=== PATIENT | male | born 1950 | race Caucasian/White ===

== ENCOUNTER 2016-08-28 13:59 | Inpatient (IN) ==
[2016-08-28] MEDS ORDERED: CLINDAMYCIN INJ 900 MG in PREMIX 1 EACH IV STA (14:52)
[2016-08-28] MEDS ORDERED: methylPREDNISolone SOD SUC 125 MG/2 ML VIAL IV STA (14:52)
--- NOTE | 2016-08-28 15:00 | Emergency Department Note ---
Arrival - Arrival Chief Complaint: Extremity Problem Stated Complaint: C/O BLISTERS ON RIGHT LOWER EXTREMITY ED Nursing Triage Note: C/O BLISTERS ON RIGHT LOWER EXTREMITY. PT HAS SPLINT ON LEG DUE TO Mode of Arrival: Stretcher Limitations: No Limitations Source: Patient Time Seen by Provider: 08/28/16 14:49 - History of Present Illness HPI Narrative: This 65-year-old white male presents with complaints of large bullae of the right lower extremitywith pain following evaluation yesterday at [facility] after a fall. He was told at that time that he had a fracture of some sort which sounds like the tibial plateau although he was only given a brace at that time. Notable was upon taking off the brace this morning, he had multiple bullae along the anterior compartment of the leg with some associated mild erythema but diffuse tenderness of the leg. Complicating this is the fact the patient has severe peripheral vascular disease followed by Dr. Alvarez at our institution and has had long-term problems with claudication pain. Currently, he is awaiting Dr. العراقي to address right carotid artery obstruction as well as Dr. waggoner to perform a cardiac catheterization although the patient currently does not have any complaints of chest pain. He currently denies any chills or fever in association with this. Despite the appearance of the leg he appears in no acute medical distress. Onset (ago): hour(s) (Patient presents 24 hours post inciting incident.) Allergies/Adverse Reactions: Allergies Allergy/AdvReac Type Severity Reaction Status Date / Time Sulfa (Sulfonamide Allergy Severe RASH Verified 07/12/16 06:46 Antibiotics) Home Medications: Home Medications Medication Instructions Recorded Confirmed Type Baclofen Tab [Lioresal] 10 mg PO TID 07/06/16 08/28/16 History HYDROcodone/ACETAMIN 10-325 [[place] 1 tablet PO Q4H 07/06/16 08/28/16 History 10-325] Tamsulosin [Flomax] 0.4 mg PO QAM 07/06/16 08/28/16 History Gabapentin Cap/Tab [Neurontin 600 mg PO TID 07/12/16 08/28/16 History Cap/Tab] Diltiazem Cd Cap [Cardizem CD] 240 mg PO QAM 07/14/16 08/28/16 History Rosuvastatin Calcium [Rosuvastatin 20 mg PO BEDTIME 08/28/16 08/28/16 History Calcium] Review of System - Review of System 12 point system: reviewed and no additional remarkable complaints except as stated - Review of System Constitutional: Present: as per HPI Cardiovascular: Present: as per HPI Musculoskeletal: Present: as per HPI Skin: Present: as per HPI Medical,Surgical,& Family Hx - Medical History Cardio: History of: Cardiac Dysrhythmia (A FIB) Comment Only: Cardiovascular Problems (aneurysm) Neurology: No history of: Seizures HEENT: History of: Ear Problem (hearing low), Eye Problem Musculoskeletal: History of: Herniated Disk (3 was givern injections in [place] does not remember dr or clinic) Other: No history of: Anesthesia Reactions - Surgical History Abdominal Surgeries: Comment Only: Abdominal Surgery (aneurysm) Orthopedic Surgeries: Surgical HX of;: Orthopedic Surgery (injections) - Family History Family History: Reports;: Family Cancer (mom), Family Heart Disease (dad) - Social History Smoking Status: Current every day smoker Frequency of Alcohol Use: Rarely Type of Drug Use: None Exam Physical Examination: GENERAL: Well developed, well nourished disheveled white male in no acute distress. HEENT: Normocephalic. No trauma. Moist mucous membranes. EOMI. PERRLA. ENT NML poor dentition NECK: Supple. No adenopathy. CARDIAC: Regular. No murmurs. Heart rate 105 CHEST: Clear to auscultation. No respiratory distress. O2 sat 97% ABDOMEN: Soft. Nontender. Active bowel sounds. EXTREMITIES: No trauma. Normal ROM. No pedal edema. Bilateral cool feet with palpable pulse and fair capillary refill but the left foot much less so on the right with associated diffuse anterior compartment bullae of the right lower extremity. Also notable is an extremely swollen right knee with joint effusion and diffuse ecchymosis SKIN: No diaphoresis. No rash. Bullous changes of the anterior compartment as noted above NEURO: Alert. Oriented 3. Motor, sensory, vibratory intact. No focal deficits. Vital Signs: Vital Signs Temperature 98.1 F 08/28/16 14:02 Pulse Rate 104 H 08/28/16 14:02 Respiratory Rate 18 08/28/16 14:02 Blood Pressure 103/77 08/28/16 14:02 O2 Sat by Pulse Oximetry 97 08/28/16 14:02 Course - Reevaluation(s) Reevaluation #1: Discussed with patient the need for hospitalization given his diapers complex problems. - Consultations Consultation #1: Discussed with the hospitalist service who will admit for further evaluation treatment. Results - Labs CBC & BMP: 08/28/16 15:19 08/28/16 15:19 Labs: I have reviewed the lab and noted its gross normalcy - Diagnostic Findings Procedure: Chest x-ray: image reviewed by me, report reviewed by me (Evidence of COPD as well as multiple calcified pulmonary nodules), CT: image reviewed by me, report reviewed by me (CT Gillian of the lower extremities reveals scattered diffuse arterial occlusions which by Flor by chronic supply blood down to the feet bilaterally likewise noted is the previously described abdominal aneurysm) , Ultrasound: image reviewed by me, report reviewed by me (No evidence of right lower extremity DVT) Disposition Clinical Impression: Bullous cellulitis of the RLE, Complex right tibial plateau fracture, Left carotid artery occlusion, Diffuse arterial occlusive disease, Polysubstance use Case discussed with: patient, patient's family Disposition: Still a Patient Condition: Guarded Time of Disposition: 18:03
[2016-08-28] MEDS ORDERED: CLINDAMYCIN INJ 50 ML IV ONE (15:26)
[2016-08-28] MEDS ORDERED: methylPREDNISolone SOD SUC 125 MG/2 ML VIAL ONE (15:26)
[2016-08-28 15:28] LABS: Basophils # 0.1 10*3/uL (0.0-0.2); Basophils % 0.5 % (0.0-0.8); Eosinophils # 0.4 10*3/uL (0.0-0.87); Eosinophils % 3.9 % (0.00-10.9); Hematocrit 40.2 VOL% (42.0-52.0); Hemoglobin 12.7 GM/DL (14.0-18.0); Immature Granulocytes % 0.5 %; Immature Granulocytes Absolute 0.05 #; Lymphocytes # 2.2 10*3/uL (1.4-4.0); Lymphocytes % 21.3 % (21.2-54.2); Mean Corpuscular HGB Conc 31.6 GM/DL (32-36); Mean Corpuscular Hemoglobin 30 PG (27-34); Mean Platelet Volume 8.9 FL (9.6-12.0); Monocytes % 9.7 % (1.7-12.7); Neutrophils # 6.8 10*3/uL (1.4-7.4); Neutrophils % 64.1 % (38.7-73.9); Platelet Count 278 T/CUMM (130-400); Red Blood Count 4.23 MC/CUMM (3.8-5.5); Red Cell Distribution Width 15.4 % (9.3-17.3); White Blood Count 10.5 T/CUMM (4-12)
[2016-08-28 15:46] LABS: PT Patient Result 11.1 SECS
--- NOTE | 2016-08-28 15:52 | Ultrasound Report ---
History: Swelling of the right lower extremity Date: 08/28/2016 Study: Right lower extremity color flow venous Doppler study Comparison exam: No previous similar exam Color Doppler, wave form analysis, and compression analysis of the deep veins of the right lower extremity from the common femoral vein level through the popliteal vein level shows that the veins are readily compressible. There is no abnormal intraluminal material to suggest thrombus. Waveform analysis is unremarkable. Ultrasound images were captured and archived Impression: No evidence of acute DVT on the right PROCEDURE INTERPRETED AT [facility] DEPARTMENT OF RADIOLOGY Final Report Signed by: Dr. Melody Quinones
[2016-08-28 15:58] LABS: Alanine Aminotransferase 15 U/L (16-61); Albumin 3.3 G/DL (3.4-5.0); Alkaline Phosphatase 117 U/L (45-117); Aspartate Amino Transferase 22 U/L (0-37); Bilirubin,Total < 0.39 MG/DL (0.2-1.0); Blood Urea Nitrogen 13 MG/DL (7-18); Calcium 8.2 MG/DL (8.5-10.1); Glucose 92 MG/DL (74-106); Osmolality,Calculated 287.7 MOS/KG (273-304); Potassium 4.2 MMOL/L (3.5-5.1); Sodium 145 MMOL/L (136-145); Total Protein 5.9 G/DL (6.4-8.3); Troponin I Only 0.019 NG/ML (0.00-0.045)
--- NOTE | 2016-08-28 16:15 | CT Report ---
History: Tibial plateau fracture Date: 08/28/2016 Study: CT right knee without contrast Comparison exam: No previous knee imaging study Thin spiral CT sections were obtained through the right knee without IV contrast. Multiplanar reconstruction images are also evaluated. This CT exam was performed using one or more the following dose reduction techniques: Automated exposure control, adjustment of the MA and/or KV according to patient size, or use of iterative reconstruction technique. There is a mildly displaced comminuted fracture of the proximal metaphysis and epiphysis of the right tibia with mild displacement of fracture fragments and relatively good alignment. Fracture planes extend to the articular surface of the lateral tibial plateau. There is some sclerosis about some of the tibial fracture planes, suggesting that there could be subacute component of this injury. There is also ankylosis of the proximal tibia and the fibular head at the level of the syndesmosis. There is a nondisplaced oblique fracture through the proximal fibular epiphysis and metaphysis with near anatomic alignment. There is a moderate suprapatellar joint effusion. There is mild osteophyte formation in all 3 joint compartments. There is soft tissue edema about the right lower leg. Impression: Acute or subacute comminuted fracture of the proximal tibial epiphysis and metaphysis, with extension of the fracture planes to the articular surface of the lateral tibial plateau. There is also a nondisplaced oblique fracture through the proximal fibular metaphysis and epiphysis. Joint effusion. PROCEDURE INTERPRETED AT [facility] DEPARTMENT OF RADIOLOGY Final Report Signed by: Dr. Melody Quinones
[2016-08-28 16:45] LABS: Barbiturates Screen,Urine Negative (Negative); Benzodiazepines Screen,Urine Negative (Negative); Cannabinoid Screen,Urine Positive (Negative); Opiate Screen,Urine Positive (Negative); Phencyclidine Screen,Urine Negative (Negative)
--- NOTE | 2016-08-28 16:51 | CT Report ---
History: Peripheral vascular disease. Abdominal aortic aneurysm. "cold leg." Date: 08/28/2016 Study: CT angiogram abdominal aorta and bilateral lower extremity runoff Comparison exam: CT angiogram abdomen and pelvis performed 9 days prior to this study Spiral CT sections were obtained from the lung bases through the feet during IV administration of 125 mL Omnipaque 350. In addition to multiplanar reconstruction images, 3-D images were also generated, archived, and analyzed. The CT exam was performed using one or more of the following dose reduction techniques: Automated exposure control, adjustment of the mA and/or kV according to patient size, or use of iterative reconstruction technique. There is an infrarenal abdominal aortic aneurysm which has been treated with endovascular stent. This is unchanged from the study 9 days ago. The [place] aorta sac measures approximately 8.2 cm, unchanged. There is no retroperitoneal hemorrhage. The exam is otherwise unchanged to the level of the groin from the previous study. There is scattered moderate atherosclerotic irregularity and narrowing throughout the right SFA which is patent. Similarly, there is patency of the moderately diseased right popliteal artery. There is severe trifurcation disease. The peroneal artery is patent to the level of the ankle. The severely diseased posterior tibial artery is grossly patent to the foot. The right anterior tibial artery occludes proximally. The left SFA is patent and exhibits moderate diffuse atherosclerotic irregularity. There is evidence of moderate to high grade focal stenosis of the proximal left popliteal artery superior to the level of the knee joint. The severely diseased left peroneal and posterior tibial arteries are grossly patent. The left anterior tibial artery occludes at its proximal aspect. The upper abdominal organs are unchanged from the recent comparison study. There is no acute abnormality of the liver, spleen, pancreas, bile ducts, adrenal glands, or kidneys. There is no karen bowel obstruction or pneumoperitoneum. There is diverticulosis without karen diverticulitis. Impression: Large infrarenal abdominal aortic aneurysm treated with endovascular stent. The [place] aneurysm sac measures over 8 cm diameter as before. There is no retroperitoneal hemorrhage or obvious endovascular leak. Severe trifurcation disease of either lower extremity as detailed above PROCEDURE INTERPRETED AT [facility] DEPARTMENT OF RADIOLOGY Final Report Signed by: Dr. Melody Quinones
--- NOTE | 2016-08-28 18:34 | Hospitalist History & Physical ---
Assessment and Plan - Time spent with patient Time spent with patient: Greater than 30 minutes (1) Tibial plateau fracture, right Status: Acute Assessment and plan: Mr. Adam is a 65-year-old white male with PVD, history of AAA repair 2, hypertension, and A. fib on [facility] admitted by hospital medicine with a complex right tibial plateau fracture. Patient has fracture blisters and increased pain and his leg is deformed. Patient also is in need of heart cath that was already scheduled for Monday with Dr. carr. Patient will be given IV fluids, pain and nausea control. We will restart his home medicines. Spoke with Dr. Atkins on the phone and he recommended using knee immobilizer for now and painting the blisters with Betadine. Will consult wound care nurse for in the morning to aspirate blisters and recommend further wound care under knee immobilizer. Dr. Atkins says he will not operate with fracture blisters as it is. We will also consult Dr. العراقي and let him know the patient is here and Dr. Carr in cardiology since patient was already scheduled for heart cath on Monday. Patient's case has been discussed with Dr. Lopez the admitting hospitalist for Dr. Hsieh and further recommendations to follow. Current Visit: Yes (2) Peripheral vascular disease Status: Acute Current Visit: Yes (3) Left carotid bruit Status: Acute Current Visit: Yes (4) History of AAA (abdominal aortic aneurysm) repair Status: Acute Current Visit: No (5) Bilateral iliac artery stent placement Status: Acute Current Visit: No (6) Tobacco abuse Status: Acute Current Visit: No (7) Elevated blood pressure reading Status: Acute Current Visit: No History of Present Illness Chief complaint: Right leg pain History of present illness: Mr. Adam is a 65 year old male with history of PVD, hypertension, afib, AAA repair in July presenting to the ED with 1 day history of right tibial plateau fracture with bullous blisters. Patient states he fell off a porch yesterday and was taken to [facility] where Dr. Otto diagnosed him with a complex tibial plateau fracture. They put him in a cast and he was supposed to follow-up with an orthopedic surgeon there in [place] on Monday. Patient states the splint that they put on him started hurting so he removed it today and he found a bunch of blisters with increased swelling of the knee leg and ankle. Patient also states that he has a 90% blockage in his left carotid that Dr. العراقي has been following and he was scheduled for a heart cath with Dr. carr this Monday. He just had endovascular aneurysm repair with extension of the iliac limbs by Dr. العراقي in early July. Patient developed A. fib on the table and he was started on Cardizem following that. Patient is not on any blood thinner thinners or antiplatelet medications. Patient denies headache, shortness of breath, chest pain, abdominal pain, dysuria, constipation or diarrhea. He does have decreased sensation of the right foot and no pulses could be found by Doppler on either foot. After discussion with Dr. Hernandes the ED physician and Dr. Rainey the hospitalist it was decided patient will be admitted for further evaluation and treatment. Home Medications Medication Instructions Recorded Confirmed Type Baclofen Tab [Lioresal] 10 mg PO TID 07/06/16 08/28/16 History HYDROcodone/ACETAMIN 10-325 [[place] 1 tablet PO Q4H 07/06/16 08/28/16 History 10-325] Tamsulosin [Flomax] 0.4 mg PO QAM 07/06/16 08/28/16 History Gabapentin Cap/Tab [Neurontin 600 mg PO TID 07/12/16 08/28/16 History Cap/Tab] Diltiazem Cd Cap [Cardizem CD] 240 mg PO QAM 07/14/16 08/28/16 History Rosuvastatin Calcium [Rosuvastatin 20 mg PO BEDTIME 08/28/16 08/28/16 History Calcium] Allergies Allergy/AdvReac Type Severity Reaction Status Date / Time Sulfa (Sulfonamide Allergy Severe RASH Verified 07/12/16 06:46 Antibiotics) Medical,Surgical,& Family Hx - Medical History Cardio: History of: Cardiac Dysrhythmia (A FIB) Comment Only: Cardiovascular Problems (aneurysm) Neurology: No history of: Seizures HEENT: History of: Ear Problem (hearing low), Eye Problem Musculoskeletal: History of: Herniated Disk (3 was givern injections in [place] does not remember dr or clinic) Other: No history of: Anesthesia Reactions - Surgical History Abdominal Surgeries: Comment Only: Abdominal Surgery (aneurysm) Orthopedic Surgeries: Surgical HX of;: Orthopedic Surgery (injections) Additional Surgical History: AAA repair in 2010. AAA revision with iliac extension in 07/2016 - Family History Family History: Reports;: Family Cancer (mom), Family Heart Disease (dad) - Social History Smoking Status: Current every day smoker Frequency of Alcohol Use: Rarely Type of Drug Use: None Lives With:: Alone Functional capacity: independent ambulation Review of systems: 10 system review of systems was obtained and pertinent positives and negatives per HPI Exam - Constitutional Vitals: Period Temp Pulse Resp BP Sys/Go Pulse Ox Last 24 Hr 98.7 F 109 18 158/102 96 Exam: Constitutional System: No distress. No tremulousness. Head: Normocephalic, atraumatic. Ears, Nose and Throat System: No evidence of Otitis or Mastoiditis. No epistaxis or discharge, poor dentition Eyes System: Pupils equal, round, and reactive. Extraocular muscles intact. Neck: Supple, without adenopathy, No jugular venous distention. No thyromegaly, neck mass, or prior surgery apparent. Carotid bruit on the left Respiratory System: Chest clear to auscultation. Cardiovascular System: Heart with regular rate and rhythm. No murmur. GI System: Abdomen soft, nontender. Normo active bowel sounds present. Musculoskeletal System: Right leg with edema around the knee lower leg and ankle , positive popliteal pulses, negative DP pulses, positive PT pulses Neurological System: No discernable sensory deficit. No aphasia, decreased sensation on the right dorsum of the foot Psychiatric System: Conversation is rational Results - Labs CBC & BMP: 08/28/16 15:19 08/28/16 15:19 Lab Results: I have reviewed the past 24 hour labs - Diagnostic Findings Procedure: CT: report reviewed by me (Right knee shows acute or subacute comminuted fracture of the proximal tibial epiphysis and metaphysis, with extension of the fracture planes to the articular surface of the lateral tibial plateau. There is also nondisplaced oblique fracture through the proximal fibular metaphysis and epiphysis with joint effusion)
[2016-08-28] MEDS ORDERED: PROMETHAZINE 25 MG TABLET PO PRN (18:45)
[2016-08-28] MEDS ORDERED: ONDANSETRON 4 MG/2 ML VIAL IV PRN (18:45)
[2016-08-28] MEDS ORDERED: DOCUSATE SODIUM 100 MG CAPSULE PO PRN (18:45)
[2016-08-28] MEDS ORDERED: guaiFENesin/DM ER 600-30 MG TABLET PO PRN (18:45)
[2016-08-28] MEDS ORDERED: NICOTINE 21 MG/24 HR PATCH TRANSDERM PRN (18:45)
[2016-08-28] MEDS ORDERED: diphenhydrAMINE CAP 25 MG CAPSULE PO PRN (18:45)
[2016-08-28] MEDS ORDERED: ACETAMINOPHEN 325 MG TABLET PO PRN ×2 (18:45)
[2016-08-28] MEDS ORDERED: MORPHINE 2 MG/1 ML SYRINGE IV PRN (18:45)
--- NOTE | 2016-08-28 18:45 | XRay Report ---
History: Cough Date: 08/28/2016 Study: Chest x-ray AP portable Comparison exam: July 12, 2016 chest x-ray The cardiac silhouette is not enlarged. There is no mediastinal mass. The pulmonary vasculature is not engorged. There is a calcified granuloma in the right lower lung. There is mild platelike subsegmental atelectasis in the right lung base. There is no karen pneumonia. There are some probable scattered mild emphysematous changes. There is no gross pleural effusion. There is osteopenia and mild thoracic spondylosis. Impression: Mild platelike subsegmental atelectasis right lung base. Chronic lung changes. No definite acute process otherwise PROCEDURE INTERPRETED AT [facility] DEPARTMENT OF RADIOLOGY Final Report Signed by: Dr. Melody Quinones
[2016-08-28] MEDS: BACLOFEN 10 MG TABLET PO SCH (23:02)
[2016-08-28] MEDS: GABAPENTIN 600 MG TABLET PO SCH (23:02)
[2016-08-28] MEDS: ROSUVASTATIN 20 MG TABLET PO SCH (23:02)
[2016-08-28] MEDS: SODIUM CHLORIDE 0.9% 1,000 ML IV SCH (23:28)
[2016-08-28] MEDS: CLINDAMYCIN INJ 600 MG in PREMIX 1 EACH IV SCH (23:29)
[2016-08-29 02:06] LABS: Basophils % 0.1 % (0.0-0.8); Hematocrit 35.1 VOL% (42.0-52.0); Hemoglobin 11.6 GM/DL (14.0-18.0); Immature Granulocytes % 0.5 %; Immature Granulocytes Absolute 0.05 #; Lymphocytes # 0.6 10*3/uL (1.4-4.0); Lymphocytes % 5.5 % (21.2-54.2); Mean Corpuscular Hemoglobin 30 PG (27-34); Mean Corpuscular Volume 91.6 FL (87-102); Mean Platelet Volume 9.6 FL (9.6-12.0); Monocytes # 0.1 10*3/uL (0.11-0.8); Monocytes % 1.4 % (1.7-12.7); Neutrophils # 9.5 10*3/uL (1.4-7.4); Neutrophils % 92.5 % (38.7-73.9); Platelet Count 273 T/CUMM (130-400); Red Blood Count 3.83 MC/CUMM (3.8-5.5); Red Cell Distribution Width 15.3 % (9.3-17.3); White Blood Count 10.3 T/CUMM (4-12)
[2016-08-29 02:33] LABS: Calcium 7.9 MG/DL (8.5-10.1); Magnesium 2.1 MG/DL (1.8-2.4); Potassium 4.4 MMOL/L (3.5-5.1)
[2016-08-29] MEDS: SODIUM CHLORIDE 0.9% 1,000 ML IV SCH ×4 (04:30→23:44)
[2016-08-29] MEDS: CLINDAMYCIN INJ 600 MG in PREMIX 1 EACH IV SCH ×4 (04:37→23:36)
--- NOTE | 2016-08-29 07:19 | XRay Report ---
Referring Physician: Shefali Mejia Exam: XR tibia fibula RT 2 views, XR knee 2V RT Date: August 29, 2016 at 6:17 AM Reason: Tibial plateau fracture, right knee pain, initial encounter Comparison: CT right knee August 28, 2016 Findings: There is a displaced fracture of the proximal right tibia, centered at the metaphysis and extending to the articular surface of the lateral tibial plateau. There is also a nondisplaced oblique fracture of the proximal right fibula. Please see the recent CT for further details. There is mild tricompartmental degenerative change at the right knee and a right knee joint effusion. There is marginal spurring at the ankle mortise and distal tibiofibular articulation. Marginal spurring is also noted at the calcaneus and tarsal bones. Nonspecific rounded densities project at the right calf and may be artifactual. Impression: 1. Displaced fracture of the proximal right tibia as above. 2. Nondisplaced fracture of the proximal right fibula. PROCEDURE INTERPRETED AT [facility] DEPARTMENT OF RADIOLOGY Final Report Signed by: Dr. Musa Farmer
--- NOTE | 2016-08-29 07:43 | EKG Report ---
Stationary ECG Study [facility] Test Date: 08/29/2016 7:32:54 AM Pat Name: RONDA GREER Department: Room: 329 Gender: M Rn Picu: MARY : 1950 Requested by: Shefali Mejia Order Number: [id number] Reading MD: RED CARLISLE Intervals [place] Rate: 100 P: 79 OK: 147 QRS: 78 QRSD: 92 T: 55 QT: 325 QTc: 382 Interpretive Statements SINUS TACHYCARDIA Electronically Signed On 09-01-16 10:02:52 CDT by RED CARLISLE [email or web address]
--- NOTE | 2016-08-29 09:13 | Hospitalist Progress Note ---
Assessment and Plan (1) CAD (coronary artery disease) Status: Acute Assessment and plan: As noted by cardiology, the patient underwent a stress nuclear test on 08/09/16 demonstrating evidence of inferior ischemia. He had been scheduled to undergo cardiac catheterization on 08/31/16. He is presently stable with no chest pain or shortness of breath. Current Visit: Yes Qualifiers: Coronary Disease-Associated Artery/Lesion type: [place] artery [place] vs. transplanted heart: [place] heart Associated angina: without angina Qualified Code(s): I25.10 - Atherosclerotic heart disease of [place] coronary artery without angina pectoris (2) Carotid artery disease Status: Acute Assessment and plan: As also noted by cardiology, carotid ultrasound has demonstrated him to have an obstruction of 80-99% of the proximal left internal carotid artery. He is asymptomatic at this time with no neurologic complaints. Current Visit: Yes (3) Blisters of multiple sites Status: Acute Assessment and plan: He has multiple blisters of his right lower extremity, in the area covered by the previous cast, with no evidence of active infection. He will be seen in consultation by the wound care nurse for management. Current Visit: Yes (4) History of AAA (abdominal aortic aneurysm) repair Status: Chronic Assessment and plan: Stable. No intervention planned at this time. Current Visit: No (5) Tibial plateau fracture, right Status: Acute Assessment and plan: He has been seen in consultation by orthopedic surgery. They will defer surgery until resolution of the blisters of his right lower extremity. He will be treated with the requested dose of [place] for pain control. Current Visit: Yes (6) Hypertension Status: Chronic Assessment and plan: His blood pressure today is 147/89.He is being treated with diltiazem for his hypertension. Current Visit: Yes (7) History of atrial fibrillation Status: Chronic Assessment and plan: His heart rate has been between 93-108 /min since hospitalization. He will continue on diltiazem. Current Visit: Yes Hospitalist: Subjective Interval history: Mr. Spear is a 65-year-old white male with history of peripheral vascular disease, coronary artery disease, hypertension, atrial fibrillation, and aortic abdominal aneurysm status post endograft. He sustained a complex right tibial plateau fracture on 08/27/16 for which she was treated at [facility]. He had a cast placed at that time. He subsequently noticed severe swelling of his right foot for which reason he came to this hospital. The cast was removed here demonstrating multiple blisters of his right leg. There was no evidence of an active infection. He was seen in consultation by orthopedic surgery who elected to defer surgery at this time until resolution of the blisters of his right leg. He complains of pain of his right knee and leg and requests that his [place] be increased from 7.5-10 mg. Mr. Spear has a previous history of coronary and carotid artery disease. He was seen in consultation by cardiology. They had performed an outpatient stress nuclear test on him by Dr. Carr on 08/09/16 demonstrating evidence of inferior ischemia. Patient was scheduled to undergo a cardiac catheterization on 08/31/16. Patient is stable with no chest pain or shortness of breath. His atrial fibrillation has been well controlled with diltiazem. Exam - Constitutional Vitals: Period Temp Pulse Resp BP Sys/Go Pulse Ox Last 24 Hr 97.5 F-98.7 F 96-109 18-20 126-160/75-102 96-98 General appearance: normal weight, no acute distress - Head Head exam: Present: normal inspection, normocephalic - Eye Eye exam: Present: EOMI Pupils: Present: ROSENDO - Neck Neck exam: Present: normal inspection - Respiratory Respiratory exam: Present: clear to auscultation bilaterally - Cardiovascular Cardiovascular exam: Present: regular rate and rhythm, other (No murmur, rub, or gallop.) - GI/Abdominal GI/Abdominal exam: Present: normal bowel sounds, soft, other (Nontender with no palpable masses or hepatosplenomegaly.) - Extremities Exam Extremities exam: Present: other (There were multiple blisters of his right leg between the knee and ankle. There is no evidence of active infection.) - Back Exam Back exam: Present: normal inspection - Neurological Exam Neurological exam: Present: alert, oriented X3 - Psychiatric Psychiatric exam: Present: normal affect - Skin Skin exam: Present: normal color, warm, dry Results - Labs CBC & BMP: 08/29/16 01:33 08/29/16 01:33 Quality Measures - VTE Contraindication to Mechanical VTE Prophylaxis: Trauma to Legs
[2016-08-29] MEDS: DILTIAZEM CD 240 MG CAPSULE PO SCH (09:37)
[2016-08-29] MEDS: TAMSULOSIN 0.4 MG CAPSULE PO SCH ×2 (09:39→16:01)
[2016-08-29] MEDS: PANTOPRAZOLE 40 MG TABLET PO SCH (09:39)
[2016-08-29] MEDS: GABAPENTIN 600 MG TABLET PO SCH ×3 (09:39→21:06)
[2016-08-29] MEDS: BACLOFEN 10 MG TABLET PO SCH ×3 (09:39→21:06)
--- NOTE | 2016-08-29 11:22 | Orthopedic Consult Note ---
History of Present Illness Chief complaint: Right tibial plateau fracture, with fracture blisters History of present illness: Mr. Adam is a 65 year old male See dictated reports Plan for initial nonoperative treatment due to fracture blistering and the severity of his carotid artery disease as well as coronary artery disease. Consider what is the best option for him nonoperative versus operative once these other issues have been decided about it within the next day or 2 Home Medications Medication Instructions Recorded Confirmed Type Baclofen Tab [Lioresal] 10 mg PO TID 07/06/16 08/28/16 History HYDROcodone/ACETAMIN 10-325 [[place] 1 tablet PO Q4H 07/06/16 08/28/16 History 10-325] Tamsulosin [Flomax] 0.4 mg PO QAM 07/06/16 08/28/16 History Gabapentin Cap/Tab [Neurontin 600 mg PO TID 07/12/16 08/28/16 History Cap/Tab] Diltiazem Cd Cap [Cardizem CD] 240 mg PO QAM 07/14/16 08/28/16 History Rosuvastatin Calcium [Rosuvastatin 20 mg PO BEDTIME 08/28/16 08/28/16 History Calcium] Allergies Allergy/AdvReac Type Severity Reaction Status Date / Time Sulfa (Sulfonamide Allergy Severe RASH Verified 07/12/16 06:46 Antibiotics) Medical,Surgical,& Family Hx - Medical History Cardio: History of: Cardiac Dysrhythmia (A FIB) Comment Only: Cardiovascular Problems (aneurysm) Neurology: No history of: Seizures HEENT: History of: Ear Problem (hearing low), Eye Problem Respiratory: History of: COPD Renal: History of: Renal Problems (URINARY RETENTION) Musculoskeletal: History of: Herniated Disk (4 was givern injections in [place] does not remember dr or clinic) Other: No history of: Anesthesia Reactions - Surgical History Abdominal Surgeries: Comment Only: Abdominal Surgery (aneurysm) Orthopedic Surgeries: Surgical HX of;: Orthopedic Surgery (injections) - Family History Family History: Reports;: Family Cancer (mom), Family Heart Disease (dad) - Social History Smoking Status: Current every day smoker Frequency of Alcohol Use: Rarely Type of Drug Use: None Exam - Constitutional Vitals: Period Temp Pulse Resp BP Sys/Go Pulse Ox Last 24 Hr 97.5 F-98.7 F 96-109 18-20 126-160/75-102 96-98 Results - Labs CBC & BMP: 08/29/16 01:33 08/29/16 01:33
[2016-08-29] MEDS: ENOXAPARIN 40 MG/0.4 ML SYRINGE SUBCUT SCH ×2 (11:42→18:30)
--- NOTE | 2016-08-29 17:52 | Vascular Surgery Consult Note ---
History of Present Illness Chief complaint: left carotid stenosis,aaa repair History of present illness: Mr. Adam is a 65 year old male Aamir Spear is a 65-year-old man admitted with a right tibial plateau fracture with some significant interestingly he underwent the endovascular revision of a previous aortic stent graft that had developed and obliques of both common iliacs he had stent extension of both iliacs and has done well and a CT scan done on this admission shows no evidence of the Endo legs any longer. He has very large aortic aneurysm sac which I would not anticipate decreasing in diameter rapidly. Significantly he was evaluated by Dr. waggoner and underwent carotid ultrasound and subsequently CT angiography about a week ago and has been found to have a very high-grade stenosis of the left internal carotid artery. Old evidence indicates that this is asymptomatic and he has an open right carotid system. In discussing it with Dr. Atkins at this point in time I do not think it is critical that the carotid be repaired and that if the right leg needs to undergo repair I think that it can safely be done prior to a carotid endarterectomy. Also I would prefer not to operate on the carotid until we are certain no infection is present due to the blistering on the leg. I will follow with you while he is here. Home Medications Medication Instructions Recorded Confirmed Type Baclofen Tab [Lioresal] 10 mg PO TID 07/06/16 08/28/16 History HYDROcodone/ACETAMIN 10-325 [[place] 1 tablet PO Q4H 07/06/16 08/28/16 History 10-325] Tamsulosin [Flomax] 0.4 mg PO QAM 07/06/16 08/28/16 History Gabapentin Cap/Tab [Neurontin 600 mg PO TID 07/12/16 08/28/16 History Cap/Tab] Diltiazem Cd Cap [Cardizem CD] 240 mg PO QAM 07/14/16 08/28/16 History Rosuvastatin Calcium [Rosuvastatin 20 mg PO BEDTIME 08/28/16 08/28/16 History Calcium] Allergies Allergy/AdvReac Type Severity Reaction Status Date / Time Sulfa (Sulfonamide Allergy Severe RASH Verified 07/12/16 06:46 Antibiotics) Medical,Surgical,& Family Hx - Medical History Cardio: History of: Cardiac Dysrhythmia (A FIB) Comment Only: Cardiovascular Problems (aneurysm) Neurology: No history of: Seizures HEENT: History of: Ear Problem (hearing low), Eye Problem Respiratory: History of: COPD Renal: History of: Renal Problems (URINARY RETENTION) Musculoskeletal: History of: Herniated Disk (4 was givern injections in [place] does not remember dr or clinic) Other: No history of: Anesthesia Reactions - Surgical History Abdominal Surgeries: Comment Only: Abdominal Surgery (aneurysm) Orthopedic Surgeries: Surgical HX of;: Orthopedic Surgery (injections) - Family History Family History: Reports;: Family Cancer (mom), Family Heart Disease (dad) - Social History Smoking Status: Current every day smoker Frequency of Alcohol Use: Rarely Type of Drug Use: None Exam - Constitutional Vitals: Period Temp Pulse Resp BP Sys/Go Pulse Ox Last 24 Hr 97.5 F-99.0 F 82-109 18-20 126-160/75-102 95-98 Quality Measures - VTE Contraindication to Mechanical VTE Prophylaxis: Trauma to Legs Results - Labs CBC & BMP: 08/29/16 01:33 08/29/16 01:33
--- NOTE | 2016-08-29 18:07 | Cardiology Consult Note ---
I, Patricia Berry RN, am scribing for, and in the presence of, Juan Gordon MD 17:59. Assessment and Plan - Time spent with patient Time spent with patient: Greater than 30 minutes (Due to assessment, planning, documentation, medication review) (1) Tibial plateau fracture, right Status: Acute Assessment and plan: This is a complicated situation. He has a tibial plateau fracture, blisters on his right leg without obvious infection[? Due to the cast, allergic reaction to the glue,/cast, or possibly cast was on too tight-?], at least moderate left carotid disease and the suggestion of some coronary disease. plan/recommendation: Probably allow the blisters to resolve before doing any other intervention If Dr. Braeden Atkins says the plateau fracture has to be fixed soon or there will be major problems, then it would trump other options. Otherwise if it can wait, I would allow his blister to heal, then doing a heart cath, then do the plateau fracture surgery--in this order. The above was discussed with the patient. He agrees with the plan. I called Dr. Braeden Atkins to talk with him, But could not get him. I will try to talk with him tomorrow I discussed with the patient the benefits of stopping tobacco/nicotine, the problems with continuing to use it, and options of treatment. The patient is considering this option. We will be sure he is on a beta-yeimi, aspirin, etc. so we will be well treated medically for CAD. He wants to quit smoking but says he cannot. He craves cigarettes very much. He is requesting help with quitting smoking. He craves his cigarettes very much. Will give a trial of bupropion 75 mg p.o. twice daily. I discussed the situation with Dr. carr, his primary director of vocational guidance. He agrees with our thoughts and the plans. Thank you for allowing me to participate in this patient's care Current Visit: Yes (2) Hypertension Status: Chronic Current Visit: Yes (3) Carotid artery bruit Status: Chronic Current Visit: Yes (4) History of atrial fibrillation Status: Chronic Current Visit: Yes (5) History of AAA (abdominal aortic aneurysm) repair Status: Chronic Current Visit: No (6) Abnormal myocardial perfusion study Problem details: it suggest inferior ischemia Status: Acute Current Visit: Yes (7) Carotid artery disease Status: Acute Current Visit: Yes (8) Blister of leg without infection Status: Acute Current Visit: Yes History of Present Illness - Data of Consult Patient: known to practice within the last 3 years Consult date: 08/28/16 Requesting Physician: Shefali Mejia - Consult Narrative Reason for consult: Atrial fibrillation History of present illness: Vp Strategic Planning: Dr. Carr Mr. Adam is a 65 year old male who is routinely seen by Dr. Carr with a history of bilateral carotid bruits, hypertension, atrial fibrillation ( recently new onset), herniated disc, and COPD. He had carotid ultrasound done August 09 of this year that showed 1-39% stenosis in the proximal right internal carotid artery, 80-99% stenosis in the proximal left internal carotid artery, and greater than 50% stenosis in the left external carotid artery. He tells me he is seeing Dr. العراقي for this. Nuclear stress test done in Dr. Carr's office August 09 of this year was read as an abnormal perfusion study. It was suggestive of low to moderate risk for future cardiovascular events, suggestive of single-vessel disease. It showed the perfusion defect is being in the distribution of the right coronary artery. He has been scheduled for an outpatient heart catheterization with Dr. Carr this Monday. Echo done in July of this year with ejection fraction 50-55%. Surgical history includes AAA repair 2010. He developed endoleak and underwent bilateral iliac artery stent graft placement extending both iliac outflow limbs by Dr. العراقي on July. He developed postop atrial fibrillation and was cardioverted with IV Cardizem. Family history includes mother with aneurysm and cancer in father with heart disease. He reports that he currently smokes every day, but states he is quitting. He is currently chewing nicotine gum. He reports he fell from his porch Monday and went to the patient have a general ER for evaluation. He denies dizziness or loss of consciousness. He was told he had a tibial plateau fracture and was put in a "wraparound cast", and to follow up there this week. He states his legs started hurting with a cast onset he removed it and found blisters on his right lower extremity as well as increased swelling in the left leg and ankle. He presented to the emergency department [facility] for further evaluation. Orthopedics has been consulted to evaluate this. Currently he is resting in bed in no acute distress. He denies any chest pain, shortness of breath, palpitations, or dizziness. EKG done on admission showed sinus tachycardia with heart rate of 100. 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 His blood pressure has been elevated , the most recent blood pressure is 147/89. His home medications have been restarted. Edema noted to right lower extremity, from the knee down. Blisters noted to right lower extremity. He reports discomfort in his right lower extremity when he tries to move it. Venous Doppler of the right lower extremity done yesterday was negative for DVT. His cardiac biomarkers have been negative 1. CC: Marshall Hsieh - Home Medications and Allergies Home Medications: Home Medications Medication Instructions Recorded Confirmed Type Baclofen Tab [Lioresal] 10 mg PO TID 07/06/16 08/28/16 History HYDROcodone/ACETAMIN 10-325 [[place] 1 tablet PO Q4H 07/06/16 08/28/16 History 10-325] Tamsulosin [Flomax] 0.4 mg PO QAM 07/06/16 08/28/16 History Gabapentin Cap/Tab [Neurontin 600 mg PO TID 07/12/16 08/28/16 History Cap/Tab] Diltiazem Cd Cap [Cardizem CD] 240 mg PO QAM 07/14/16 08/28/16 History Rosuvastatin Calcium [Rosuvastatin 20 mg PO BEDTIME 08/28/16 08/28/16 History Calcium] Allergies/Adverse Reactions: Allergies Allergy/AdvReac Type Severity Reaction Status Date / Time Sulfa (Sulfonamide Allergy Severe RASH Verified 07/12/16 06:46 Antibiotics) - Constitutional Constitutional: Present: as per HPI - EENT Eyes: Present: loss of vision, requires corrective lense Ears: Present: decreased hearing. Absent: ear pain, tinnitus Nose, mouth and throat: Present: headache(s). Absent: epistaxis, sore throat - Cardiovascular Cardiovascular: Present: dyspnea on exertion, edema. Absent: chest pain at rest , chest pain with activity, diaphoresis, dyspnea, radiating jaw, neck or arm pain, lightheadedness, orthopnea, palpitations - Respiratory Respiratory: Present: dyspnea on exertion. Absent: cough, dyspnea, hemoptysis, wheezing - Gastrointestinal Gastrointestinal: Absent: abdominal pain, constipation, diarrhea, hematemesis, hematochezia, melena, nausea, vomiting - Genitourinary Genitourinary: Absent: dysuria, hematuria - Musculoskeletal Musculoskeletal: Present: back pain, joint swelling, limited range of motion, muscle weakness - Neurological Neurological: Present: abnormal gait, frequent falls. Absent: confusion, dizziness, focal weakness, syncope - Psychiatric Psychiatric: Absent: anxiety, confusion, depression - Endocrine Endocrine: Present: fatigue - Hematologic/Lymphatic Hematologic/Lymphatic: Present: easy bruising. Absent: easy bleeding Medical,Surgical,& Family Hx - Medical History Cardio: History of: Cardiac Dysrhythmia (A FIB), Cardiovascular Problems ( aneurysm) Neurology: No history of: Seizures HEENT: History of: Ear Problem (hearing loss), Eye Problem Respiratory: History of: COPD Renal: History of: Renal Problems (URINARY RETENTION) Musculoskeletal: History of: Herniated Disk (4 was givern injections in [place] does not remember dr or clinic) - Surgical History Abdominal Surgeries: Surgical HX of: Abdominal Surgery (aneurysm) Orthopedic Surgeries: Surgical HX of;: Orthopedic Surgery (injections) - Family History Family History: Reports;: Family Cancer (mom), Family Heart Disease (dad) - Social History Smoking Status: Current every day smoker Have you smoked in the last 12 months: Yes Time spent discussing smoking cessation with patient: 3 to 10 minutes (States he is planning to quit, currently chewing nicotine gum.) Frequency of Alcohol Use: None Type of Drug Use: None Marital Status: Lives With:: Spouse Functional capacity: uses cane/walker Physical Examination Vital Signs Temp Pulse Resp BP Pulse Ox 98.1 F 104 H 18 103/77 97 08/28/16 14:02 08/28/16 14:02 08/28/16 14:02 08/28/16 14:02 08/28/16 14:02 General: Present: Appears Well, No Apparent Distress HEENT: Present: PERRL, Mucus Membranes Moist Neck: Present: Supple Neck, Midline Trachea, Bruit Cardiac: Present: Regular Rhythm, No Murmur, Tachycardia Neuro: Absent: Resting Tremor, Essential Tremor Abdomen: Present: Soft, Active Bowel Sounds, Non-Tender. Absent: Distended Skin: Present: Other (Blisters to right lower extremity) Musculoskeletal: Present: Decreased Range of Motion, Pain in Joint Gait: Present: Poor Gait Extremities: Present: Normal Upper Extr. Pulses, +2 Edema (Right lower extremity ). Absent: Normal Gait, Normal Lower Extr. Pulses (Weak) Result/EKG - Labs CBC & BMP: 08/29/16 01:33 08/29/16 01:33 Lab Results: I have reviewed the past 24 hour labs Labs: Laboratory Results - last 24 hr 08/29/16 08/29/16 01:33 01:33 WBC 10.3 RBC 3.83 Hgb 11.6 L Hct 35.1 L MCV 91.6 MCH 30 MCHC 33.0 RDW 15.3 Plt Count 273 MPV 9.6 Neut % (Auto) 92.5 H Lymph % (Auto) 5.5 L [place] % (Auto) 1.4 L Eos % (Auto) 0.0 Baso % (Auto) 0.1 Neut # (Auto) 9.5 H Lymph # (Auto) 0.6 L [place] # (Auto) 0.1 L Eos # (Auto) 0.0 Baso # (Auto) 0.0 Immature Gran % 0.5 Nucleated RBC % 0.0 Immature Gran # 0.05 Nucleated RBCs # 0.00 Sodium 143 Potassium 4.4 Chloride 113 H Carbon Dioxide 23 Anion Gap 11.4 BUN 19 H Creatinine 1.00 GFR Calculation 99 BUN/Creatinine Ratio 19.00 Glucose 190 H Calculated Osmolality 291.0 Calcium 7.9 L Magnesium 2.1 - EKG EKG results: interpreted by me EKG shows: tachycardia, sinus rhythm Quality Measures - VTE Contraindication to Mechanical VTE Prophylaxis: Trauma to Legs IEvan Dale, MD, personally performed the services described in this documentation, ascribed by Patricia Berry RN in my presence, and it is both accurate and complete [id number] .
[2016-08-29] MEDS: buPROPion 75 MG TABLET PO SCH ×2 (18:30→21:06)
[2016-08-29] MEDS: METOPROLOL TARTRATE 25 MG TABLET PO SCH ×2 (18:30→21:06)
[2016-08-29] MEDS: ROSUVASTATIN 20 MG TABLET PO SCH (21:06)
[2016-08-30] MEDS: CLINDAMYCIN INJ 600 MG in PREMIX 1 EACH IV SCH ×3 (04:38→17:09)
--- NOTE | 2016-08-30 07:38 | Consultation ---
A 65-year-old white male admitted last night for evaluation of injury that he sustained on Monday, two days ago. He reportedly fell at home injuring his right knee. He is unable to bear weight. Ravin longo was seen in [facility] where he was diagnosed with a tibial plateau fracture and placed in some type of splint. He ultimately removed the splint stating that it was too tight. At that point, he noted multiple areas of ecchymotic blistering about the right lower leg, which prompted presentation in [facility]. He has a significant history of coronary artery disease as well as caroti d artery disease. Dr. العراقي had scheduled a carotid endarterectomy for the near future prior to his most recent fall. I was asked to evaluate regarding his right tibial plateau fracture, no other in juries reported. PHYSICAL EXAMINATION GENERAL: Confirms thin white male. EXTREMITIES: He has a moderate swelling about the right knee with significant amounts of fracture blistering extending from just below the knee about the anterior medial and lateral tibia. This ext ends to about the mid diaphyseal region. Distally, he has decreased motion and described sensibilit y intact and palpable dorsalis pedis. Decreased motion secondary to pain. Radiographs confirm a tibial plateau fracture. The lateral is fairly well aligned. On the AP view, he does have a split, lateral plateau without much depression areas in the medial extension of the component. IMPRESSION: TIBIAL PLATEAU FRACTURE, RIGHT. PLAN: I have discussed with him the diagnosis and treatment options including his multiple medical issues and how they would or would not affect the treatment decisions. Currently, with all of the f racture blistering, we are going to delay any type of intervention for the time being. All blisters will be cleaned up, prepped and then popped with a sterile needle and then a soft dressing so that they can dry up and heal. I will discuss the case with Dr. العراقي and his retail sales associate, for he repor ts to have been scheduled for some type of heart procedure as well. We can therefore make decision whether operative or nonoperative treatment is in his best interest or not. Thank you for the consultation.
--- NOTE | 2016-08-30 08:27 | Orthopedic Progress Note ---
Orthopedics - Subjective Interval history: No new changes comfortable with knee immobilizer okay for bed to chair mobility nonweightbearing on the right. Discussed with Dr. Alvarez has no plans for carotid intervention at this time per Dr. Gordon's note he does want to go ahead and cath him. I am no problem defer until that is completed we will consider ORIF which his blisters have healed and his cardiac status has been evaluated. Exam - Constitutional Vitals: Period Temp Pulse Resp BP Sys/Go Pulse Ox Last 24 Hr 97.3 F-99.0 F 69-102 15-20 131-151/70-88 95-98 Results - Labs CBC & BMP: 08/29/16 01:33 08/29/16 01:33 Quality Measures - VTE Contraindication to Mechanical VTE Prophylaxis: Trauma to Legs
[2016-08-30] MEDS: TAMSULOSIN 0.4 MG CAPSULE PO SCH (08:58)
[2016-08-30] MEDS: DILTIAZEM CD 240 MG CAPSULE PO SCH (08:58)
[2016-08-30] MEDS: PANTOPRAZOLE 40 MG TABLET PO SCH (08:58)
[2016-08-30] MEDS: GABAPENTIN 600 MG TABLET PO SCH ×3 (08:59→20:52)
[2016-08-30] MEDS: METOPROLOL TARTRATE 25 MG TABLET PO SCH ×2 (08:59→20:50)
[2016-08-30] MEDS: buPROPion 75 MG TABLET PO SCH ×2 (08:59→20:52)
[2016-08-30] MEDS: BACLOFEN 10 MG TABLET PO SCH ×3 (08:59→20:52)
--- NOTE | 2016-08-30 09:04 | Hospitalist Progress Note ---
Assessment and Plan (1) CAD (coronary artery disease) Status: Acute Assessment and plan: As noted by cardiology, the patient underwent a stress nuclear test on 08/09/16 demonstrating evidence of inferior ischemia. He had been scheduled to undergo cardiac catheterization on 08/31/16. He is presently stable with no chest pain or shortness of breath. Current Visit: Yes Qualifiers: Coronary Disease-Associated Artery/Lesion type: [place] artery [place] vs. transplanted heart: [place] heart Associated angina: without angina Qualified Code(s): I25.10 - Atherosclerotic heart disease of [place] coronary artery without angina pectoris (2) Carotid artery disease Status: Acute Assessment and plan: As also noted by cardiology, carotid ultrasound has demonstrated him to have an obstruction of 80-99% of the proximal left internal carotid artery. He is asymptomatic at this time with no neurologic complaints. Current Visit: Yes (3) Blisters of multiple sites Status: Acute Assessment and plan: He has multiple blisters of his right lower extremity, in the area covered by the previous cast, with no evidence of active infection. He has been seen in consultation by the wound care nurse for management. Current Visit: Yes (4) History of AAA (abdominal aortic aneurysm) repair Status: Chronic Assessment and plan: Stable. No intervention planned at this time. He has been seen in follow-up by vascular surgery. Current Visit: No (5) Tibial plateau fracture, right Status: Acute Assessment and plan: He has been seen in consultation by orthopedic surgery. They will defer surgery until resolution of the blisters of his right lower extremity. He will be treated with the requested dose of [place] for pain control. Current Visit: Yes (6) Hypertension Status: Chronic Assessment and plan: His blood pressure today is 131/70. He is being treated with diltiazem for his hypertension. Current Visit: Yes (7) History of atrial fibrillation Status: Chronic Assessment and plan: His heart rate is 69/min. He will continue on diltiazem. Current Visit: Yes Hospitalist: Subjective Interval history: Mr. Spear is a 65-year-old white male with history of peripheral vascular disease, coronary artery disease, essential hypertension, atrial fibrillation, carotid artery disease, and abdominal aortic aneurysm status post endograft. He sustained a complex right tibial fracture on 08/27/16 for which he was treated at [facility] with a cast. He subsequently developed severe severe swelling of his right foot for which reason he came to this hospital. The cast was removed demonstrating multiple blisters of his right leg. There was no evidence of an active infection and 2 sets of blood cultures have been negative. He was seen in consultation by orthopedic surgery who elected to defer surgery at the present time until resolution of the blisters of his right leg. Patient continues to complain of pain of his right knee and leg which is improved with [place]. Mr. Spear is a previous history of coronary and carotid artery disease. He underwent a stress nuclear test by Dr. Carr on 08/09/16 demonstrating evidence of inferior ischemia. A carotid duplex Doppler examination demonstrated him to have severe obstruction of 80-99% of the proximal left internal carotid artery which has been asymptomatic. He is not presently experiencing chest pain, shortness of breath, or any neurologic symptoms. His atrial fibrillation has been well controlled with diltiazem. After consultation yesterday with orthopedic surgery, vascular surgery, and cardiology, there has been agreement that the blisters of his right leg will need to resolve following which he will undergo cardiac catheterization, orthopedic surgery, and vascular surgery, in that order. The patient is in agreement with this plan. Exam - Constitutional Vitals: Period Temp Pulse Resp BP Sys/Go Pulse Ox Last 24 Hr 97.3 F-99.0 F 69-102 15-20 131-151/70-88 95-98 General appearance: no acute distress - Head Head exam: Present: normal inspection, normocephalic - Eye Eye exam: Present: EOMI Pupils: Present: ROSENDO - Neck Neck exam: Present: normal inspection - Respiratory Respiratory exam: Present: clear to auscultation bilaterally - Cardiovascular Cardiovascular exam: Present: regular rate and rhythm, other (No murmur, rub, or gallop.) - GI/Abdominal GI/Abdominal exam: Present: normal bowel sounds, soft, other (Nontender with no palpable masses or hepatosplenomegaly.) - Extremities Exam Extremities exam: Present: other (Blisters of right leg with no evidence of active infection.) - Back Exam Back exam: Present: normal inspection - Neurological Exam Neurological exam: Present: alert, oriented X3 - Psychiatric Psychiatric exam: Present: normal affect, normal mood - Skin Skin exam: Present: normal color, warm, dry Results - Labs CBC & BMP: 08/29/16 01:33 08/29/16 01:33 Quality Measures - VTE Contraindication to Mechanical VTE Prophylaxis: Trauma to Legs
[2016-08-30] MEDS: SODIUM CHLORIDE 0.9% 1,000 ML IV SCH ×3 (09:20→17:09)
--- NOTE | 2016-08-30 17:11 | Event Note ---
Mr. Spear is doing well certainly with no neurologic deficits that we can detect at this point we are doing wound care on his left lower right lower leg and once we see healing we can decide then whether we need to consider right carotid left carotid endarterectomy or tibial plateau repair
[2016-08-30] MEDS: ENOXAPARIN 40 MG/0.4 ML SYRINGE SUBCUT SCH (18:06)
[2016-08-30] MEDS: ROSUVASTATIN 20 MG TABLET PO SCH (20:52)
--- NOTE | 2016-08-30 22:01 | Cardiology Progress Note ---
I, Patricia Berry RN, am scribing for, and in the presence of, Juan Gordon MD 21:58. Assessment and Plan (1) Hypertension Status: Chronic Assessment and plan: Initial assessment and plan 08/29/2016: plan/recommendation: Probably allow the blisters to resolve before doing any other intervention If Dr. Braeden Atkins says the plateau fracture has to be fixed soon or there will be major problems, then it would trump other options. Otherwise if it can wait, I would allow his blister to heal, then doing a heart cath, then do the plateau fracture surgery--in this order. The above was discussed with the patient. He agrees with the plan. I called Dr. Braeden Atkins to talk with him, But could not get him. I will try to talk with him tomorrow I discussed with the patient the benefits of stopping tobacco/nicotine, the problems with continuing to use it, and options of treatment. The patient is considering this option. We will be sure he is on a beta-yeimi, aspirin, etc. so we will be well treated medically for CAD. He wants to quit smoking but says he cannot. He craves cigarettes very much. He is requesting help with quitting smoking. He craves his cigarettes very much. Will give a trial of bupropion 75 mg p.o. twice daily. I discussed the situation with Dr. carr, his primary development technologist. He agrees with our thoughts and the plans. Assessment and plan 08/30/2016: The tibial plateau ORIF is being deferred for now. Since he is not having active angina, I will also defer the cath until his blisters on his legs are healed without infection. To do a cath, place a stent artery bypass and then have an active infection in his leg would be a difficult situation, it might even seed the stents with infection which would be a serious problem.. Thus, he is not pushing us to do a cath with chest pain or angina, so we will delay. Thus, from my standpoint he may be discharged home when you say so. Dr. waggoner will see him back in 2-4 weeks and see how his blisters are doing. Once they were healed he will do his heart cath. After that time, he can undergo the ORIF of his right tibial plateau fracture. Current Visit: Yes (2) Carotid artery bruit Status: Chronic Current Visit: Yes (3) History of atrial fibrillation Status: Chronic Current Visit: Yes (4) Tibial plateau fracture, right Status: Acute Current Visit: Yes (5) History of AAA (abdominal aortic aneurysm) repair Status: Chronic Current Visit: No (6) Abnormal myocardial perfusion study Problem details: it suggest inferior ischemia Status: Acute Current Visit: Yes (7) Blister of leg without infection Status: Acute Current Visit: Yes (8) CAD (coronary artery disease) Status: Acute Current Visit: Yes Qualifiers: Coronary Disease-Associated Artery/Lesion type: [place] artery [place] vs. 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 Carr Mr. Spear is seen resting in bed in no acute distress. He denies chest pain, shortness of breath, palpitations, or dizziness. His right lower extremity is wrapped and is in an immobilizer. His vitals have been stable. Exam (Progress Note) - Constitutional Vitals: Period Temp Pulse Resp BP Sys/Go Pulse Ox Last 24 Hr 97.3 F-99.0 F 69-102 15-20 131-151/70-88 95-98 General appearance: normal weight, no acute distress - Head Head exam: Absent: abrasion, hematoma - Eye Eye exam: Absent: periorbital swelling, laceration to eyelids - Neck Neck exam: Absent: tenderness - Respiratory Respiratory exam: Present: clear to auscultation bilaterally. Absent: accessory muscle use, chest wall tenderness - Cardiovascular Cardiovascular exam: Present: regular rate and rhythm. Absent: rubs - GI/Abdominal GI/Abdominal exam: Present: normal bowel sounds, soft. Absent: distended, tenderness - Extremities Exam Extremities exam: Present: other (Unable to assess right lower extremity because it is wrapped). Absent: edema - Neurological Exam Neurological exam: Present: alert, oriented X3 - Psychiatric Psychiatric exam: Present: normal affect, normal mood - Skin Skin exam: Present: warm, dry Result/EKG - Labs CBC & BMP: 08/29/16 01:33 08/29/16 01:33 Lab Results: I have reviewed the past 24 hour labs - EKG EKG results: interpreted by me EKG shows: sinus rhythm Quality Measures - VTE Contraindication to Mechanical VTE Prophylaxis: Trauma to Legs I, Juan Gordon MD, personally performed the services described in this documentation, ascribed by Patricia Berry RN in my presence, and it is both accurate and complete .
[2016-08-31] MEDS: CLINDAMYCIN INJ 600 MG in PREMIX 1 EACH IV SCH ×4 (01:11→19:04)
[2016-08-31] MEDS: SODIUM CHLORIDE 0.9% 1,000 ML IV SCH ×5 (01:15→21:28)
[2016-08-31 04:16] LABS: Basophils % 0.3 % (0.0-0.8); Eosinophils # 0.2 10*3/uL (0.0-0.87); Eosinophils % 1.4 % (0.00-10.9); Hematocrit 33.1 VOL% (42.0-52.0); Hemoglobin 10.6 GM/DL (14.0-18.0); Immature Granulocytes % 0.6 %; Immature Granulocytes Absolute 0.08 #; Lymphocytes # 3.3 10*3/uL (1.4-4.0); Lymphocytes % 26.7 % (21.2-54.2); Mean Corpuscular Hemoglobin 30 PG (27-34); Mean Corpuscular Volume 93.8 FL (87-102); Monocytes # 1.2 10*3/uL (0.11-0.8); Monocytes % 9.4 % (1.7-12.7); Neutrophils # 7.6 10*3/uL (1.4-7.4); Neutrophils % 61.6 % (38.7-73.9); Platelet Count 296 T/CUMM (130-400); Red Blood Count 3.53 MC/CUMM (3.8-5.5); Red Cell Distribution Width 15.4 % (9.3-17.3); White Blood Count 12.4 T/CUMM (4-12)
[2016-08-31 04:46] LABS: Calcium 8.1 MG/DL (8.5-10.1); Osmolality,Calculated 280.4 MOS/KG (273-304); Potassium 4.4 MMOL/L (3.5-5.1)
--- NOTE | 2016-08-31 08:04 | Orthopedic Progress Note ---
Orthopedics - Subjective Interval history: Aamir Spear has a bicondylar tibial plateau fracture with a split depressed component of his lateral plateau. He is currently undergoing wound care for fracture blisters. He has been able to get around the room on a walker. The patient would like to be discharged home while waiting for his blisters to resolve. Exam shows his right lower extremity is dressed. He can flex and extend his toes without much pain. Impression: Right bicondylar tibial plateau fracture with fracture blisters Plan: Continue local wound care. The patient can be discharged home at any time from an orthopedic standpoint. He will require follow-up next week with Dr. Wilbert Chacon to reassess his soft tissue envelope prior to surgical fixation of his fracture. Exam - Constitutional Vitals: Period Temp Pulse Resp BP Sys/Go Pulse Ox Last 24 Hr 96.8 F-98.6 F 66-77 16-19 131-149/69-74 93-97 Results - Labs CBC & BMP: 08/31/16 04:05 08/31/16 04:05 Quality Measures - VTE Contraindication to Mechanical VTE Prophylaxis: Trauma to Legs
[2016-08-31] MEDS: BACLOFEN 10 MG TABLET PO SCH ×2 (08:33→15:29)
[2016-08-31] MEDS: PANTOPRAZOLE 40 MG TABLET PO SCH (08:33)
[2016-08-31] MEDS: GABAPENTIN 600 MG TABLET PO SCH ×2 (08:33→15:29)
[2016-08-31] MEDS: buPROPion 75 MG TABLET PO SCH (08:34)
[2016-08-31] MEDS: TAMSULOSIN 0.4 MG CAPSULE PO SCH (08:34)
[2016-08-31] MEDS: DILTIAZEM CD 240 MG CAPSULE PO SCH (08:35)
[2016-08-31] MEDS: METOPROLOL TARTRATE 25 MG TABLET PO SCH (09:14)
--- NOTE | 2016-08-31 09:14 | Hospitalist Progress Note ---
Assessment and Plan (1) CAD (coronary artery disease) Status: Acute Assessment and plan: As noted by cardiology, the patient underwent a stress nuclear test on 08/09/16 demonstrating evidence of inferior ischemia. He had been scheduled to undergo cardiac catheterization on 08/31/16. He is presently stable with no chest pain or shortness of breath. Current Visit: Yes Qualifiers: Coronary Disease-Associated Artery/Lesion type: [place] artery [place] vs. transplanted heart: [place] heart Associated angina: without angina Qualified Code(s): I25.10 - Atherosclerotic heart disease of [place] coronary artery without angina pectoris (2) Carotid artery disease Status: Acute Assessment and plan: As also noted by cardiology, carotid ultrasound has demonstrated him to have an obstruction of 80-99% of the proximal left internal carotid artery. He is asymptomatic at this time with no neurologic complaints. Current Visit: Yes (3) Blisters of multiple sites Status: Acute Assessment and plan: He has multiple blisters of his right lower extremity, in the area covered by the previous cast, with no evidence of active infection. He has been seen in consultation by the wound care nurse for management. Current Visit: Yes (4) History of AAA (abdominal aortic aneurysm) repair Status: Chronic Assessment and plan: Stable. No intervention planned at this time. He has been seen in follow-up by vascular surgery. Current Visit: No (5) Tibial plateau fracture, right Status: Acute Assessment and plan: He has been seen in consultation by orthopedic surgery. They will defer surgery until resolution of the blisters of his right lower extremity. He will be treated with the requested dose of [place] for pain control. Current Visit: Yes (6) Hypertension Status: Chronic Assessment and plan: His blood pressure today is 131/69. He is being treated with diltiazem for his hypertension. Current Visit: Yes (7) History of atrial fibrillation Status: Chronic Assessment and plan: His heart rate is 73/min. He will continue on diltiazem. Current Visit: Yes Hospitalist: Subjective Interval history: Mr. Spear states that he is doing well today. The blisters on his right leg are improving. He is not experiencing leg pain, chest pain, or shortness of breath. Orthopedic surgery has given their consent for discharge with further outpatient management. He is yet to be seen today by cardiology. I will defer to their recommendation about the timing of the planned cardiac catheterization. In the meantime, he continues on local therapy for the blisters of his right leg. Exam - Constitutional Vitals: Period Temp Pulse Resp BP Sys/Go Pulse Ox Last 24 Hr 96.8 F-98.6 F 66-77 16-19 131-149/69-74 93-97 General appearance: no acute distress - Head Head exam: Present: normal inspection, normocephalic - Eye Eye exam: Present: EOMI Pupils: Present: ROSENDO - Neck Neck exam: Present: normal inspection - Respiratory Respiratory exam: Present: clear to auscultation bilaterally - Cardiovascular Cardiovascular exam: Present: regular rate and rhythm - GI/Abdominal GI/Abdominal exam: Present: normal bowel sounds, soft, other (Nontender with no palpable masses or hepatosplenomegaly.) - Extremities Exam Extremities exam: Present: other (Improving blisters of right leg with no evidence of active infection.) - Back Exam Back exam: Present: normal inspection - Neurological Exam Neurological exam: Present: alert, oriented X3 - Psychiatric Psychiatric exam: Present: normal affect, normal mood - Skin Skin exam: Present: normal color, warm, dry Results - Labs CBC & BMP: 08/31/16 04:05 08/31/16 04:05 Quality Measures - VTE Contraindication to Mechanical VTE Prophylaxis: Trauma to Legs
--- NOTE | 2016-08-31 12:32 | Event Note ---
Mr. Spear is doing well but we have no immediate need for continued hospitalization. He will be discharged home and we are going to ask home health to help him with the care of the blisters on his right lower leg. He will see Dr. Wilbert Watkins next week and we will decide on whether or not internal fixation is needed and then if not when carotid endarterectomy can be performed. We are also waiting for him to be cleared from a cardiac standpoint with cardiac catheterization.
--- NOTE | 2016-08-31 15:25 | Discharge Summary ---
Hospital Course - Hospital Course Hospital Course: Mr. Spear is a 65-year-old white male with a history of peripheral vascular disease, coronary artery disease, carotid artery disease, essential hypertension , paroxysmal atrial fibrillation, and abdominal aortic aneurysm status post endograft. He sustained a complex right tibial plateau fracture on 08/27/16 for which he was treated at [facility]. He had a cast placed at that time he subsequently noticed severe swelling of his right foot for which reason he came to the hospital. The cast was removed here demonstrating multiple blisters of his right leg. There was no evidence of an active infection. He has a previous history of coronary artery disease. He most recently underwent an outpatient stress nuclear test on 08/09/16 demonstrating evidence of inferior ischemia. He underwent a carotid duplex Doppler exam demonstrating a severe obstruction of his left internal carotid artery. He has not been experiencing chest pain, shortness of breath, or any neurologic symptoms. He has been tentatively scheduled to undergo cardiac catheterization on 08/31/16. He was seen in the hospital in consultation by Dr. Carr of cardiology, Dr. Sagastume of orthopedic surgery, and Dr. العراقي of vascular surgery. He underwent wound care management of the blisters on his right lower extremity which appear to significantly improve during his hospitalization. After consultation with the 3 above consultants, the decision was made to discharge Mr. Spear with outpatient follow-up with cardiology, orthopedic surgery, and vascular surgery. At the time of his discharge Mr. Spear was stable with no complaints. Diagnosis - Discharge Diagnosis (1) CAD (coronary artery disease) Status: Chronic (2) Carotid artery disease Status: Chronic (3) Blisters of multiple sites Status: Acute (4) History of AAA (abdominal aortic aneurysm) repair Status: Chronic (5) Tibial plateau fracture, right Status: Acute (6) Hypertension Status: Chronic (7) History of atrial fibrillation Status: Chronic Specialty Discharge - Follow Up or Referrals Follow up with: Russell Atkins Jr., MD [Physician] - 09/08/16 1:20 pm Ramon العراقي MD [Physician] - 09/12/16 1:30 pm Aamir Carr MD [Physician] - 2 Weeks (With EKG) Discharge Plan - Discharge Data Condition at Discharge: Stable Discharge Diet: advance to your usual diet Activity: as per physical therapy - Discharge Medications Continue Baclofen Tab [Lioresal] 10 mg PO TID HYDROcodone/ACETAMIN 10-325 [[place] 10-325] 1 tablet PO Q4H Gabapentin Cap/Tab [Neurontin Cap/Tab] 600 mg PO TID Rosuvastatin Calcium 20 mg PO BEDTIME Tamsulosin [Flomax] 0.4 mg PO QAM Diltiazem Cd Cap [Cardizem CD] 240 mg PO QAM - Follow Up or Referral Follow Up: Russell Atkins Jr., MD [Physician] - 09/08/16 1:20 pm Ramon العراقي MD [Physician] - 09/12/16 1:30 pm Aamir Carr MD [Physician] - 2 Weeks (With EKG) - Forms/Instructions Exam - Constitutional Vitals: Period Temp Pulse Resp BP Sys/Go Pulse Ox Last 24 Hr 96.8 F-98.6 F 66-77 16-19 131-149/69-74 93-97 General appearance: no acute distress - Head Head exam: Present: normal inspection, normocephalic - Eye Eye exam: Present: EOMI Pupils: Present: ROSENDO - Neck Neck exam: Present: normal inspection - Respiratory Respiratory exam: Present: clear to auscultation bilaterally - Cardiovascular Cardiovascular exam: Present: regular rate and rhythm - GI/Abdominal GI/Abdominal exam: Present: normal bowel sounds, soft - Extremities Exam Extremities exam: Present: other (Blisters of right lower extremity with no evidence of active infection.) - Back Exam Back exam: Present: normal inspection - Neurological Exam Neurological exam: Present: alert, oriented X3 - Psychiatric Psychiatric exam: Present: normal affect, normal mood - Skin Skin exam: Present: normal color, warm, dry Discharge Results Labs on day of discharge: Labs from last 24 hours 08/31/16 08/31/16 04:05 04:05 WBC 12.4 H RBC 3.53 L Hgb 10.6 L Hct 33.1 L MCV 93.8 MCH 30 MCHC 32.0 RDW 15.4 Plt Count 296 MPV 9.0 L Neut % (Auto) 61.6 Lymph % (Auto) 26.7 [place] % (Auto) 9.4 Eos % (Auto) 1.4 Baso % (Auto) 0.3 Neut # (Auto) 7.6 H Lymph # (Auto) 3.3 [place] # (Auto) 1.2 H Eos # (Auto) 0.2 Baso # (Auto) 0.0 Immature Gran % 0.6 Nucleated RBC % 0.0 Immature Gran # 0.08 Nucleated RBCs # 0.00 Sodium 140 Potassium 4.4 Chloride 108 H Carbon Dioxide 23 Anion Gap 13.4 BUN 17 Creatinine 0.80 GFR Calculation 118 BUN/Creatinine Ratio 21.00 H Glucose 97 Calculated Osmolality 280.4 Calcium 8.1 L DS: Provider Date of admission: 08/28/16 17:30 Primary care physician: . No PCP Attending physician on admission: Marshall Hsieh Consults: 08/28/16 18:45 Consult to Physician [CONS] Routine Comment: pt of plavac. for PCI on mon Consulting Provider: Cardiology - [facility] Consulting Provider Notified: Yes When should Consulting Provider be notified: In am Person Notified: sammie called Date Notified: 08/29/16 Time Notified: 08:09 Consult to Physician [CONS] Routine Comment: pt of yours Consulting Provider: Ramon العراقي Consulting Provider Notified: Yes When should Consulting Provider be notified: In am Person Notified: esmer called Date Notified: 08/29/16 Time Notified: 08:42 Consult to Physician [CONS] Routine Comment: tibial plateau fx Consulting Provider: Russell Atkins Jr. Consulting Provider Notified: Yes When should Consulting Provider be notified: In am Person Notified: rhonda called Date Notified: 08/29/16 Time Notified: 08:04 08/28/16 18:49 Consult to Physical Therapy [CONS] Routine Reason for Physical Therapy: Evaluate and Treat 08/28/16 18:50 Consult to Wound Care - [place] [CONS] Routine Reason for Wound Care: Wound Care Management Consult Comment: aspirate blisters and paint w betadine and wrap 08/29/16 01:26 Consult to Pastoral Services [CONS] Routine Comment: Pastoral Screen: Request Belt Loop Cutter Visit Pastoral Screen Source of Request: Patient 08/31/16 10:49 Consult to Physical Therapy [CONS] Routine Reason for Physical Therapy: Other Consult Comment: Standard Walker was delivered to the patient's room today for D/C 08/31/16 10:50 Consult to Case Mgmt/Social Srvs [CONS] Routine Reason for Case Mgmt/Social Srvs: Equipment Consult Comment: Del Wheelchair w/Rt Leg Extention to room 329 today; Pt 6ft 7in 179lbs Discharging clinician: Marshall Hsieh Expected date of discharge: 08/31/16
--- NOTE | 2016-08-31 15:38 | Cardiology Progress Note ---
I, Patricia Berry RN, am scribing for, and in the presence of, Radha Dangelo NP 15:35. Assessment and Plan (1) Hypertension Status: Chronic Assessment and plan: Initial assessment and plan 08/29/2016: plan/recommendation: Probably allow the blisters to resolve before doing any other intervention If Dr. Braeden Atkins says the plateau fracture has to be fixed soon or there will be major problems, then it would trump other options. Otherwise if it can wait, I would allow his blister to heal, then doing a heart cath, then do the plateau fracture surgery--in this order. The above was discussed with the patient. He agrees with the plan. I called Dr. Braeden Atkins to talk with him, But could not get him. I will try to talk with him tomorrow I discussed with the patient the benefits of stopping tobacco/nicotine, the problems with continuing to use it, and options of treatment. The patient is considering this option. We will be sure he is on a beta-yeimi, aspirin, etc. so we will be well treated medically for CAD. He wants to quit smoking but says he cannot. He craves cigarettes very much. He is requesting help with quitting smoking. He craves his cigarettes very much. Will give a trial of bupropion 75 mg p.o. twice daily. I discussed the situation with Dr. carr, his primary test and balance engineer. He agrees with our thoughts and the plans. Assessment and plan 08/30/2016: The tibial plateau ORIF is being deferred for now. Since he is not having active angina, I will also defer the cath until his blisters on his legs are healed without infection. To do a cath, place a stent artery bypass and then have an active infection in his leg would be a difficult situation, it might even seed the stents with infection which would be a serious problem.. Thus, he is not pushing us to do a cath with chest pain or angina, so we will delay. Thus, from my standpoint he may be discharged home when you say so. Dr. waggoner will see him back in 2-4 weeks and see how his blisters are doing. Once they were healed he will do his heart cath. After that time, he can undergo the ORIF of his right tibial plateau fracture. Assessment and plan 08/31/2016: Current Visit: Yes (2) Carotid artery bruit Status: Chronic Current Visit: Yes (3) History of atrial fibrillation Status: Chronic Current Visit: Yes (4) Tibial plateau fracture, right Status: Acute Current Visit: Yes (5) History of AAA (abdominal aortic aneurysm) repair Status: Chronic Current Visit: No Cardiology - PN: Subj Interval history: Deputy Court Clerk: Dr. Carr Mr. Adam is seen resting in bed in no acute distress. He denies chest pain, shortness of breath, palpitations, or dizziness. His right lower extremity is wrapped and is in an immobilizer. He is hoping to go home today. We will schedule him an appointment as a Dr. Carr in 2 weeks to discuss when to pursue heart catheterization. Assessment and Plan (1) Hypertension Status: Chronic Assessment and plan: Initial assessment and plan 08/29/2016: plan/recommendation: Probably allow the blisters to resolve before doing any other intervention If Dr. Braeden Atkins says the plateau fracture has to be fixed soon or there will be major problems, then it would trump other options. Otherwise if it can wait, I would allow his blister to heal, then doing a heart cath, then do the plateau fracture surgery--in this order. The above was discussed with the patient. He agrees with the plan. I called Dr. Braeden Atkins to talk with him, But could not get him. I will try to talk with him tomorrow I discussed with the patient the benefits of stopping tobacco/nicotine, the problems with continuing to use it, and options of treatment. The patient is considering this option. We will be sure he is on a beta-yeimi, aspirin, etc. so we will be well treated medically for CAD. He wants to quit smoking but says he cannot. He craves cigarettes very much. He is requesting help with quitting smoking. He craves his cigarettes very much. Will give a trial of bupropion 75 mg p.o. twice daily. I discussed the situation with Dr. carr, his primary test and balance engineer. He agrees with our thoughts and the plans. Assessment and plan 08/30/2016: The tibial plateau ORIF is being deferred for now. Since he is not having active angina, I will also defer the cath until his blisters on his legs are healed without infection. To do a cath, place a stent artery bypass and then have an active infection in his leg would be a difficult situation, it might even seed the stents with infection which would be a serious problem.. Thus, he is not pushing us to do a cath with chest pain or angina, so we will delay. Thus, from my standpoint he may be discharged home when you say so. Dr. waggoner will see him back in 2-4 weeks and see how his blisters are doing. Once they were healed he will do his heart cath. After that time, he can undergo the ORIF of his right tibial plateau fracture. Assessment and plan 08/31/2016: Ready for discharge. Will be given appointment with Dr. Carr in two weeks to discuss when to pursue heart cath. Stable for discharge from cardiology standpoint. Current Visit: Yes (2) Carotid artery bruit Status: Chronic Current Visit: Yes (3) History of atrial fibrillation Status: Chronic Current Visit: Yes (4) Tibial plateau fracture, right Status: Acute Current Visit: Yes (5) History of AAA (abdominal aortic aneurysm) repair Status: Chronic Current Visit: No Cardiology - PN: Subj Interval history: Deputy Court Clerk: Dr. Carr Mr. Adam is seen resting in bed in no acute distress. He denies chest pain, shortness of breath, palpitations, or dizziness. His right lower extremity is wrapped and is in an immobilizer. He is hoping to go home today. We will schedule him an appointment as a Dr. Carr in 2 weeks to discuss when to pursue heart catheterization. Exam (Progress Note) - Constitutional Vitals: Period Temp Pulse Resp BP Sys/Go Pulse Ox Last 24 Hr 96.8 F-98.6 F 66-77 16-19 131-149/69-74 93-97 General appearance: normal weight, no acute distress - Head Head exam: Absent: abrasion, hematoma - Eye Eye exam: Absent: periorbital swelling, laceration to eyelids - Respiratory Respiratory exam: Present: clear to auscultation bilaterally. Absent: accessory muscle use, chest wall tenderness - Cardiovascular Cardiovascular exam: Present: regular rate and rhythm. Absent: rubs - GI/Abdominal GI/Abdominal exam: Present: normal bowel sounds, soft. Absent: distended, tenderness - Extremities Exam Extremities exam: Present: other (Right lower extremity is wrapped and is in an immobilizer). Absent: edema - Neurological Exam Neurological exam: Present: alert, oriented X3 - Psychiatric Psychiatric exam: Present: normal affect, normal mood - Skin Skin exam: Present: warm, dry Result/EKG - Labs CBC & BMP: 08/31/16 04:05 08/31/16 04:05 Lab Results: I have reviewed the past 24 hour labs Labs: Laboratory Results - last 24 hr 08/31/16 08/31/16 04:05 04:05 WBC 12.4 H RBC 3.53 L Hgb 10.6 L Hct 33.1 L MCV 93.8 MCH 30 MCHC 32.0 RDW 15.4 Plt Count 296 MPV 9.0 L Neut % (Auto) 61.6 Lymph % (Auto) 26.7 Crockett % (Auto) 9.4 Eos % (Auto) 1.4 Baso % (Auto) 0.3 Neut # (Auto) 7.6 H Lymph # (Auto) 3.3 [place] # (Auto) 1.2 H Eos # (Auto) 0.2 Baso # (Auto) 0.0 Immature Gran % 0.6 Nucleated RBC % 0.0 Immature Gran # 0.08 Nucleated RBCs # 0.00 Sodium 140 Potassium 4.4 Chloride 108 H Carbon Dioxide 23 Anion Gap 13.4 BUN 17 Creatinine 0.80 GFR Calculation 118 BUN/Creatinine Ratio 21.00 H Glucose 97 Calculated Osmolality 280.4 Calcium 8.1 L Quality Measures - VTE Contraindication to Mechanical VTE Prophylaxis: Trauma to Legs Specialty Discharge - Follow Up or Referrals Follow up with: Russell Atkins Jr., MD [Physician] - 09/08/16 1:20 pm Ramon العراقي MD [Physician] - 09/12/16 1:30 pm Aamir Carr MD [Physician] - 09/14/16 3:10 pm (With EKG) Exam (Progress Note) - Constitutional Vitals: Period Temp Pulse Resp BP Sys/Go Pulse Ox Last 24 Hr 96.8 F-98.6 F 66-77 16-19 131-149/69-74 93-97 General appearance: normal weight, no acute distress - Head Head exam: Absent: abrasion, hematoma - Eye Eye exam: Absent: periorbital swelling, laceration to eyelids - Respiratory Respiratory exam: Present: clear to auscultation bilaterally. Absent: accessory muscle use, chest wall tenderness - Cardiovascular Cardiovascular exam: Present: regular rate and rhythm. Absent: rubs - GI/Abdominal GI/Abdominal exam: Present: normal bowel sounds, soft. Absent: distended, tenderness - Extremities Exam Extremities exam: Present: other (Right lower extremity is wrapped and is in an immobilizer). Absent: edema - Neurological Exam Neurological exam: Present: alert, oriented X3 - Psychiatric Psychiatric exam: Present: normal affect, normal mood - Skin Skin exam: Present: warm, dry Result/EKG - Labs CBC & BMP: 08/31/16 04:05 08/31/16 04:05 Lab Results: I have reviewed the past 24 hour labs Labs: Laboratory Results - last 24 hr 08/31/16 08/31/16 04:05 04:05 WBC 12.4 H RBC 3.53 L Hgb 10.6 L Hct 33.1 L MCV 93.8 MCH 30 MCHC 32.0 RDW 15.4 Plt Count 296 MPV 9.0 L Neut % (Auto) 61.6 Lymph % (Auto) 26.7 [place]ckett % (Auto) 9.4 Eos % (Auto) 1.4 Baso % (Auto) 0.3 Neut # (Auto) 7.6 H Lymph # (Auto) 3.3 [place]ett # (Auto) 1.2 H Eos # (Auto) 0.2 Baso # (Auto) 0.0 Immature Gran % 0.6 Nucleated RBC % 0.0 Immature Gran # 0.08 Nucleated RBCs # 0.00 Sodium 140 Potassium 4.4 Chloride 108 H Carbon Dioxide 23 Anion Gap 13.4 BUN 17 Creatinine 0.80 GFR Calculation 118 BUN/Creatinine Ratio 21.00 H Glucose 97 Calculated Osmolality 280.4 Calcium 8.1 L Quality Measures - VTE Contraindication to Mechanical VTE Prophylaxis: Trauma to Legs Specialty Discharge - Follow Up or Referrals Follow up with: Russell Atkins Jr., MD [Physician] - 09/08/16 1:20 pm Ramon العراقي MD [Physician] - 09/12/16 1:30 pm Aamir Carr MD [Physician] - 09/14/16 3:10 pm (With EKG) Antolin Mclain Bonnie E, INTERNATIONAL CONTROLLER, personally performed the services described in this documentation, ascribed by Patricia Berry RN in my presence, and it is both accurate and complete [id number] .
[2016-08-31 20:03] VITALS: BP 157/80
[2016-08-31] MEDS: ENOXAPARIN 40 MG/0.4 ML SYRINGE SUBCUT SCH (21:27)
== END 2016-08-31 20:35 | disposition home health service (06) | DRG 607 ==
LOC: EDBD → EDUNIT# → N.ED 13:59 → N.EDINP 17:30 → N.3E 17:59

== ENCOUNTER 2016-09-20 04:54 | Inpatient (IN) ==
[2016-09-20] MEDS ORDERED: POTASSIUM CHLORIDE RIDER 10 MEQ in PREMIX 1 EACH IV PRN (06:00)
[2016-09-20] MEDS ORDERED: MAGNESIUM SULF RIDER 2 GM in PREMIX 1 EACH IV PRN (06:00)
[2016-09-20] MEDS ORDERED: ASPIRIN 325 MG TABLET PO ONE (06:00)
[2016-09-20] MEDS ORDERED: diphenhydrAMINE CAP 25 MG CAPSULE PO ONE (06:00)
[2016-09-20] MEDS ORDERED: DIAZEPAM 5 MG TABLET PO ONE (06:00)
[2016-09-20] MEDS ORDERED: HEPARIN/NACL 0.9% 2 UNITS/ML 1,000 ML IV ONE (07:02)
[2016-09-20] MEDS ORDERED: LIDOCAINE 1% 20 ML VIAL ONE (07:02)
[2016-09-20] MEDS ORDERED: diphenhydrAMINE CAP 25 MG CAPSULE ONE (07:13)
[2016-09-20] MEDS ORDERED: ASPIRIN 325 MG TABLET ONE (07:13)
[2016-09-20] MEDS ORDERED: DIAZEPAM 5 MG TABLET ONE (07:13)
[2016-09-20] MEDS: SODIUM CHLORIDE 0.9% 1,000 ML IV SCH ×7 (07:15→18:33)
--- NOTE | 2016-09-20 07:16 | History and Physical Update ---
Sedation H&P Update - History and Physical H&P was reviewed, the patient examined and there: are no changes in the patients condition since last H&P was completed. - Dictation Physical: refer to scanned H&P, refer to H&P completed by admitting physician - Physical Exam Mental Status: alert and oriented Heart: regular rate and rhythm Lung: clear to auscultation Abdomen: within normal limits Vitals: within normal limits - Sedation Plan for Sedation: moderate Patient Consent: Procedure disscussed with patient and patinet has consented., Risks and benefits were discussed with patient,including infection,, bleeding, injury to surrounding structures, seizure, temporary nerve, Patient understands and accepts potential risks/benefits and agrees to, proceed. ASA Class: II Airway Assessment: Class II: Soft palate, uvula, fauces visible
[2016-09-20] MEDS ORDERED: HYDROmorphone 2 MG/1 ML VIAL ONE (07:23)
[2016-09-20] MEDS ORDERED: MIDAZOLAM 2 MG/2 ML VIAL ONE ×2 (07:24→14:55)
[2016-09-20] MEDS ORDERED: BIVALIRUDIN 250 MG VIAL IV ONE (07:48)
[2016-09-20] MEDS ORDERED: BIVALIRUDIN 250 MG in SODIUM CHLORIDE 0.9% 50 ML IV SCH (08:00)
[2016-09-20] MEDS ORDERED: PRASUGREL 10 MG TABLET ONE (08:06)
--- NOTE | 2016-09-20 08:26 | Cardiology Operative Report ---
Date of Procedure:: 09/20/16 Pre-op diagnosis: CAD chest pain Post-op diagnosis: same Procedure: Cardiac catheterization procedure note #1 left heart catheterization #2 selective coronary angiography #3 left ventriculography #4 successful proximal circumflex stent Omnipaque was used for the procedure Description of procedure Following sterile preparation draping of the left groin, local anesthesia was achieved by infiltration with 1% Xylocaine. Using a Cook needle the left femoral artery was cannulated and a 6 Georgian sheath was inserted. A 6 Georgian pigtail catheter was induced and advanced retrograde across aortic valve into the left ventricle and the end-diastolic pressure was recorded. Left ventriculography was performed in the DAVID projection using 24 cc of contrast. A pullback recording made across aortic valve. The pigtail catheter change for a 6 Georgian left Adwoa catheter and left coronary angiography was performed in several DAVID and WOLOF projections. The catheter change for a 6 Georgian right Amplatz catheter and right coronary angiography was performed in the WOLOF projection only. Cath exchanged for a 6 Georgian JL 5 guiding catheter in the left main was recannulated. A production proofreader film was obtained. The patient was bolused with Angiomax and placed on infusion per protocol. A pro-water flex wire was used to cross the lesion and placed into the distal vessel. Direct stenting was performed using a 3.0 x 12 minute Alpine Zions drug eluting stent. Several flush injection confirmed good positioning of the stent. The maximum inflation pressure was 14 britney for 30 seconds, creating a 3.20 mm lumen. The balloon was brought back to the guiding catheter along the guidewire across the lesion. Repeat angiograms demonstrated a widely patent vessel with brisk runoff no dissection and mild residual narrowing. The guiding catheter and sheath were removed and the femoral arteriotomy site was sealed percutaneously minx closure device with prompt cessation of bleeding and prompt return of the femoral and foot pulses. No complications ensued. The patient was transported to telemetry in stable condition. Hemodynamic data Aortic pressure 171/83 mean 123 Left ventricle 171/8 Selective coronary angiography The left main trunk is patent and bifurcates. The LAD is a large vessel wraps around the apex. There is a 40% mid vessel stenosis. The diagonal branch has mild disease. There is an 80% stenosis of proximal circumflex. The dominant coronary artery is occluded in its mid segment. Left to right collaterals filling distal branches in a retrograde manner. Left ventriculography The basal mid segment inferior wall are akinetic. Ejection fraction 45%. No mitral regurgitation. Conclusions #1 LVEDP 8 #2 ejection fraction 45% with basal mid inferior akinesis #3 no mitral regurgitation #4 no aortic valve gradient #5 left main trunk-patent #6 LAD-40% mid vessel #7 diagonal branch-patent #8 proximal circumflex-80% stenosis #9 dominant right coronary-100% mid occlusion with [id number] collaterals filling the distal branches #10 successful proximal circumflex stent. An 80% stenosis was reduced to mild irregularities with a 3.0 x 15 mm Alpine Zions drug-coated stent. The maximum inflation pressure was 14 britney for 30 seconds, creating a 3.20 mm lumen. Good result obtained. Disposition The patient has severe bilateral carotid artery stenosis. Preop nuclear stress test demonstrated mixed inferolateral scar and ischemia. The right coronary is occluded in its mid segment and has left to right collaterals. The proximal circumflex underwent stenting with a 3.0 x 15 mm Alpine Zions drug-coated stent , postdilated 3.20 mm lumen. Good result obtained. Ejection fraction 45% with basal mid inferior akinesis. He remain on normal saline hydration continue aspirin Effient and statin therapy. A BMP and CPK troponin rechecked in the morning. Cine pictures were reviewed with his son-in-law Lane. Implants: Successful proximal circumflex stent 3.0 x 12 mm Alpine Zions drug-coated stent , postdilated 3.20 mm lumen. Good result obtained. Surgeon / Physician: Aamir Carr Estimated blood loss: minimal Specimens: none sent Condition: stable Disposition: floor
[2016-09-20] MEDS ORDERED: ACETAMINOPHEN 325 MG TABLET PO PRN (08:27)
[2016-09-20] MEDS ORDERED: ONDANSETRON 4 MG/2 ML VIAL IV PRN (08:27)
[2016-09-20] MEDS ORDERED: BACLOFEN 10 MG TABLET PO PRN (08:30)
[2016-09-20] MEDS: GABAPENTIN 600 MG TABLET PO SCH ×3 (09:23→20:47)
[2016-09-20] MEDS: TAMSULOSIN 0.4 MG CAPSULE PO SCH (09:24)
[2016-09-20] MEDS: ASPIRIN EC 81 MG TABLET PO SCH (09:24)
[2016-09-20] MEDS: DILTIAZEM CD 240 MG CAPSULE PO SCH (09:24)
--- NOTE | 2016-09-20 10:50 | EKG Report ---
Stationary ECG Study [facility] Test Date: 09/20/2016 6:54:04 AM Pat Name: AAMIR GREER Department: Room: 287 Gender: M Refractory Technician: : 1950 Requested by: Aamir Carr Order Number: [id number] Reading MD: AAMIR CARR Intervals [place] Rate: 78 P: 82 VA: 151 QRS: 74 QRSD: 91 T: 42 QT: 373 QTc: 406 Interpretive Statements SINUS RHYTHM Electronically Signed On 09-20-16 18:24:36 CDT by AAMIR CARR [email or web address]
[2016-09-20 11:22] LABS: Basophils # 0.1 10*3/uL (0.0-0.2); Basophils % 0.4 % (0.0-0.8); Eosinophils # 0.3 10*3/uL (0.0-0.87); Eosinophils % 1.7 % (0.00-10.9); Hematocrit 27.6 VOL% (42.0-52.0); Hemoglobin 8.9 GM/DL (14.0-18.0); Immature Granulocytes % 1.6 %; Immature Granulocytes Absolute 0.23 #; Lymphocytes # 2.6 10*3/uL (1.4-4.0); Lymphocytes % 17.6 % (21.2-54.2); Mean Corpuscular HGB Conc 32.2 GM/DL (32-36); Mean Corpuscular Hemoglobin 31 PG (27-34); Mean Corpuscular Volume 96.5 FL (87-102); Mean Platelet Volume 8.8 FL (9.6-12.0); Monocytes # 1.2 10*3/uL (0.11-0.8); Monocytes % 8.1 % (1.7-12.7); Neutrophils # 10.3 10*3/uL (1.4-7.4); Neutrophils % 70.6 % (38.7-73.9); Platelet Count 506 T/CUMM (130-400); Red Blood Count 2.86 MC/CUMM (3.8-5.5); Red Cell Distribution Width 16.3 % (9.3-17.3); White Blood Count 14.6 T/CUMM (4-12)
[2016-09-20] MEDS ORDERED: DOPamine 800 MG/250 ML PREMIX IV SCH (12:00)
[2016-09-20] MEDS ORDERED: DOPamine 800 MG/250 ML PREMIX IV ONE (12:02)
[2016-09-20] MEDS ORDERED: NOREPINEPHRINE 4 MG/4 ML VIAL IV ONE ×2 (12:04→18:38)
[2016-09-20] MEDS: NOREPINEPHRINE 8 MG in SODIUM CHLORIDE 0.9% 242 ML IV SCH ×2 (12:05→23:15)
[2016-09-20] MEDS ORDERED: NOREPINEPHRINE 16 MG in SODIUM CHLORIDE 0.9% 234 ML IV SCH (12:05)
[2016-09-20 12:15] LABS: Basophils # 0.1 10*3/uL (0.0-0.2); Basophils % 0.3 % (0.0-0.8); Eosinophils # 0.2 10*3/uL (0.0-0.87); Eosinophils % 1.1 % (0.00-10.9); Hematocrit 23.5 VOL% (42.0-52.0); Hemoglobin 7.3 GM/DL (14.0-18.0); Immature Granulocytes % 4.8 %; Immature Granulocytes Absolute 1.03 #; Lymphocytes # 4.1 10*3/uL (1.4-4.0); Lymphocytes % 19.2 % (21.2-54.2); Mean Corpuscular HGB Conc 31.1 GM/DL (32-36); Mean Corpuscular Hemoglobin 31 PG (27-34); Mean Platelet Volume 8.8 FL (9.6-12.0); Monocytes # 1.5 10*3/uL (0.11-0.8); Neutrophils # 14.4 10*3/uL (1.4-7.4); Neutrophils % 67.6 % (38.7-73.9); Platelet Count 529 T/CUMM (130-400); Red Blood Count 2.35 MC/CUMM (3.8-5.5); Red Cell Distribution Width 16.6 % (9.3-17.3); White Blood Count 21.3 T/CUMM (4-12)
--- NOTE | 2016-09-20 12:19 | EKG Report ---
Stationary ECG Study [facility] Test Date: 09/20/2016 12:18:37 PM Pat Name: AAMIR GREER Department: Room: 126 Gender: M Header Dock: HAROLDO : 1950 Requested by: Aamir Carr Order Number: [id number] Reading MD: AAMIR CARR Intervals [place] Rate: 105 P: 96 [place]: 139 QRS: 87 QRSD: 80 T: 95 QT: 329 QTc: 390 Interpretive Statements SINUS TACHYCARDIA Electronically Signed On 09-20-16 18:33:47 CDT by AAMIR CARR [email or web address]
--- NOTE | 2016-09-20 12:19 | CT Report ---
Referring physician: Aamir Carr EXAM: CT abdomen and pelvis without contrast DATE: 09/20/2016 COMPARISON: 08/28/2016 REASON: Status post heart catheterization with back pain TECHNIQUE: Axial images of the abdomen and pelvis were obtained without the use of contrast. Scans were obtained following heart catheterization. Coronal and sagittal reformatted images were also provided. Total DLP is 403.00 mGy*cm. FINDINGS: Evidence of bullous emphysema with chronic scarring/atelectasis at the visualized lung bases. Coronary artery calcifications. Calcified granulomata in the liver and nonenlarged spleen. Contrast in the gallbladder. The pancreas and adrenal glands are stable in appearance. Contrast in the urinary tract with anterior medial displacement of the left kidney. Marked displacement of the urinary bladder to the right anterior pelvis location. Recent heart catheterization with left femoral hematoma and extensive retroperitoneal hematoma with associated free fluid. The finding extends over 311 mm in length. Previously noted infrarenal abdominal aortic aneurysm treated with endovascular stent. Limited evaluation of this finding without contrast. The [place]kiak aortic sac measures 82 mm on both exams. No significant dilatation of the small bowel. Limited evaluation of bowel without oral contrast. There is displacement of the bowel by the large retroperitoneal hematoma. Calcifications are noted in the prostate. The tip of the Acosta catheter projects in the urethra. Degenerative changes are noted. IMPRESSION: Recent heart catheterization via left femoral route with hematoma in the left femoral location with extensive retroperitoneal hemorrhage. There is associated free fluid/blood in the abdomen and pelvis. There is displacement of the left kidney and urinary bladder with the Acosta catheter pulled back into the urethra. Stable large infrarenal abdominal aortic aneurysm treated with endovascular stent. The akiak aneurysm sac still measures 82 mm. These findings were discussed with at 11:55 AM on 09/20/2016. Critical test results The CT exam was performed using one or more of the following dose reduction techniques: Automated exposure control and adjustment of the mA and/or kV according to patient size. PROCEDURE INTERPRETED AT [facility] DEPARTMENT OF RADIOLOGY Final Report Signed by: Dr. Ela Gomez
[2016-09-20] MEDS ORDERED: VANCOMYCIN INJ 500 MG in SODIUM CHLORIDE 0.9% 100 ML IV STA (12:32)
[2016-09-20 12:45] LABS: Eosinophils 1 % (0-10); Lymphocytes 31 % (20-55); Ovalocytes 1+; Platelet Estimate Increased; Poikilocytosis 1+; Segmented Neutrophils 62 % (50-85); Target Cells Few; Total Cells Counted 100
[2016-09-20] MEDS ORDERED: HEPARIN 5,000 UNIT/1 ML VIAL ONE (12:49)
[2016-09-20] MEDS ORDERED: VANCOMYCIN 1,000 MG VIAL ONE (12:50)
[2016-09-20] MEDS ORDERED: ETOMIDATE 20 MG/10 ML VIAL IV ONE (13:00)
[2016-09-20] MEDS ORDERED: LIDOCAINE 2% TOP JELLY 5 ML TUBE TOP ONE (13:00)
[2016-09-20] MEDS ORDERED: ROCURONIUM 100 MG/10 ML VIAL IV ONE (13:00)
[2016-09-20 13:48] LABS: ABG Base Excess -16.1 MMOL/L (-2.5-2.5); ABG HCO3 12.3 MMOL/L (20-26); ABG Oxygen Saturation 99.6 % (95-100); ABG PCO2 41.5 MM HG (35-48); ABG TCO2 12.4 MMOL/L (23-27); Glucose Heart Surgery 257 MG/DL (74-106); Hematocrit Heart Surgery 32.7 PERCENT (42-52); Hemoglobin Heart Surgery 10.6 G/DL (14.0-18.0); Potassium Heart/CVR 3.7 MMOL/L (3.5-5.1)
[2016-09-20 13:52] LABS: ABG PH 7.107 (7.35-7.45)
[2016-09-20] MEDS ORDERED: ALBUTEROL 2.5 MG/3 ML NEB RESP TX PRN (13:54)
--- NOTE | 2016-09-20 14:02 | Operative Note ---
Date of procedure: 09/20/16 Procedure: Dr. العراقي operative report Aamir Spear. Surgeon: Dulce Maria Anesthesia: Iliev in general endotracheal Preoperative diagnosis: Large left retroperitoneal hematoma secondary to bleeding left external iliac artery. Postoperative diagnosis: Same Procedure: Exploration and repair of the left external iliac artery evacuation of retroperitoneal hematoma. Indications for the procedure: Mr. Spear is 66-year-old man underwent cardiac catheterization earlier today and has developed a large retroperitoneal hematoma with evidence of active bleeding. Patient is hypotensive tachycardic somewhat in shock I have recommended exploration immediately explained the procedure and indications to him he understands and accepts Description of the procedure: After the induction of general endotracheal anesthesia the patient's abdomen and left groin and thigh are prepped with ChloraPrep and Ioban draped in usual fashion but somewhat horizontal incision just above the inguinal ligament based on the side of the catheterization site this was carried into the subcutaneous tissues and into the femoral canal continuing to follow the hematoma and active arterial bleeding was able to work away under the inguinal ligament and controlled external iliac artery with a maxi vessel loop noted active bleeding was just under the inguinal ligament I was able to control the common femoral to distal noted that there was what appeared to be a minx type device in place but there was an active tear of bleeding just medial and inferior. Controlled bleeding with 502 5-0 Prolene sutures giving good repair and active pulse in the distal common femoral artery I did note plaquing in the posterior aspect of the external iliac and common femoral I do not believe there was however a intimal flap. I was able to use a Doppler and get good flows down into the common femoral artery. Hemostasis was reasonable as I attempted to evacuate hematoma got a modest amount out but this is diffuse retroperitoneal hematoma and not a localized segment that could be lack eat adequately evacuated I irrigated with sterile water and then placed a 10 OZ drain this was brought out inferior to the incision lines placed Surgicel over the artery I closed the incision with 2-0 Monocryl and 4-0 Monocryl glue blood loss active blood losses of 100 cc sponge needle and his counts are correct the patient taken to recovery in stable condition Surgeon / Physician: Ramon العراقي Results - Labs CBC & BMP: 09/20/16 12:06 Discharge Plan - Discharge Medications No Action Baclofen Tab [Lioresal] 10 mg PO TID PRN PRN Reason: muscle relaxant HYDROcodone/ACETAMIN 10-325 [[place] 10-325] 1 tablet PO Q4H Gabapentin Cap/Tab [Neurontin Cap/Tab] 600 mg PO TID Rosuvastatin Calcium 20 mg PO BEDTIME Tamsulosin [Flomax] 0.4 mg PO QAM Diltiazem Cd Cap [Cardizem CD] 240 mg PO QAM Aspirin EC Tab 81 mg PO DAILY - Follow Up or Referral - Forms/Instructions Instructions: Left Heart Catheterization (DC), How to Stop Smoking (GEN), Heart Healthy Diet (GEN), Cigarette Smoking and Your Health (GEN), Coronary Intravascular Stent Placement, Stoneworker (GEN)
[2016-09-20 14:13] LABS: Apearance,Urine CLEAR (Clear); Bilirubin,Urine Negative (Negative); Blood, Urine Small mg/dL (Negative); Glucose,Urine (UA) Negative (Negative); Ketones,Urine Negative (Negative); Mucus,Urine Occasional /LPF (Occasional); Nitrite,Urine Negative (Negative); Protein,Urine 30 MG/DL; RBC,Urine 11 /HPF (0-4); Urine Color Yellow (Yellow); Urine Specific Gravity 1.029 (1.001-1.035); Urine Urobilinogen < 2.0 EU/DL (0.2-1.0); WBC,Urine 2 /HPF (0-6)
[2016-09-20] MEDS: PROPOFOL 1,000 MG/100 ML BOTTLE IV SCH (14:20)
[2016-09-20] MEDS ORDERED: fentaNYL 100 MCG/2 ML VIAL ONE (14:56)
[2016-09-20] MEDS ORDERED: KETAMINE 500 MG/10 ML VIAL ONE (14:56)
[2016-09-20 15:22] LABS: Basophils # 0.1 10*3/uL (0.0-0.2); Basophils % 0.4 % (0.0-0.8); Eosinophils # 0.1 10*3/uL (0.0-0.87); Eosinophils % 0.3 % (0.00-10.9); Hematocrit 36.1 VOL% (42.0-52.0); Hemoglobin 11.9 GM/DL (14.0-18.0); Immature Granulocytes % 7.3 %; Lymphocytes # 2.4 10*3/uL (1.4-4.0); Lymphocytes % 6.4 % (21.2-54.2); Mean Corpuscular Hemoglobin 31 PG (27-34); Mean Corpuscular Volume 94.3 FL (87-102); Mean Platelet Volume 8.6 FL (9.6-12.0); Monocytes # 2.9 10*3/uL (0.11-0.8); Monocytes % 7.7 % (1.7-12.7); Neutrophils # 28.7 10*3/uL (1.4-7.4); Neutrophils % 77.9 % (38.7-73.9); Platelet Count 400 T/CUMM (130-400); Red Blood Count 3.83 MC/CUMM (3.8-5.5); Red Cell Distribution Width 15.8 % (9.3-17.3); White Blood Count 36.9 T/CUMM (4-12)
[2016-09-20 15:26] LABS: ABG Base Excess -14.2 MMOL/L (-2.5-2.5); ABG HCO3 14.3 MMOL/L (20-26); ABG Oxygen Saturation 97.9 % (95-100); ABG PO2 141.2 MM HG (80-95); ABG TCO2 15.6 MMOL/L (23-27); Allen Test Positive; Pt O2 Delivery Device Ventilator
[2016-09-20 15:28] LABS: ABG PH 7.139 (7.35-7.45)
[2016-09-20] MEDS ORDERED: PROPOFOL 1,000 MG/100 ML BOTTLE IV ONE (15:35)
[2016-09-20 15:46] LABS: Band Neutrophils 2 % (0-10); Burr Cells 1+; Lymphocytes 5 % (20-55); Ovalocytes Few; Platelet Estimate Adequate; Poikilocytosis 1+; Segmented Neutrophils 87 % (50-85); Total Cells Counted 100
--- NOTE | 2016-09-20 16:42 | Pulmonology Consult Note ---
Assessment and Plan (1) Left femoral artery bleed Status: Acute Assessment and plan: Patient had bleeding from the arterial puncture site in his left femoral region. Dr. Alvarez has repaired this. He had significant blood loss and transfusions. Presently sedated and on the ventilator and somewhat hypotensive. Current Visit: Yes (2) Metabolic acidosis Status: Acute Assessment and plan: We will give him some bicarbonate infusion to try to get his pH up to about 7.25. Current Visit: Yes (3) COPD (chronic obstructive pulmonary disease) Status: Acute Assessment and plan: He is not actively wheezing. We will not add bronchodilators as yet. May need to do this as time goes on. He has been given a good bit of fluid with this hypotension associated with the bleed. Current Visit: Yes (4) Acute respiratory failure Status: Acute Assessment and plan: ABGs acceptable except for metabolic acidosis. Adjusting vent settings. Will ventilate until stable enough to get off. Current Visit: Yes (5) Tobacco abuse Status: Acute Assessment and plan: This will course lead to increased risk atelectasis or pneumonia Current Visit: No (6) CAD (coronary artery disease) Status: Chronic Assessment and plan: Status post coronary stenting. Current Visit: No Qualifiers: Coronary Disease-Associated Artery/Lesion type: [place] artery [place] vs. transplanted heart: [place] heart Associated angina: without angina Qualified Code(s): I25.10 - Atherosclerotic heart disease of [place] coronary artery without angina pectoris History of Present Illness Chief complaint: Post cardiac catheterization with left femoral bleed History of present illness: Mr. Adam is a 66 year old male who came in for catheterization because of inferior ischemia on cardiac Lexiscan. He was being evaluated for carotid surgery. He came in this morning and had a catheterization with a stent placed. Postoperatively he developed a hematoma in the left inguinal area. This required going to surgery with Dr. العراقي repairing it. He had a good bit of blood losses and multiple units of blood and his hematocrit is up into the 30s now. He is on the ventilator and has some metabolic acidosis. He has a history of persistent tobacco abuse atherosclerotic cardiovascular disease and carotid disease. He had previous abdominal aortic aneurysm repair with endovascular repair. Has a history of atrial fibrillation but apparently is now in sinus rhythm. He also has a history of COPD benign prostatic hypertrophy. He smokes 1-2 packs of cigarettes a day. Home Medications Medication Instructions Recorded Confirmed Type Baclofen Tab [[facility]] 10 mg PO TID PRN 07/06/16 09/20/16 History HYDROcodone/ACETAMIN 10-325 [[place] 1 tablet PO Q4H 07/06/16 09/20/16 History 10-325] Tamsulosin [Flomax] 0.4 mg PO QAM 07/06/16 09/20/16 History Gabapentin Cap/Tab [Neurontin 600 mg PO TID 07/12/16 09/20/16 History Cap/Tab] Diltiazem Cd Cap [Cardizem CD] 240 mg PO QAM 07/14/16 09/20/16 History Rosuvastatin Calcium 20 mg PO BEDTIME 08/28/16 09/20/16 History Aspirin EC Tab 81 mg PO DAILY 09/20/16 09/20/16 History Allergies Allergy/AdvReac Type Severity Reaction Status Date / Time Sulfa (Sulfonamide Allergy Severe RASH Verified 07/12/16 06:46 Antibiotics) ROS unobtainable: due to endotracheal tube Exam (Pulmonay) H&P - Constitutional Vitals: Period Temp Pulse Resp BP Sys/Go Pulse Ox Last 24 Hr 98 F-98.2 F 78-107 10-20 62-185/33-93 92-97 Exam: Blood pressure is 120/71. Pulse is 100. Respirations 10. He is afebrile. Pupils react to light. Orotracheal tube in place. Neck is supple, has bilateral carotid bruits. Chest reveals a few rhonchi equal breath sounds. Heart rhythm is about 110 and he had occasional premature beat. Abdomen soft no masses. Bowel sounds decreased but present. Extremities no clubbing cyanosis or edema. Left foot is warm. Medical,Surgical,& Family Hx - Medical History Cardio: History of: CAD, Hypertension, Cardiovascular Problems (aneurysm) Neurology: No history of: Seizures HEENT: History of: Ear Problem (hearing loss), Eye Problem Respiratory: History of: COPD Renal: History of: Renal Problems (URINARY RETENTION) Musculoskeletal: History of: Herniated Disk (4 was givern injections in [place] does not remember dr or clinic) Other: No history of: Anesthesia Reactions - Surgical History Cardiac Surgeries: Sugical HX of: Cardiac Catheterization Abdominal Surgeries: Surgical HX of: Abdominal Surgery (aneurysm) Orthopedic Surgeries: Surgical HX of;: Orthopedic Surgery (injections) - Family History Family History: Reports;: Family Cancer (mom), Family Heart Disease (dad) - Social History Smoking Status: Current every day smoker Frequency of Alcohol Use: Unknown Type of Drug Use: None Results - Labs CBC & BMP: 09/20/16 15:16 Lab Results: I have reviewed the past 24 hour labs Quality Measures - VTE Contraindication to Pharmacological VTE Prophylaxis: Active Bleeding Specialty Discharge - Follow Up or Referrals
--- NOTE | 2016-09-20 16:56 | Event Note ---
Mr. Spear is more stable with no evidence of ongoing bleeding we take a little time to get his vascular system back to full while his H&H not particularly low now would not anticipate I would anticipate it will drop over the next 24 hours and may require transfusion a week and follow-up based on his vital signs
--- NOTE | 2016-09-20 17:23 | ECHO Report ---
Kia Aamir Exam Date: 09/20/2016 11:47 Referring Physician: Technologist: Ramona Bliss Age: 66 Ht (in): 72 Wt (lb): 180 Gender: M Exam Location: [facility] Echo Indications: S/P heart cath, Limited stude R/O PE BP: 121 / 46 HR: 101 Rhythm: Limited study Technical Quality: Technically difficult study IMPRESSIONS Technically difficult study The right atrium is mildly enlarged. The left atrium is mildly enlarged. Morphologically normal mitral valve. Aortic valve sclerosis. Morphologically normal tricuspid valve. Pulmonic valve not well visualized. No pericardial effusion. Aorta not well visualized. .EF 50 %. Inferior hypokinesis. MEASUREMENTS (Male / Female) Normal Values FINDINGS Left Ventricle EF 50 %.Inferior hypokinesis. Right Ventricle Normal right ventricular systolic function. Right Atrium The right atrium is mildly enlarged. Left Atrium The left atrium is mildly enlarged. Mitral Valve Morphologically normal mitral valve. Aortic Valve Aortic valve sclerosis. Tricuspid Valve Morphologically normal tricuspid valve. Pulmonic Valve Pulmonic valve not well visualized. Pericardium No pericardial effusion. Aorta Aorta not well visualized. Edgar Carr (Electronically Signed) Final Date: 20 Sep 2016 17:22
--- NOTE | 2016-09-20 17:37 | XRay Report ---
XR chest 1V portable Indication: Intubation Comparison: 28 August 2016 Findings: The heart and mediastinum are normal in size and configuration. Endotracheal tube is present with tip at the clavicle level. The pulmonary vascularity is normal in caliber. No lung infiltrates, effusions, pneumothorax or other abnormality is demonstrated. Impression: Endotracheal tube appears in good position. No other acute findings. PROCEDURE INTERPRETED AT [facility] DEPARTMENT OF RADIOLOGY Final Report Signed by: Dr. Manfred Scott
[2016-09-20 17:47] LABS: Calcium 7.1 MG/DL (8.5-10.1); Magnesium 1.8 MG/DL (1.8-2.4); Osmolality,Calculated 293.7 MOS/KG (273-304); Potassium 4.8 MMOL/L (3.5-5.1)
[2016-09-20 18:12] LABS: ABG Base Excess -12.2 MMOL/L (-2.5-2.5); ABG HCO3 14.8 MMOL/L (20-26); ABG PCO2 37.8 MM HG (35-48); ABG PH 7.212 (7.35-7.45); ABG PO2 240.8 MM HG (80-95)
[2016-09-20] MEDS ORDERED: PHENYLEPHRINE DRIP 40 MG/250 ML PREMIX IV ONE (18:49)
[2016-09-20] MEDS: PHENYLEPHRINE DRIP 40 MG/250 ML PREMIX IV SCH (18:58)
[2016-09-20] MEDS: SODIUM ACETATE 50 MEQ in DEXTROSE 5% NACL 0.45% 1,000 ML IV SCH (18:58)
[2016-09-20] MEDS: LORazepam 2 MG/1 ML VIAL IV PRN (19:55)
[2016-09-20 20:12] LABS: Basophils # 0.1 10*3/uL (0.0-0.2); Basophils % 0.3 % (0.0-0.8); Hematocrit 34.8 VOL% (42.0-52.0); Hemoglobin 11.7 GM/DL (14.0-18.0); Immature Granulocytes % 4.4 %; Lymphocytes # 2.5 10*3/uL (1.4-4.0); Lymphocytes % 5.8 % (21.2-54.2); Mean Corpuscular HGB Conc 33.6 GM/DL (32-36); Mean Corpuscular Hemoglobin 32 PG (27-34); Mean Corpuscular Volume 94.1 FL (87-102); Mean Platelet Volume 9.2 FL (9.6-12.0); Monocytes # 4.5 10*3/uL (0.11-0.8); Monocytes % 10.4 % (1.7-12.7); Neutrophils # 34.2 10*3/uL (1.4-7.4); Neutrophils % 79.1 % (38.7-73.9); Platelet Count 408 T/CUMM (130-400); Red Cell Distribution Width 16.4 % (9.3-17.3)
[2016-09-20 20:16] LABS: White Blood Count 43.3 T/CUMM (4-12)
[2016-09-20 20:31] LABS: Burr Cells Few; Lymphocytes 7 % (20-55); Ovalocytes Few; Poikilocytosis 1+; Segmented Neutrophils 88 % (50-85); Total Cells Counted 100
[2016-09-20 20:32] LABS: Platelet Estimate Adequate
[2016-09-20] MEDS: ROSUVASTATIN 20 MG TABLET PO SCH (20:47)
[2016-09-21] MEDS: LORazepam 2 MG/1 ML VIAL IV PRN (00:28)
[2016-09-21] MEDS: PROPOFOL 1,000 MG/100 ML BOTTLE IV SCH ×2 (02:43→15:28)
[2016-09-21] MEDS: PHENYLEPHRINE DRIP 40 MG/250 ML PREMIX IV SCH ×2 (02:44→08:46)
--- NOTE | 2016-09-21 06:37 | XRay Report ---
Exam: XR chest 1V portable Date: 09/21/2016 4:00 AM Indication: Shortness of breath follow-up ventilator Comparison: 09/20/2016 Technical: AP portable Findings: Endotracheal tube at the level aortic knob. Nasogastric tube is in the stomach. Cardiac pad superimposed exam. External cardiac leads are present. A few granuloma changes and calcified nodes in the right infrahilar region. Minimal left basilar atelectatic change. Gastric distention is present. Impression: 1. Stable position of life-support tubing 2. Minimal left basilar atelectasis and calcified nodes in the perihilar regions right greater than left PROCEDURE INTERPRETED AT [facility] DEPARTMENT OF RADIOLOGY Final Report Signed by: Dr. Edilberto Phillip
[2016-09-21 06:38] LABS: Basophils # 0.1 10*3/uL (0.0-0.2); Basophils % 0.2 % (0.0-0.8); Hematocrit 31.8 VOL% (42.0-52.0); Hemoglobin 10.7 GM/DL (14.0-18.0); Immature Granulocytes % 2.6 %; Immature Granulocytes Absolute 1.07 #; Lymphocytes # 2.3 10*3/uL (1.4-4.0); Lymphocytes % 5.5 % (21.2-54.2); Mean Corpuscular HGB Conc 33.6 GM/DL (32-36); Mean Corpuscular Hemoglobin 31 PG (27-34); Mean Platelet Volume 9.8 FL (9.6-12.0); Monocytes # 3.6 10*3/uL (0.11-0.8); Monocytes % 8.7 % (1.7-12.7); NRBC # 0.02 10*3/uL; Platelet Count 331 T/CUMM (130-400); Red Blood Count 3.42 MC/CUMM (3.8-5.5); Red Cell Distribution Width 16.4 % (9.3-17.3)
[2016-09-21 06:49] LABS: ABG Base Excess -11.1 MMOL/L (-2.5-2.5); ABG HCO3 15.7 MMOL/L (20-26); ABG Oxygen Saturation 99.2 % (95-100); ABG PCO2 38.5 MM HG (35-48); ABG PH 7.226 (7.35-7.45); ABG TCO2 14.8 MMOL/L (23-27)
--- NOTE | 2016-09-21 06:49 | Cardiology Progress Note ---
Cardiology - PN: Subj Interval history: Cardiology note Day 1 status post cardiac cath with circumflex stent. Complicated by large retroperitoneal bleed with hypotension and shock. Status post repair of bleeding left external iliac artery and evacuation of hematoma by Dr. Alvarez. Sedated on Diprovan Telemetry shows sinus tach in the low 100s Blood pressure 102/65 on phenylephrine O2 sat 100 on 40% FiO2 About 100 cc OZ drainage to date Urine output is poor Last ABG pH 7.21 PCO2 37 PO2 240 bicarb 16 with a -12 base excess H&H 11.7 and 30 4. 4:08 units transfusion white count 43.3 platelets 408,000 Impression Status post circumflex stent yesterday with occluded RCA and EF 45% with inferobasal akinesis Day 1 status post large retroperitoneal bleed with emergent surgery and repair of bleeding left external iliac artery Status post endovascular AAA repair around [address] Norberto Black Status post repair type III endoleak with extension of bilateral iliac artery grafts by Dr. Alvarez 1 month ago Smoker Severe bilateral carotid artery stenosis by recent CTA and will need endarterectomy in the near future COPD Plan ABG and BMP pending Wean Levophed as tolerated Follow H&H closely Sodium acetate infusion Increase normal saline 125 mL's per hour Exam (Progress Note) - Constitutional Vitals: Period Temp Pulse Resp BP Sys/Go Pulse Ox Last 24 Hr 96.4 F-98.3 F 78-132 10-42 62-185/24-93 88-100 Result/EKG - Labs CBC & BMP: 09/20/16 19:59 09/20/16 17:03 Labs: Laboratory Results - last 24 hr 09/20/16 09/20/16 09/20/16 10:47 12:06 12:07 WBC 14.6 H 21.3 H D RBC 2.86 L 2.35 L Hgb 8.9 L 7.3 L Hct 27.6 L 23.5 L MCV 96.5 100.0 MCH 31 31 MCHC 32.2 31.1 L RDW 16.3 16.6 Plt Count 506 H 529 H MPV 8.8 L 8.8 L Neut % (Auto) 70.6 67.6 Lymph % (Auto) 17.6 L 19.2 L [place] % (Auto) 8.1 7.0 Eos % (Auto) 1.7 1.1 Baso % (Auto) 0.4 0.3 Neut # (Auto) 10.3 H 14.4 H Lymph # (Auto) 2.6 4.1 H [place] # (Auto) 1.2 H 1.5 H Eos # (Auto) 0.3 0.2 Baso # (Auto) 0.1 0.1 Total Counted 100 Immature Gran % 1.6 4.8 Nucleated RBC % 0.0 0.0 Immature Gran # 0.23 1.03 Segmented Neutrophils 62 Band Neutrophils Lymphocytes 31 Monocytes 6 Eosinophils 1 Nucleated RBCs # 0.00 0.00 Platelet Estimate Increased Poikilocytosis 1+ Target Cells Few Ovalocytes 1+ [place] Cells ABG pH ABG pCO2 ABG pO2 ABG HCO3 ABG Total CO2 ABG O2 Saturation ABG Base Excess Hemoglobin Hematocrit FiO2 Sodium Potassium Chloride Carbon Dioxide Anion Gap BUN Creatinine GFR Calculation BUN/Creatinine Ratio Glucose POC Glucose Calculated Osmolality Calcium Magnesium Urine Color Urine Appearance Urine pH Ur Specific [place] Urine Protein Urine Glucose (UA) Urine Ketones Urine Blood Urine Nitrate Urine Bilirubin Urine Urobilinogen Urine Leukocytes Urine RBC Urine WBC Urine Mucus Ur Culture Indicated? Blood Type A POSITIVE Antibody Screen Crossmatch 09/20/16 09/20/16 09/20/16 12:07 12:25 15:12 WBC RBC Hgb Hct MCV MCH MCHC RDW Plt Count MPV Neut % (Auto) Lymph % (Auto) [place] % (Auto) Eos % (Auto) Baso % (Auto) Neut # (Auto) Lymph # (Auto) [place] # (Auto) Eos # (Auto) Baso # (Auto) Total Counted Immature Gran % Nucleated RBC % Immature Gran # Segmented Neutrophils Band Neutrophils Lymphocytes Monocytes Eosinophils Nucleated RBCs # Platelet Estimate Poikilocytosis Target Cells Ovalocytes Kevin Cells ABG pH 7.139 L* ABG pCO2 43.0 ABG pO2 141.2 H ABG HCO3 14.3 L ABG Total CO2 15.6 L ABG O2 Saturation 97.9 ABG Base Excess -14.2 L Hemoglobin Hematocrit FiO2 50.00 Sodium Potassium Chloride Carbon Dioxide Anion Gap BUN Creatinine GFR Calculation BUN/Creatinine Ratio Glucose POC Glucose Calculated Osmolality Calcium Magnesium Urine Color Yellow Urine Appearance Clear Urine pH 5.0 Ur Specific [place] 1.029 Urine Protein 30 Urine Glucose (UA) Negative Urine Ketones Negative Urine Blood Small Urine Nitrate Negative Urine Bilirubin Negative Urine Urobilinogen < 2.0 H Urine Leukocytes Negative Urine RBC 11 Urine WBC 2 Urine Mucus Occasional Ur Culture Indicated? Not indicated Blood Type A POSITIVE Antibody Screen Negative Crossmatch See Detail 09/20/16 09/20/16 09/20/16 15:16 17:03 18:08 WBC 36.9 H D RBC 3.83 D Hgb 11.9 L D Hct 36.1 L MCV 94.3 MCH 31 MCHC 33.0 RDW 15.8 Plt Count 400 D MPV 8.6 L Neut % (Auto) 77.9 H Lymph % (Auto) 6.4 L [place] % (Auto) 7.7 Eos % (Auto) 0.3 Baso % (Auto) 0.4 Neut # (Auto) 28.7 H Lymph # (Auto) 2.4 [place] # (Auto) 2.9 H Eos # (Auto) 0.1 Baso # (Auto) 0.1 Total Counted 100 Immature Gran % 7.3 Nucleated RBC % 0.0 Immature Gran # 2.70 Segmented Neutrophils 87 H Band Neutrophils 2 Lymphocytes 5 L Monocytes 6 Eosinophils Nucleated RBCs # 0.00 Platelet Estimate Adequate Poikilocytosis 1+ Target Cells Ovalocytes Few [place] Cells 1+ ABG pH 7.212 L ABG pCO2 37.8 ABG pO2 240.8 H ABG HCO3 14.8 L ABG Total CO2 16.0 L ABG O2 Saturation 99.0 ABG Base Excess -12.2 L Hemoglobin Hematocrit FiO2 Sodium 145 Potassium 4.8 Chloride 118 H Carbon Dioxide 17 L Anion Gap 14.8 BUN 12 Creatinine 1.10 GFR Calculation 82 BUN/Creatinine Ratio 10.00 Glucose 203 H POC Glucose Calculated Osmolality 293.7 Calcium 7.1 L Magnesium 1.8 Urine Color Urine Appearance Urine pH Ur Specific [place] Urine Protein Urine Glucose (UA) Urine Ketones Urine Blood Urine Nitrate Urine Bilirubin Urine Urobilinogen Urine Leukocytes Urine RBC Urine WBC Urine Mucus Ur Culture Indicated? Blood Type Antibody Screen Crossmatch 09/20/16 09/20/16 09/21/16 19:59 Unknown 00:09 WBC 43.3 H* RBC 3.70 L Hgb 11.7 L Hct 34.8 L MCV 94.1 MCH 32 MCHC 33.6 RDW 16.4 Plt Count 408 H MPV 9.2 L Neut % (Auto) 79.1 H Lymph % (Auto) 5.8 L [place] % (Auto) 10.4 Eos % (Auto) 0.0 Baso % (Auto) 0.3 Neut # (Auto) 34.2 H Lymph # (Auto) 2.5 [place] # (Auto) 4.5 H Eos # (Auto) 0.0 Baso # (Auto) 0.1 Total Counted 100 Immature Gran % 4.4 Nucleated RBC % 0.0 Immature Gran # 1.90 Segmented Neutrophils 88 H Band Neutrophils Lymphocytes 7 L Monocytes 5 Eosinophils Nucleated RBCs # 0.00 Platelet Estimate Adequate Poikilocytosis 1+ Target Cells Ovalocytes Few Kevin Cells Few ABG pH 7.107 L* ABG pCO2 41.5 ABG pO2 454.0 H ABG HCO3 12.3 L ABG Total CO2 12.4 L ABG O2 Saturation 99.6 ABG Base Excess -16.1 L Hemoglobin 10.6 L Hematocrit 32.7 L FiO2 Sodium Potassium 3.7 Chloride Carbon Dioxide Anion Gap BUN Creatinine GFR Calculation BUN/Creatinine Ratio Glucose 257 H POC Glucose 165 H Calculated Osmolality Calcium Magnesium Urine Color Urine Appearance Urine pH Ur Specific [place] Urine Protein Urine Glucose (UA) Urine Ketones Urine Blood Urine Nitrate Urine Bilirubin Urine Urobilinogen Urine Leukocytes Urine RBC Urine WBC Urine Mucus Ur Culture Indicated? Blood Type Antibody Screen Crossmatch Quality Measures - VTE Contraindication to Pharmacological VTE Prophylaxis: Active Bleeding Specialty Discharge - Follow Up or Referrals
[2016-09-21] MEDS: SODIUM ACETATE 50 MEQ in DEXTROSE 5% NACL 0.45% 1,000 ML IV SCH ×3 (06:53→15:24)
[2016-09-21 07:11] LABS: Band Neutrophils 1 % (0-10); Burr Cells Slight; Hypochromasia Slight; Lymphocytes 4 % (20-55); Platelet Estimate Adequate; Segmented Neutrophils 88 % (50-85); Total Cells Counted 100
[2016-09-21 07:13] LABS: Blood Urea Nitrogen 19 MG/DL (7-18); Calcium 7.5 MG/DL (8.5-10.1); Glucose 128 MG/DL (74-106); Magnesium 1.7 MG/DL (1.8-2.4); Osmolality,Calculated 289.8 MOS/KG (273-304); Potassium 5.5 MMOL/L (3.5-5.1); Sodium 144 MMOL/L (136-145)
[2016-09-21 07:15] LABS: Troponin I Only 0.276 NG/ML (0.00-0.045)
[2016-09-21] MEDS ORDERED: SODIUM CHLORIDE 0.9% 200 ML IV ONE (07:15)
[2016-09-21] MEDS ORDERED: SODIUM CHLORIDE 0.9% 100 ML IV ONE (07:15)
[2016-09-21] MEDS ORDERED: SODIUM CHLORIDE 0.9% 500 ML IV ONE (07:15)
--- NOTE | 2016-09-21 07:40 | EKG Report ---
Stationary ECG Study [facility] Test Date: 09/21/2016 7:39:53 AM Pat Name: AAMIR GREER Department: Room: 126 Gender: M Phy Therapist: HAROLDO : 1950 Requested by: Aamir Carr Order Number: [id number] Reading MD: VITALY VANN Intervals [place] Rate: 104 P: 83 NM: 135 QRS: 82 QRSD: 81 T: 69 QT: 299 QTc: 360 Interpretive Statements SINUS TACHYCARDIA at 104 bpm Electronically Signed On 09-21-16 08:51:03 CDT by VITALY VANN [email or web address]
--- NOTE | 2016-09-21 07:41 | Pulmonology Progress Note ---
Pulmonary - PN: Subj Interval history: This 66-year-old white male had bleeding complications following her cardiac catheterization yesterday. He required surgery to control the bleeding. He is on the ventilator. He has a persistent metabolic acidosis although it is not quite as bad as last night. His creatinine has come up to 2.5. Chest x-ray looks good. His urine output is low. We need renal to see him. He is not ready for weaning until acidosis can be controlled. He is getting sodium acetate in IV fluids, the hospital does not have bicarb. Exam (Progress Note) - Constitutional Vitals: Period Temp Pulse Resp BP Sys/Go Pulse Ox Last 24 Hr 96.4 F-98.3 F 78-132 10-42 62-185/24-93 88-100 Exam: Patient sedated. Vital signs normal. Pupils react to light. Orotracheal tube in place. Neck is supple. Hear minimal bruits over both carotids. Chest sounds clear equal breath sounds. Heart normal rate and rhythm no murmurs. Abdomen soft no masses. Extremities no clubbing cyanosis edema. Left foot is warm. He has a brace on his right leg. Bandage over the left inguinal area Results - Labs CBC & BMP: 09/21/16 05:49 09/21/16 05:49 Lab Results: I have reviewed the past 24 hour labs - Diagnostic Findings Procedure: Chest x-ray: image reviewed by me (Lungs are clear. ET tube in good position.) Assessment and Plan (1) Left femoral artery bleed Status: Acute Assessment and plan: Patient had bleeding from the arterial puncture site in his left femoral region. Dr. Alvarez has repaired this. He had significant blood loss and transfusions. Presently sedated and on the ventilator and somewhat hypotensive. 09/21/2016 hematocrit is stable. Current Visit: Yes (2) Metabolic acidosis Status: Acute Assessment and plan: We will give him some bicarbonate infusion to try to get his pH up to about 7.25. 09/21/2016 his metabolic acidosis is partially corrected. However his creatinine is up to 2.5. Urine output is low. We need nephrology to assist. Current Visit: Yes (3) COPD (chronic obstructive pulmonary disease) Status: Acute Assessment and plan: He is not actively wheezing. We will not add bronchodilators as yet. May need to do this as time goes on. He has been given a good bit of fluid with this hypotension associated with the bleed. 09/21/2016 no active wheezing. Has slightly prolonged expiratory phase at most. Not able to wean until acidosis is improving. Current Visit: Yes (4) Acute respiratory failure Status: Acute Assessment and plan: ABGs acceptable except for metabolic acidosis. Adjusting vent settings. Will ventilate until stable enough to get off. 09/21/2016 continuing mechanical ventilation. Can start weaning until metabolic acidosis corrected. Current Visit: Yes (5) Tobacco abuse Status: Acute Assessment and plan: This will course lead to increased risk atelectasis or pneumonia Current Visit: No (6) CAD (coronary artery disease) Status: Chronic Assessment and plan: Status post coronary stenting. Current Visit: No Qualifiers: Coronary Disease-Associated Artery/Lesion type: [place] artery [place] vs. transplanted heart: [place] heart Associated angina: without angina Qualified Code(s): I25.10 - Atherosclerotic heart disease of [place] coronary artery without angina pectoris Specialty Discharge - Follow Up or Referrals
--- NOTE | 2016-09-21 07:53 | Event Note ---
Mr. Spear demonstrates no active bleeding there is just a little bloody fluid in the OZ drain which is to be expected his hemoglobin and hematocrit are stable white blood count I think is secondary to a leukemoid reaction tolerated certainly more IV fluids could be given. Feet are without palpable pulses but are adequately perfused with no sign of ongoing ischemia of there.
--- NOTE | 2016-09-21 08:41 | Anesthesia Post-Op ---
Anesthesia Post OP - Post Ansesthetic Evaluation Patient seen in post op: Yes Resp: within normal limits (remains on vent) CV: within normal limits (remains on vaso-pressors, but slowly weaning.) Mental: within normal limits (nurse states that Mr. Adam will follow commands if propofol sedation is turned off.) Temp: within normal limits [id number]: within normal limits Nausea and Vomiting: within normal limits Pain: within normal limits
[2016-09-21] MEDS: GABAPENTIN 600 MG TABLET PO SCH ×3 (08:45→20:59)
[2016-09-21] MEDS: TAMSULOSIN 0.4 MG CAPSULE PO SCH (08:45)
[2016-09-21] MEDS: ASPIRIN EC 81 MG TABLET PO SCH (08:45)
[2016-09-21] MEDS: DILTIAZEM CD 240 MG CAPSULE PO SCH (08:48)
[2016-09-21] MEDS: PRASUGREL 10 MG TABLET PO SCH (09:14)
[2016-09-21] MEDS: DILTIAZEM 60 MG TABLET PO SCH ×4 (09:14→20:58)
--- NOTE | 2016-09-21 09:48 | Physician Query Form ---
CLICK EDIT DOCUMENT TO SELECT QUERY ANSWER --> OK --> SIGN Yuko Chaney RN, CCDS Certified Clinical Binding [employer] W) [phone] (f) [phone] [email or web address]: Make your selection(s) from the choices in EACH section by typing an "x" and enter comments in the comment section. Please use your independent medical judgment in providing your response. This request does not imply that any particular answer is desired or expected. CLINICAL INDICATORS: (Providers should not edit this section) The medical record indicates that the patient was admitted for CAD, had a cath, later had a hematoma develop, tachycardia, HH has dropped to 7.3/ 23.5 and the patient was given four units of blood. Based on the above, could you clarify which of the following conditions you are evaluating, treating, and/or monitoring? ( ) Blood loss anemia ( ) acute ( ) chronic ( ) acute on chronic ( ) Acute blood loss anemia on baseline chronic anemia ( x) Acute blood loss anemia as a complication of a procedure ( ) Iron deficiency anemia not associated with blood loss ( ) Dilutional anemia due to IV fluids ( ) Anemia due to chemotherapy ( ) Anemia due to neoplastic disease ( ) Anemia due to chronic kidney disease ( ) Pernicious anemia ( ) Aplastic anemia ( ) Hemolytic anemia ( ) immune ( ) non-immune - please specify cause: ( ) Anemia due to other condition, please specify: ( ) Clinically unable to determine COMMENTS: PLEASE ALSO DOCUMENT RESPONSE IN PROGRESS NOTES AND/OR DISCHARGE SUMMARY Use of terms such as suspected, likely, or probable (associated with a specific diagnosis that is being evaluated, monitored, or treated as if it exists) are acceptable and can be restated in the discharge summary if not ruled out. MTDD
--- NOTE | 2016-09-21 09:50 | Physician Query Form ---
CLICK EDIT DOCUMENT TO SELECT QUERY ANSWER --> OK --> SIGN Yuko Chaney RN, CCDS Certified Clinical V[employer] Administrator W) [phone] (f) [phone] [email or web address]: Make your selection(s) from the choices in EACH section by typing an "x" and enter comments in the comment section. Please use your independent medical judgment in providing your response. This request does not imply that any particular answer is desired or expected. CLINICAL INDICATORS: (Providers should not edit this section) The medical record indicates that the patient was admitted for CAD, had a cath, later had a hematoma develop, BP dropped in the 80's 90's systolic, "shock" is mentioned, given 4 units of blood and was placed on Norepinephrine/ TRE. Please clarify which, if any, of the following is the etiology of the above symptoms and treatment rendered: ( ) Hypovolemic shock ( ) Cardiogenic shock ( x) Hemorrhagic shock ( ) Traumatic shock ( ) Shock due to, please specify etiology: ( ) Shock, unknown etiology ( ) Iatrogenic Hypotension ( ) Orthostatic Hypotension ( ) Hypotension, unknown etiology ( ) Other, please specify: ( ) Clinically unable to determine COMMENTS: PLEASE ALSO DOCUMENT RESPONSE IN PROGRESS NOTES AND/OR DISCHARGE SUMMARY Use of terms such as suspected, likely, or probable (associated with a specific diagnosis that is being evaluated, monitored, or treated as if it exists) are acceptable and can be restated in the discharge summary if not ruled out. MTDD
--- NOTE | 2016-09-21 11:40 | Nephrology Consult Note ---
History of Present Illness Chief complaint: ARF History of present illness: Mr. Adam is a 66 year old male who underwent cardiac cath yesterday. This was complicated by retroperitoneal bleed with hypotension. He underwent surgical repair of the external iliac artery. He has required pressors. Creatinine was 1.1 on admission. It has risen to 2.5. He has been oliguric. He remains on ventilator. Home Medications Medication Instructions Recorded Confirmed Type Baclofen Tab [Lioresal] 10 mg PO TID PRN 07/06/16 09/20/16 History HYDROcodone/ACETAMIN 10-325 [[place] 1 tablet PO Q4H 07/06/16 09/20/16 History 10-325] Tamsulosin [Flomax] 0.4 mg PO QAM 07/06/16 09/20/16 History Gabapentin Cap/Tab [Neurontin 600 mg PO TID 07/12/16 09/20/16 History Cap/Tab] Diltiazem Cd Cap [Cardizem CD] 240 mg PO QAM 07/14/16 09/20/16 History Rosuvastatin Calcium 20 mg PO BEDTIME 08/28/16 09/20/16 History Aspirin EC Tab 81 mg PO DAILY 09/20/16 09/20/16 History Allergies Allergy/AdvReac Type Severity Reaction Status Date / Time Sulfa (Sulfonamide Allergy Severe RASH Verified 07/12/16 06:46 Antibiotics) Medical,Surgical,& Family Hx - Medical History Cardio: History of: CAD, Hypertension, Cardiovascular Problems (aneurysm) Neurology: No history of: Seizures HEENT: History of: Ear Problem (hearing loss), Eye Problem Respiratory: History of: COPD Renal: History of: Renal Problems (URINARY RETENTION) Musculoskeletal: History of: Herniated Disk (4 was givern injections in wise does not remember dr or clinic) Other: No history of: Anesthesia Reactions - Surgical History Cardiac Surgeries: Sugical HX of: Cardiac Catheterization Abdominal Surgeries: Surgical HX of: Abdominal Surgery (aneurysm) Orthopedic Surgeries: Surgical HX of;: Orthopedic Surgery (injections) - Family History Family History: Reports;: Family Cancer (mom), Family Heart Disease (dad) - Social History Smoking Status: Current every day smoker Frequency of Alcohol Use: Unknown Type of Drug Use: None Review of Systems ROS unobtainable: due to endotracheal tube Exam - Vital Signs Vital signs: Period Temp Pulse Resp BP Sys/Go Pulse Ox Last 24 Hr 96.4 F-98.3 F 98-132 10-42 80-141/24-77 88-100 Exam: Gen.: Sedated on ventilator ENT: Pupils equal round reactive to light. Delete Neck: Supple. No JVD or bruit. Cardiovascular: Regular rate and rhythm. No murmur rub or gallop Lungs: Clear Abdomen: Soft. Nontender. Positive bowel sounds. No organomegaly Extremities: Trace edema right leg Results - Labs CBC & BMP: 09/21/16 05:49 09/21/16 05:49 Assessment and Plan (1) ARF (acute renal failure) Status: Acute Assessment and plan: 66-year-old man with: * CAD. Cardiac cath with stent placement yesterday * Retroperitoneal bleed. Status post surgical evacuation * ARF. This is due to hypotension. Continue supportive care * Abdominal aortic aneurysm. Prior endograft * Continue ventilatory support Current Visit: Yes (2) Retroperitoneal hemorrhage complicating cardiac catheterization Status: Acute Current Visit: Yes (3) Acute respiratory failure Status: Acute Current Visit: Yes (4) COPD (chronic obstructive pulmonary disease) Status: Acute Current Visit: Yes (5) Metabolic acidosis Status: Acute Current Visit: Yes (6) CAD (coronary artery disease) Status: Chronic Current Visit: No Qualifiers: Coronary Disease-Associated Artery/Lesion type: [place] artery [place] vs. transplanted heart: [place] heart Associated angina: without angina Qualified Code(s): I25.10 - Atherosclerotic heart disease of [place] coronary artery without angina pectoris (7) History of AAA (abdominal aortic aneurysm) repair Status: Chronic Current Visit: No Specialty Discharge - Follow Up or Referrals
[2016-09-21] MEDS: NOREPINEPHRINE 8 MG in SODIUM CHLORIDE 0.9% 242 ML IV SCH (12:45)
[2016-09-21] MEDS: ROSUVASTATIN 20 MG TABLET PO SCH (20:59)
[2016-09-22] MEDS: SODIUM ACETATE 50 MEQ in DEXTROSE 5% NACL 0.45% 1,000 ML IV SCH ×4 (01:10→21:45)
[2016-09-22] MEDS: PHENYLEPHRINE DRIP 40 MG/250 ML PREMIX IV SCH ×2 (01:20→20:27)
[2016-09-22] MEDS: PROPOFOL 1,000 MG/100 ML BOTTLE IV SCH ×2 (03:15→16:28)
[2016-09-22 04:31] LABS: ABG Base Excess -4.9 MMOL/L (-2.5-2.5); ABG HCO3 20.4 MMOL/L (20-26); ABG Oxygen Saturation 99.3 % (95-100); ABG PCO2 42.7 MM HG (35-48); ABG PH 7.303 (7.35-7.45); ABG TCO2 20.2 MMOL/L (23-27)
[2016-09-22 05:36] LABS: Basophils % 0.2 % (0.0-0.8); Eosinophils % 0.1 % (0.00-10.9); Hematocrit 21.9 VOL% (42.0-52.0); Hemoglobin 7.2 GM/DL (14.0-18.0); Immature Granulocytes % 0.7 %; Immature Granulocytes Absolute 0.19 #; Lymphocytes # 1.5 10*3/uL (1.4-4.0); Lymphocytes % 5.8 % (21.2-54.2); Mean Corpuscular HGB Conc 32.9 GM/DL (32-36); Mean Corpuscular Hemoglobin 31 PG (27-34); Mean Corpuscular Volume 93.6 FL (87-102); Mean Platelet Volume 9.8 FL (9.6-12.0); Monocytes # 2.3 10*3/uL (0.11-0.8); Monocytes % 8.9 % (1.7-12.7); Neutrophils # 21.4 10*3/uL (1.4-7.4); Neutrophils % 84.3 % (38.7-73.9); Platelet Count 183 T/CUMM (130-400); Red Blood Count 2.34 MC/CUMM (3.8-5.5); Red Cell Distribution Width 16.2 % (9.3-17.3); White Blood Count 25.3 T/CUMM (4-12)
[2016-09-22 05:58] LABS: Band Neutrophils 1 % (0-10); Lymphocytes 7 % (20-55); Microcytosis 1+; Segmented Neutrophils 87 % (50-85); Total Cells Counted 100
[2016-09-22 05:59] LABS: Ovalocytes Slight; Platelet Estimate Adequate
[2016-09-22 06:07] LABS: Albumin 1.9 G/DL (3.4-5.0); Bilirubin,Total 0.6 MG/DL (0.2-1.0); Calcium 7.1 MG/DL (8.5-10.1); Potassium 4.7 MMOL/L (3.5-5.1); Total Protein 3.8 G/DL (6.4-8.3)
--- NOTE | 2016-09-22 07:00 | Pulmonology Progress Note ---
Pulmonary - PN: Subj Interval history: This 66-year-old white male had bleeding complications following her cardiac catheterization yesterday. He required surgery to control the bleeding. He is on the ventilator. He has a persistent metabolic acidosis although it is not quite as bad as last night. His creatinine has come up to 2.5. Chest x-ray looks good. His urine output is low. We need renal to see him. He is not ready for weaning until acidosis can be controlled. He is getting sodium acetate in IV fluids, the hospital does not have bicarb. 09/22/2016 patient is responsive when propofol is held. ABGs are better. PH up to 7.30. Will start weaning trials. His hematocrit was reported as 21. That is being rechecked. He may require some old blood. Exam (Progress Note) - Constitutional Vitals: Period Temp Pulse Resp BP Sys/Go Pulse Ox Last 24 Hr 97 F-100.7 F 84-106 16-37 96-153/43-63 94-100 Exam: Patient sedated. Vital signs normal. Pupils react to light. Orotracheal tube in place. Neck is supple. Hear minimal bruits over both carotids. Chest sounds clear equal breath sounds. Heart normal rate and rhythm no murmurs. Abdomen soft no masses. Extremities no clubbing cyanosis edema. Left foot is warm. He has a brace on his right leg. Bandage over the left inguinal area Results - Labs CBC & BMP: 09/22/16 04:13 09/22/16 04:13 Lab Results: I have reviewed the past 24 hour labs Assessment and Plan (1) Left femoral artery bleed Status: Acute Assessment and plan: Patient had bleeding from the arterial puncture site in his left femoral region. Dr. Alvarez has repaired this. He had significant blood loss and transfusions. Presently sedated and on the ventilator and somewhat hypotensive. 09/21/2016 hematocrit is stable. 09/22/2016 hematocrit 21. Lab being rechecked to decide if he needs transfusion. Current Visit: Yes (2) Metabolic acidosis Status: Acute Assessment and plan: We will give him some bicarbonate infusion to try to get his pH up to about 7.25. 09/21/2016 his metabolic acidosis is partially corrected. However his creatinine is up to 2.5. Urine output is low. We need nephrology to assist. 09/22/2016 pH is up to 7.3. Creatinine slightly low. Hopefully we can start weaning. Current Visit: Yes (3) COPD (chronic obstructive pulmonary disease) Status: Acute Assessment and plan: He is not actively wheezing. We will not add bronchodilators as yet. May need to do this as time goes on. He has been given a good bit of fluid with this hypotension associated with the bleed. 09/21/2016 no active wheezing. Has slightly prolonged expiratory phase at most. Not able to wean until acidosis is improving. 09/22/2016 continuing bronchodilators. Current Visit: Yes (4) Acute respiratory failure Status: Acute Assessment and plan: ABGs acceptable except for metabolic acidosis. Adjusting vent settings. Will ventilate until stable enough to get off. 09/21/2016 continuing mechanical ventilation. Can start weaning until metabolic acidosis corrected. 09/22/2016 metabolic acidosis is at least partially corrected. Will start weaning trials. Current Visit: Yes (5) Tobacco abuse Status: Acute Assessment and plan: This will course lead to increased risk atelectasis or pneumonia Current Visit: No (6) CAD (coronary artery disease) Status: Chronic Assessment and plan: Status post coronary stenting. Current Visit: No Qualifiers: Coronary Disease-Associated Artery/Lesion type: [place] artery [place] vs. transplanted heart: [place] heart Associated angina: without angina Qualified Code(s): I25.10 - Atherosclerotic heart disease of [place] coronary artery without angina pectoris Specialty Discharge - Follow Up or Referrals
--- NOTE | 2016-09-22 07:11 | Cardiology Progress Note ---
Cardiology - PN: Subj Interval history: Cardiology note Day 2 status post cardiac cath with circumflex stent Complicated by large retroperitoneal bleed with hypotension and shock. Status post repair of bleeding left external iliac artery and evacuation hematoma Dr. Alvarez. Blood pressure better. 130/70 now off phenylephrine. Telemetry shows sinus rhythm in the 80s. O2 sat 99 on 40% FiO2 Decreased breath sounds but fairly clear Regular rhythm distant heart tones Abdomen soft Left groin looks good no hematoma or bruit Lab data today White count 25.3 Hemoglobin 7.2 hematocrit 21.9 ABG pH 7.303 PCO2 47 PO2 137 bicarb 20.4 Sodium 143 potassium 4.7 chloride 112 CO2 27 BUN 29 creatinine down to 2.10 Impression Status post circumflex stent with occluded RCA and EF 45% with inferobasal akinesis Status post large retroperitoneal bleed with emergent surgery and repair of bleeding left external iliac artery Status post endovascular AAA repair [address] Norberto Black Status post repair type III endoleak with extension of bilateral iliac artery grafts by Dr. Alvarez 1 month ago Active smoker COPD Severe bilateral carotid artery stenosis by recent CTA Plan Continue sodium acetate infusion Recheck H&H Wean vent as tolerated Exam (Progress Note) - Constitutional Vitals: Period Temp Pulse Resp BP Sys/Go Pulse Ox Last 24 Hr 97.5 F-100.7 F 84-106 16-37 96-153/43-63 94-100 Result/EKG - Labs CBC & BMP: 09/22/16 04:13 09/22/16 04:13 Labs: Laboratory Results - last 24 hr 09/21/16 09/21/16 09/22/16 05:49 05:49 04:13 WBC 41.0 H* 25.3 H D RBC 3.42 L 2.34 L D Hgb 10.7 L 7.2 L D Hct 31.8 L 21.9 L MCV 93.0 93.6 MCH 31 31 MCHC 33.6 32.9 RDW 16.4 16.2 Plt Count 331 183 D MPV 9.8 9.8 Neut % (Auto) 83.0 H 84.3 H Lymph % (Auto) 5.5 L 5.8 L [place] % (Auto) 8.7 8.9 Eos % (Auto) 0.0 0.1 Baso % (Auto) 0.2 0.2 Neut # (Auto) 34.0 H 21.4 H Lymph # (Auto) 2.3 1.5 [place] # (Auto) 3.6 H 2.3 H Eos # (Auto) 0.0 0.0 Baso # (Auto) 0.1 0.0 Total Counted 100 100 Immature Gran % 2.6 0.7 Nucleated RBC % 0.0 0.0 Immature Gran # 1.07 0.19 Segmented Neutrophils 88 H 87 H Band Neutrophils 1 1 Lymphocytes 4 L 7 L Monocytes 7 5 Nucleated RBCs # 0.02 0.00 Platelet Estimate Adequate Adequate Hypochromasia Slight Microcytosis 1+ Ovalocytes Slight Brusly Cells Slight ABG pH ABG pCO2 ABG pO2 ABG HCO3 ABG Total CO2 ABG O2 Saturation ABG Base Excess Sodium 144 Potassium 5.5 H Chloride 114 H Carbon Dioxide 17 L Anion Gap 18.5 H BUN 19 H Creatinine 2.50 H GFR Calculation 31 BUN/Creatinine Ratio 7.00 Glucose 128 H Calculated Osmolality 289.8 Calcium 7.5 L Magnesium 1.7 L Total Bilirubin AST ALT Alkaline Phosphatase Total Creatine Kinase 137 CK-MB (CK-2) 4.1 H Troponin I 0.276 H Total Protein Albumin Globulin Albumin/Globulin Ratio 09/22/16 09/22/16 04:13 04:20 WBC RBC Hgb Hct MCV MCH MCHC RDW Plt Count MPV Neut % (Auto) Lymph % (Auto) [place] % (Auto) Eos % (Auto) Baso % (Auto) Neut # (Auto) Lymph # (Auto) [place] # (Auto) Eos # (Auto) Baso # (Auto) Total Counted Immature Gran % Nucleated RBC % Immature Gran # Segmented Neutrophils Band Neutrophils Lymphocytes Monocytes Nucleated RBCs # Platelet Estimate Hypochromasia Microcytosis Ovalocytes Brusly Cells ABG pH 7.303 L ABG pCO2 42.7 ABG pO2 137.0 H ABG HCO3 20.4 ABG Total CO2 20.2 L ABG O2 Saturation 99.3 ABG Base Excess -4.9 L Sodium 143 Potassium 4.7 Chloride 112 H Carbon Dioxide 22 Anion Gap 13.7 BUN 29 H D Creatinine 2.10 H GFR Calculation 38 BUN/Creatinine Ratio 13.00 Glucose 116 H Calculated Osmolality 291.0 Calcium 7.1 L Magnesium Total Bilirubin 0.60 AST 101 H ALT 76 H Alkaline Phosphatase 104 Total Creatine Kinase CK-MB (CK-2) Troponin I Total Protein 3.8 L Albumin 1.9 L Globulin 1.9 L Albumin/Globulin Ratio 1.0 L Quality Measures - VTE Contraindication to Pharmacological VTE Prophylaxis: Active Bleeding Specialty Discharge - Follow Up or Referrals
--- NOTE | 2016-09-22 07:18 | XRay Report ---
Exam: XR chest 1V portable Date: 09/22/2016 7:00 AM Indication: Follow-up ventilator Comparison: 09/21/2016 Findings: Endotracheal tube is at the level aortic knob. Nasogastric tube is in place. Low volume effusion or infiltrate present in the left base with a granuloma calcifications in the right infrahilar region. No pneumothorax. The heart is normal in size. External cardiac leads are present. Impression: 1. Stable position of life-support tubing 2. Slight increasing effusions atelectatic change or infiltrate in the left base with the some granuloma changes in the right infrahilar regions and/or atelectasis. PROCEDURE INTERPRETED AT [facility] DEPARTMENT OF RADIOLOGY Final Report Signed by: Dr. Edilberto Phillip
[2016-09-22 07:34] LABS: Magnesium 1.9 MG/DL (1.8-2.4); Osmolality,Calculated 291.8 MOS/KG (273-304); Potassium 4.7 MMOL/L (3.5-5.1)
[2016-09-22 07:42] LABS: Hematocrit 21.4 VOL% (42.0-52.0); Hemoglobin 7.1 GM/DL (14.0-18.0)
[2016-09-22] MEDS ORDERED: SODIUM CHLORIDE 0.9% 250 ML IV PRN (08:02)
--- NOTE | 2016-09-22 08:34 | Event Note ---
Mr. Spear hemoglobin and hematocrit have dropped significantly vital signs have remained relatively stable he is mildly tachycardic when he wakes up. Urine output is improved. And the creatinine is down a bit. I think this basically is just better hydration and stabilization after his acute blood loss. I do think it appropriate to get at least 2 more units of packed red blood cells today. Staff reports that he is passing a pinkish mucousy bowel movements good bit as I certainly believe he would be at risk for mild ischemic colitis associated with this episode of shock and that this continues and becomes bright red blood we may have to hold his anticoagulation. His abdomen is soft and has bowel sounds that hematoma does not appear to be expanding is bloody fluid from the OZ which I will leave for the time being. His lower legs are cool without palpable pulses but certainly are adequately perfused.
[2016-09-22 08:54] LABS: ABG Base Excess -3.4 MMOL/L (-2.5-2.5); ABG HCO3 21.6 MMOL/L (20-26); ABG Oxygen Saturation 99.1 % (95-100); ABG PCO2 41.5 MM HG (35-48); ABG PH 7.336 (7.35-7.45)
[2016-09-22] MEDS: GABAPENTIN 600 MG TABLET PO SCH ×3 (10:01→20:30)
[2016-09-22] MEDS: DILTIAZEM 60 MG TABLET PO SCH ×4 (10:02→20:26)
[2016-09-22] MEDS: TAMSULOSIN 0.4 MG CAPSULE PO SCH (10:02)
[2016-09-22] MEDS: PRASUGREL 10 MG TABLET PO SCH (10:19)
--- NOTE | 2016-09-22 11:40 | Event Note ---
Patient has been having pink frothy stools overnight. Hematocrit has dropped. I have discussed with Dr. Carr. This morning, he will receive 2 units of packed red blood cells. Continue aspirin daily, stop Effient. May be related to hypoperfusion to the bowel and hopefully this will resolve. We will continue to monitor closely.
[2016-09-22] MEDS ORDERED: ASPIRIN CHEW 81 MG TABLET PO ONE ×2 (12:15→12:18)
--- NOTE | 2016-09-22 12:47 | XRay Report ---
Exam: XR knee 2V RT Date: 09/22/2016 11:03 AM Comparison: 08/29/2016 Indication: Tibial plateau fracture Technique:[AP and lateral right knee] Findings: Persistent evidence of displaced comminuted fractures of the proximal right tibia centered at the metaphysis and extending to the articular surface in the lateral tibial plateau location. The fracture lines are still identifiable with evidence of callus formation. Persistent nondisplaced fracture of the proximal right fibula. Only minimal callus formation noted. Smaller knee joint effusion with decreased soft tissue swelling. Vascular calcifications are noted. Impression: No significant change in the position and alignment of the displaced fracture of the proximal right tibia and nondisplaced fracture of the proximal right fibula. Callus formation noted but the fracture lines are still identifiable and follow-up x-rays recommended. Smaller knee joint effusion with persistent degenerative changes and vascular calcifications. PROCEDURE INTERPRETED AT [facility] DEPARTMENT OF RADIOLOGY Final Report Signed by: Dr. Ela Gomez
--- NOTE | 2016-09-22 15:31 | Nephrology Progress Note ---
Nephrology - PN: Subj Interval history: He remains on the ventilator. He is more alert. Blood pressure has stabilized. He is off pressors. Exam (PN)-Nephrology - Vital Signs Vital signs: Period Temp Pulse Resp BP Sys/Go Pulse Ox Last 24 Hr 98.1 F-100.7 F 80-123 11-37 114-201/43-87 94-100 Exam: Gen.: On ventilator ENT: Pupils equal round reactive to light. EOMs intact. Neck: Supple. No JVD or bruit. Cardiovascular: Regular rate and rhythm. No murmur rub or gallop Lungs: Clear Abdomen: Soft. Nontender. Positive bowel sounds. No organomegaly Extremities: No edema - Lab 09/22/16 07:30 09/22/16 04:13 Most recent lab results ABG pH 7.336 (7.35-7.45) L 09/22/16 08:45 ABG pCO2 41.5 MM HG (35-48) 09/22/16 08:45 ABG pO2 108.0 MM HG (80-95) H 09/22/16 08:45 ABG HCO3 21.6 MMOL/L (20-26) 09/22/16 08:45 ABG O2 Saturation 99.1 % (95-100) 09/22/16 08:45 Calcium 7.0 MG/DL (8.5-10.1) L 09/22/16 04:13 Magnesium 1.9 MG/DL (1.8-2.4) 09/22/16 04:13 Assessment and Plan (1) ARF (acute renal failure) Status: Acute Assessment and plan: 66-year-old man with: * CAD. Cardiac cath with stent placement yesterday * Retroperitoneal bleed. Status post surgical evacuation * ARF. Renal function improving as blood pressure improved. Urine output better * Abdominal aortic aneurysm. Prior endograft * Continue ventilatory support Current Visit: Yes (2) Retroperitoneal hemorrhage complicating cardiac catheterization Status: Acute Current Visit: Yes (3) Acute respiratory failure Status: Acute Current Visit: Yes (4) COPD (chronic obstructive pulmonary disease) Status: Acute Current Visit: Yes (5) Metabolic acidosis Status: Acute Current Visit: Yes (6) CAD (coronary artery disease) Status: Chronic Current Visit: No Qualifiers: Coronary Disease-Associated Artery/Lesion type: [place] artery [place] vs. transplanted heart: [place] heart Associated angina: without angina Qualified Code(s): I25.10 - Atherosclerotic heart disease of [place] coronary artery without angina pectoris (7) History of AAA (abdominal aortic aneurysm) repair Status: Chronic Current Visit: No Specialty Discharge - Follow Up or Referrals
[2016-09-22] MEDS ORDERED: AMIODARONE INJ 150 MG in DEXTROSE 5% 100 ML IV ONE (16:12)
--- NOTE | 2016-09-22 16:12 | Event Note ---
Having episodes of PAF. Upon review of prior clinic records, he does have a known history of PAF. I will initiate IV Amiodorone protocol at this time.
[2016-09-22] MEDS ORDERED: AMIODARONE INJ 450 MG in DEXTROSE 5% 241 ML IV SCH (16:40)
[2016-09-22 16:47] LABS: Calcium 7.2 MG/DL (8.5-10.1); Magnesium 1.8 MG/DL (1.8-2.4); Potassium 4.4 MMOL/L (3.5-5.1)
[2016-09-22] MEDS: DESITIN 4OZ/NYSTATIN 15 GRAM MIXTURE PASTE TOP SCH ×2 (17:03→20:27)
--- NOTE | 2016-09-22 18:05 | Orthopedic Progress Note ---
Orthopedics - Subjective Interval history: Intubated. Events noted. Hinged knee brace in place discussed with nursing it is okay to remove for bathing hygiene purposes. Will follow once extubated and can start mobilizing Exam - Constitutional Vitals: Period Temp Pulse Resp BP Sys/Go Pulse Ox Last 24 Hr 98.1 F-100.7 F 80-160 9-37 114-201/46-89 94-100 Results - Labs CBC & BMP: 09/22/16 07:30 09/22/16 16:20 Quality Measures - VTE Contraindication to Pharmacological VTE Prophylaxis: Active Bleeding Specialty Discharge - Follow Up or Referrals
[2016-09-22] MEDS: ROSUVASTATIN 20 MG TABLET PO SCH (20:27)
[2016-09-23] MEDS: AMIODARONE INJ 450 MG in DEXTROSE 5% 241 ML IV SCH ×2 (00:40→16:25)
[2016-09-23] MEDS: PROPOFOL 1,000 MG/100 ML BOTTLE IV SCH ×4 (01:45→20:50)
[2016-09-23 05:01] LABS: Basophils % 0.2 % (0.0-0.8); Eosinophils # 0.1 10*3/uL (0.0-0.87); Eosinophils % 0.6 % (0.00-10.9); Hematocrit 23.5 VOL% (42.0-52.0); Hemoglobin 7.9 GM/DL (14.0-18.0); Immature Granulocytes % 1.1 %; Lymphocytes # 1.1 10*3/uL (1.4-4.0); Lymphocytes % 6.1 % (21.2-54.2); Mean Corpuscular HGB Conc 33.6 GM/DL (32-36); Mean Corpuscular Hemoglobin 31 PG (27-34); Mean Corpuscular Volume 92.5 FL (87-102); Mean Platelet Volume 9.3 FL (9.6-12.0); Monocytes # 1.3 10*3/uL (0.11-0.8); Monocytes % 7.5 % (1.7-12.7); Neutrophils % 84.5 % (38.7-73.9); Platelet Count 157 T/CUMM (130-400); Red Blood Count 2.54 MC/CUMM (3.8-5.5); Red Cell Distribution Width 15.6 % (9.3-17.3); White Blood Count 17.8 T/CUMM (4-12)
[2016-09-23 05:25] LABS: Hypochromasia 1+; Microcytosis 1+; Ovalocytes Slight; Platelet Estimate Normal
[2016-09-23 05:34] LABS: Calcium 7.6 MG/DL (8.5-10.1); Magnesium 1.9 MG/DL (1.8-2.4); Osmolality,Calculated 288.8 MOS/KG (273-304); Potassium 4.2 MMOL/L (3.5-5.1)
[2016-09-23] MEDS: SODIUM ACETATE 50 MEQ in DEXTROSE 5% NACL 0.45% 1,000 ML IV SCH ×3 (06:15→21:03)
[2016-09-23] MEDS: LORazepam 2 MG/1 ML VIAL IV PRN ×3 (06:44→16:54)
--- NOTE | 2016-09-23 06:48 | XRay Report ---
Portable chest Date: 09/23/2016 Clinical history: Ventilator Comparison: 09/22/2016 Technique: Portable AP sitting chest Findings: The heart is minimally larger in size with stable support devices. Progressive diffuse parenchymal findings especially at the lung bases with small pleural effusions. Stable mediastinum with degenerative changes. Impression: Progressive bibasilar atelectasis/infiltration/edema with small pleural effusions. Stable supportive devices. PROCEDURE INTERPRETED AT [facility] DEPARTMENT OF RADIOLOGY Final Report Signed by: Dr. Ela Gomez
--- NOTE | 2016-09-23 07:05 | Cardiology Progress Note ---
Cardiology - PN: Subj Interval history: Cardiology note Day 3 status post circumflex stent complicated by retroperitoneal bleed Status post repair of bleeding left external iliac artery and evacuate hematoma by Dr. Alvarez He developed recurrent paroxysmal atrial fibrillation yesterday and has converted chemically with IV amiodarone. Telemetry shows sinus rhythm in the mid 80s O2 sat 98 on 40% FiO2 Blood pressure has been running a little high 160/74 at this time Good urine output H&H 7.9 and 23.5 respectively after 2 units yesterday Sodium 144 potassium 4.2 chloride 109 CO2 24 BUN 19 creatinine 0.90 museum 1.9 glucose 120 Regular rhythm distant heart tones Decreased breath sounds but fairly clear Abdomen is soft Left groin has small ecchymotic bruise no bruit or hematoma Impression Status post circumflex stent with occluded mid RCA and EF 45% with inferobasal akinesis Status post large retroperitoneal bleed with emergent surgery and repair of bleeding left external iliac artery Status post endovascular AAA repair [address] Norberto Black Status post repair type III endoleak with extension of bilateral iliac artery stents by Dr. Alvarez 1 month ago Active smoker COPD Severe bilateral carotid artery disease by recent CTA Recurrent atrial fibrillation Plan Transfuse 2 units Wean ventilator as tolerated Continue IV amiodarone Labs in a.m. Exam (Progress Note) - Constitutional Vitals: Period Temp Pulse Resp BP Sys/Go Pulse Ox Last 24 Hr 97.6 F-100.2 F 67-160 9-37 125-201/8-89 96-100 Result/EKG - Labs CBC & BMP: 09/23/16 04:45 09/23/16 04:45 Labs: Laboratory Results - last 24 hr 09/20/16 09/22/16 09/22/16 12:07 04:13 04:13 WBC RBC Hgb Hct MCV MCH MCHC RDW Plt Count MPV Neut % (Auto) Lymph % (Auto) [place] % (Auto) Eos % (Auto) Baso % (Auto) Neut # (Auto) Lymph # (Auto) [place] # (Auto) Eos # (Auto) Baso # (Auto) Immature Gran % Nucleated RBC % Immature Gran # Nucleated RBCs # Platelet Estimate Hypochromasia Microcytosis Ovalocytes Morphology Comment ABG pH ABG pCO2 ABG pO2 ABG HCO3 ABG Total CO2 ABG O2 Saturation ABG Base Excess Sodium 144 143 Potassium 4.7 4.7 Chloride 113 H 112 H Carbon Dioxide 20 L 22 Anion Gap 15.7 H 13.7 BUN 29 H D 29 H Creatinine 2.10 H 2.10 H GFR Calculation 38 38 BUN/Creatinine Ratio 13.00 13.00 Glucose 107 H 116 H Calculated Osmolality 291.8 291.0 Calcium 7.0 L 7.1 L Magnesium 1.9 Total Bilirubin 0.60 AST 101 H ALT 76 H Alkaline Phosphatase 104 Total Protein 3.8 L Albumin 1.9 L Globulin 1.9 L Albumin/Globulin Ratio 1.0 L Blood Type A POSITIVE Antibody Screen Negative Crossmatch See Detail 09/22/16 09/22/16 09/22/16 07:30 08:45 16:20 WBC RBC Hgb 7.1 L Hct 21.4 L MCV MCH MCHC RDW Plt Count MPV Neut % (Auto) Lymph % (Auto) [place] % (Auto) Eos % (Auto) Baso % (Auto) Neut # (Auto) Lymph # (Auto) [place] # (Auto) Eos # (Auto) Baso # (Auto) Immature Gran % Nucleated RBC % Immature Gran # Nucleated RBCs # Platelet Estimate Hypochromasia Microcytosis Ovalocytes Morphology Comment ABG pH 7.336 L ABG pCO2 41.5 ABG pO2 108.0 H ABG HCO3 21.6 ABG Total CO2 21.0 L ABG O2 Saturation 99.1 ABG Base Excess -3.4 L Sodium 143 Potassium 4.4 Chloride 112 H Carbon Dioxide 24 Anion Gap 11.4 BUN 26 H Creatinine 1.30 GFR Calculation 70 BUN/Creatinine Ratio 20.00 Glucose 103 Calculated Osmolality 289.0 Calcium 7.2 L Magnesium 1.8 Total Bilirubin AST ALT Alkaline Phosphatase Total Protein Albumin Globulin Albumin/Globulin Ratio Blood Type Antibody Screen Crossmatch 09/23/16 09/23/16 04:45 04:45 WBC 17.8 H RBC 2.54 L Hgb 7.9 L Hct 23.5 L MCV 92.5 MCH 31 MCHC 33.6 RDW 15.6 Plt Count 157 MPV 9.3 L Neut % (Auto) 84.5 H Lymph % (Auto) 6.1 L [place] % (Auto) 7.5 Eos % (Auto) 0.6 Baso % (Auto) 0.2 Neut # (Auto) 15.0 H Lymph # (Auto) 1.1 L [place] # (Auto) 1.3 H Eos # (Auto) 0.1 Baso # (Auto) 0.0 Immature Gran % 1.1 Nucleated RBC % 0.0 Immature Gran # 0.20 Nucleated RBCs # 0.00 Platelet Estimate Normal Hypochromasia 1+ Microcytosis 1+ Ovalocytes Slight Morphology Comment ABG pH ABG pCO2 ABG pO2 ABG HCO3 ABG Total CO2 ABG O2 Saturation ABG Base Excess Sodium 144 Potassium 4.2 Chloride 109 H Carbon Dioxide 24 Anion Gap 15.2 H BUN 19 H Creatinine 0.90 GFR Calculation 109 BUN/Creatinine Ratio 21.00 H Glucose 120 H Calculated Osmolality 288.8 Calcium 7.6 L Magnesium 1.9 Total Bilirubin AST ALT Alkaline Phosphatase Total Protein Albumin Globulin Albumin/Globulin Ratio Blood Type Antibody Screen Crossmatch Quality Measures - VTE Contraindication to Pharmacological VTE Prophylaxis: Active Bleeding Specialty Discharge - Follow Up or Referrals
--- NOTE | 2016-09-23 07:12 | Pulmonology Progress Note ---
Pulmonary - PN: Subj Interval history: This 66-year-old white male had bleeding complications following her cardiac catheterization yesterday. He required surgery to control the bleeding. He is on the ventilator. He has a persistent metabolic acidosis although it is not quite as bad as last night. His creatinine has come up to 2.5. Chest x-ray looks good. His urine output is low. We need renal to see him. He is not ready for weaning until acidosis can be controlled. He is getting sodium acetate in IV fluids, the hospital does not have bicarb. 09/22/2016 patient is responsive when propofol is held. ABGs are better. PH up to 7.30. Will start weaning trials. His hematocrit was reported as 21. That is being rechecked. He may require some old blood. 09/23/2016 patient did a CPAP yesterday but became tachycardic and they were stopped. Will resume weaning trials today. Exam (Progress Note) - Constitutional Vitals: Period Temp Pulse Resp BP Sys/Go Pulse Ox Last 24 Hr 97.6 F-100.2 F 67-160 9-37 125-201/8-89 96-100 Exam: Patient sedated. Vital signs normal. Pupils react to light. Orotracheal tube in place. Neck is supple. Hear minimal bruits over both carotids. Chest sounds clear equal breath sounds. Heart normal rate and rhythm no murmurs. Abdomen soft no masses. Extremities no clubbing cyanosis edema. Left foot is warm. He has a brace on his right leg. Bandage over the left inguinal area. little change from yesterday. Results - Labs CBC & BMP: 09/23/16 04:45 09/23/16 04:45 Lab Results: I have reviewed the past 24 hour labs - Diagnostic Findings Procedure: Chest x-ray: image reviewed by me (Bibasilar infiltrates with small left pleural effusion. ET tube is a little high.) Assessment and Plan (1) Left femoral artery bleed Status: Acute Assessment and plan: Patient had bleeding from the arterial puncture site in his left femoral region. Dr. Alvarez has repaired this. He had significant blood loss and transfusions. Presently sedated and on the ventilator and somewhat hypotensive. 09/21/2016 hematocrit is stable. 09/22/2016 hematocrit 21. Lab being rechecked to decide if he needs transfusion. 09/23/2016 hematocrit 23 after transfusion yesterday. Does not appear to be actively bleeding. Current Visit: Yes (2) Metabolic acidosis Status: Acute Assessment and plan: We will give him some bicarbonate infusion to try to get his pH up to about 7.25. 09/21/2016 his metabolic acidosis is partially corrected. However his creatinine is up to 2.5. Urine output is low. We need nephrology to assist. 09/22/2016 pH is up to 7.3. Creatinine slightly low. Hopefully we can start weaning. 09/23/2016 metabolic acidosis is improved with bicarb level of 24 on chemistries. Current Visit: Yes (3) COPD (chronic obstructive pulmonary disease) Status: Acute Assessment and plan: He is not actively wheezing. We will not add bronchodilators as yet. May need to do this as time goes on. He has been given a good bit of fluid with this hypotension associated with the bleed. 09/21/2016 no active wheezing. Has slightly prolonged expiratory phase at most. Not able to wean until acidosis is improving. 09/22/2016 continuing bronchodilators. 09/23/2016 minimal rhonchi. Continuing bronchodilators. Current Visit: Yes (4) Acute respiratory failure Status: Acute Assessment and plan: ABGs acceptable except for metabolic acidosis. Adjusting vent settings. Will ventilate until stable enough to get off. 09/21/2016 continuing mechanical ventilation. Can start weaning until metabolic acidosis corrected. 09/22/2016 metabolic acidosis is at least partially corrected. Will start weaning trials. 09/23/2016 ABGs improved. Resume CPAP today as tolerated. Had episode of tachycardia during CPAP yesterday. Current Visit: Yes (5) Tobacco abuse Status: Acute Assessment and plan: This will course lead to increased risk atelectasis or pneumonia Current Visit: No (6) CAD (coronary artery disease) Status: Chronic Assessment and plan: Status post coronary stenting. 09/23/2016 no signs of heart failure. No complaints of pain when awake. Current Visit: No Qualifiers: Coronary Disease-Associated Artery/Lesion type: [place] artery [place] vs. transplanted heart: [place] heart Associated angina: without angina Qualified Code(s): I25.10 - Atherosclerotic heart disease of [place] coronary artery without angina pectoris Specialty Discharge - Follow Up or Referrals
[2016-09-23] MEDS ORDERED: SODIUM CHLORIDE 0.9% 250 ML IV PRN (07:24)
--- NOTE | 2016-09-23 08:43 | Event Note ---
Mr. Spear is reasonably stable on the ventilator hopefully can progress and wane and get off blood count has drifted back down a bit but this is not unexpected again with a massive hematoma in the right retroperitoneum. OZ drain is showing 110 cc per day for the last 2 days of moderate sleep bloody fluid but there is not really any indication of active ongoing bleeding. This point I think he should continue as he is weaning as possible will continue to follow and leave the drain in for the time
[2016-09-23] MEDS: ASPIRIN CHEW 81 MG TABLET PO SCH (08:53)
[2016-09-23] MEDS: DILTIAZEM 60 MG TABLET PO SCH ×4 (08:53→21:02)
[2016-09-23] MEDS: GABAPENTIN 600 MG TABLET PO SCH ×3 (08:53→21:02)
[2016-09-23] MEDS ORDERED: DEXTROSE 50% 25 GM/50 ML VIAL IV PRN (09:10)
[2016-09-23] MEDS ORDERED: GLUCAGON 1 MG VIAL IM PRN (09:10)
[2016-09-23] MEDS: TAMSULOSIN 0.4 MG CAPSULE PO SCH (09:32)
[2016-09-23] MEDS: DESITIN 4OZ/NYSTATIN 15 GRAM MIXTURE PASTE TOP SCH ×2 (09:36→21:04)
[2016-09-23] MEDS: CARVEDILOL 6.25 MG TABLET PO SCH ×2 (11:59→21:01)
--- NOTE | 2016-09-23 13:18 | Nephrology Progress Note ---
Nephrology - PN: Subj Interval history: He remains on the ventilator. Weaning trials continue. Blood pressure stable Exam (PN)-Nephrology - Vital Signs Vital signs: Period Temp Pulse Resp BP Sys/Go Pulse Ox Last 24 Hr 97.2 F-99.6 F 67-160 9-36 125-201/8-89 97-100 Exam: Gen.: On ventilator. Follows commands ENT: Pupils equal round reactive to light. Neck: Supple. No JVD or bruit. Cardiovascular: Regular rate and rhythm. No murmur rub or gallop Lungs: Clear Abdomen: Soft. Nontender. Positive bowel sounds. No organomegaly Extremities: No edema - Lab 09/23/16 04:45 09/23/16 04:45 Most recent lab results ABG pH 7.336 (7.35-7.45) L 09/22/16 08:45 ABG pCO2 41.5 MM HG (35-48) 09/22/16 08:45 ABG pO2 108.0 MM HG (80-95) H 09/22/16 08:45 ABG HCO3 21.6 MMOL/L (20-26) 09/22/16 08:45 ABG O2 Saturation 99.1 % (95-100) 09/22/16 08:45 Calcium 7.6 MG/DL (8.5-10.1) L 09/23/16 04:45 Magnesium 1.9 MG/DL (1.8-2.4) 09/23/16 04:45 Assessment and Plan (1) ARF (acute renal failure) Status: Acute Assessment and plan: 66-year-old man with: * CAD. Cardiac cath with stent placement yesterday * Retroperitoneal bleed. Status post surgical evacuation * ARF. Resolved. Good urine output. Creatinine back to normal. I will sign off. Please recall as needed * Abdominal aortic aneurysm. Prior endograft * Continue ventilatory support Current Visit: Yes (2) Retroperitoneal hemorrhage complicating cardiac catheterization Status: Acute Current Visit: Yes (3) Acute respiratory failure Status: Acute Current Visit: Yes (4) COPD (chronic obstructive pulmonary disease) Status: Acute Current Visit: Yes (5) Metabolic acidosis Status: Acute Current Visit: Yes (6) CAD (coronary artery disease) Status: Chronic Current Visit: No Qualifiers: Coronary Disease-Associated Artery/Lesion type: [place] artery [place] vs. transplanted heart: [place] heart Associated angina: without angina Qualified Code(s): I25.10 - Atherosclerotic heart disease of [place] coronary artery without angina pectoris (7) History of AAA (abdominal aortic aneurysm) repair Status: Chronic Current Visit: No Specialty Discharge - Follow Up or Referrals
[2016-09-23] MEDS: INSULIN REGULAR 100 UNIT/ML SUBCUT SCH ×2 (16:38→20:37)
[2016-09-23 17:13] LABS: Basophils % 0.2 % (0.0-0.8); Eosinophils # 0.3 10*3/uL (0.0-0.87); Eosinophils % 1.5 % (0.00-10.9); Hematocrit 33.2 VOL% (42.0-52.0); Hemoglobin 11.2 GM/DL (14.0-18.0); Immature Granulocytes % 0.8 %; Immature Granulocytes Absolute 0.14 #; Lymphocytes # 1.1 10*3/uL (1.4-4.0); Lymphocytes % 6.6 % (21.2-54.2); Mean Corpuscular HGB Conc 33.7 GM/DL (32-36); Mean Corpuscular Hemoglobin 30 PG (27-34); Mean Corpuscular Volume 88.3 FL (87-102); Mean Platelet Volume 9.6 FL (9.6-12.0); Monocytes # 1.3 10*3/uL (0.11-0.8); Monocytes % 7.5 % (1.7-12.7); Neutrophils # 14.2 10*3/uL (1.4-7.4); Neutrophils % 83.4 % (38.7-73.9); Platelet Count 164 T/CUMM (130-400); Red Blood Count 3.76 MC/CUMM (3.8-5.5); Red Cell Distribution Width 16.4 % (9.3-17.3)
[2016-09-23] MEDS: PHENYLEPHRINE DRIP 40 MG/250 ML PREMIX IV SCH (20:37)
[2016-09-23] MEDS: ROSUVASTATIN 20 MG TABLET PO SCH (21:02)
[2016-09-24] MEDS: INSULIN REGULAR 100 UNIT/ML SUBCUT SCH ×4 (01:12→19:27)
[2016-09-24] MEDS: PROPOFOL 1,000 MG/100 ML BOTTLE IV SCH (02:35)
[2016-09-24 04:16] LABS: ABG Base Excess 2.9 MMOL/L (-2.5-2.5); ABG Oxygen Saturation 98.6 % (95-100); ABG PCO2 42.7 MM HG (35-48); ABG TCO2 25.4 MMOL/L (23-27)
[2016-09-24 04:26] LABS: Basophils % 0.3 % (0.0-0.8); Eosinophils # 0.4 10*3/uL (0.0-0.87); Eosinophils % 3.3 % (0.00-10.9); Hematocrit 27.6 VOL% (42.0-52.0); Hemoglobin 9.2 GM/DL (14.0-18.0); Immature Granulocytes % 0.5 %; Immature Granulocytes Absolute 0.06 #; Lymphocytes % 8.7 % (21.2-54.2); Mean Corpuscular HGB Conc 33.3 GM/DL (32-36); Mean Corpuscular Hemoglobin 30 PG (27-34); Mean Corpuscular Volume 88.5 FL (87-102); Monocytes # 0.9 10*3/uL (0.11-0.8); Neutrophils # 8.9 10*3/uL (1.4-7.4); Neutrophils % 79.2 % (38.7-73.9); Platelet Count 148 T/CUMM (130-400); Red Blood Count 3.12 MC/CUMM (3.8-5.5); Red Cell Distribution Width 16.4 % (9.3-17.3); White Blood Count 11.2 T/CUMM (4-12)
[2016-09-24 04:58] LABS: Total Cells Counted 100
[2016-09-24 04:59] LABS: Eosinophils 2 % (0-10); Hypochromasia 2+; Lymphocytes 9 % (20-55); Ovalocytes 1+; Platelet Estimate Adequate; Segmented Neutrophils 80 % (50-85)
[2016-09-24 05:16] LABS: Calcium 7.6 MG/DL (8.5-10.1); Magnesium 1.9 MG/DL (1.8-2.4); Phosphorous 2.9 MG/DL (2.5-4.9); Potassium 3.8 MMOL/L (3.5-5.1)
[2016-09-24] MEDS: SODIUM ACETATE 50 MEQ in DEXTROSE 5% NACL 0.45% 1,000 ML IV SCH ×3 (05:28→12:01)
[2016-09-24] MEDS: cloNIDine 0.1 MG TABLET PO PRN (06:19)
[2016-09-24] MEDS: AMIODARONE INJ 450 MG in DEXTROSE 5% 241 ML IV SCH (07:34)
--- NOTE | 2016-09-24 07:36 | Cardiology Progress Note ---
Cardiology - PN: Subj Interval history: Cardiology note Day 4 status post circumflex stent applicator by retroperitoneal bleed. Status post repair of bleeding left external iliac artery and evacuation hematoma by Dr. Alvarez Status post recurrent paroxysmal atrial fibrillation converted with IV amiodarone Telemetry shows sinus rhythm in the 70s and 80s O2 sat 100 on 40% FiO2 Blood pressure running a little high 190/70 About 90 cc OZ drainage yesterday Excellent urine output Regular rhythm no murmur Bilateral carotid bruits as before Decreased breath sounds but fairly clear Abdomen soft No leg edema Lab data today White count down to 11.2 hemoglobin 9.2 hematocrit 27.6 after 2 more units yesterday PH 7.42 PCO2 42.7 PO2 110 bicarb 25 Sodium 143 potassium 3.8 chloride 108 CO2 27 BUN 13 creatinine 0.70 Glucose 129 Impression Status post circumflex stent with occluded mid right coronary and EF 45% with inferobasal akinesis Status post retroperitoneal bleed with emergent surgery and repair of bleeding left external iliac artery Status post endovascular AAA repair [address] Norberto Black Status post repair type III [place]ak with extension of bilateral iliac artery stents with Dr. Alvarez 1 month ago active smoker Recurrent paroxysmal atrial fibrillation COPD Severe bilateral carotid artery stenosis by recent CTA Plan DC IV amiodarone, switch to p.o. 200 mg twice daily Increase Coreg 25 mg twice daily continue Cardizem 60 mg 4 times daily Clonidine 0.1 mg as needed Labs in a.m. Exam (Progress Note) - Constitutional Vitals: Period Temp Pulse Resp BP Sys/Go Pulse Ox Last 24 Hr 97.2 F-98.4 F 60-93 15-26 127-206/56-77 96-100 Result/EKG - Labs CBC & BMP: 09/24/16 03:50 09/24/16 03:50 Labs: Laboratory Results - last 24 hr 09/23/16 09/23/16 09/23/16 12:13 17:00 17:47 WBC 17.0 H RBC 3.76 L D Hgb 11.2 L D Hct 33.2 L MCV 88.3 MCH 30 MCHC 33.7 RDW 16.4 Plt Count 164 MPV 9.6 Neut % (Auto) 83.4 H Lymph % (Auto) 6.6 L [place] % (Auto) 7.5 Eos % (Auto) 1.5 Baso % (Auto) 0.2 Neut # (Auto) 14.2 H Lymph # (Auto) 1.1 L [place] # (Auto) 1.3 H Eos # (Auto) 0.3 Baso # (Auto) 0.0 Total Counted Immature Gran % 0.8 Nucleated RBC % 0.0 Immature Gran # 0.14 Segmented Neutrophils Lymphocytes Monocytes Eosinophils Nucleated RBCs # 0.00 Platelet Estimate Hypochromasia Ovalocytes ABG pH ABG pCO2 ABG pO2 ABG HCO3 ABG Total CO2 ABG O2 Saturation ABG Base Excess Sodium Potassium Chloride Carbon Dioxide Anion Gap BUN Creatinine GFR Calculation BUN/Creatinine Ratio Glucose POC Glucose 97 113 H Calculated Osmolality Calcium Phosphorus Magnesium Blood Type Antibody Screen Crossmatch 09/23/16 09/24/16 09/24/16 Unknown 00:53 03:50 WBC RBC Hgb Hct MCV MCH MCHC RDW Plt Count MPV Neut % (Auto) Lymph % (Auto) [place] % (Auto) Eos % (Auto) Baso % (Auto) Neut # (Auto) Lymph # (Auto) [place] # (Auto) Eos # (Auto) Baso # (Auto) Total Counted Immature Gran % Nucleated RBC % Immature Gran # Segmented Neutrophils Lymphocytes Monocytes Eosinophils Nucleated RBCs # Platelet Estimate Hypochromasia Ovalocytes ABG pH 7.420 ABG pCO2 42.7 ABG pO2 111.0 H ABG HCO3 27.0 H ABG Total CO2 25.4 ABG O2 Saturation 98.6 ABG Base Excess 2.9 H Sodium Potassium Chloride Carbon Dioxide Anion Gap BUN Creatinine GFR Calculation BUN/Creatinine Ratio Glucose POC Glucose 119 H Calculated Osmolality Calcium Phosphorus Magnesium Blood Type A POSITIVE Antibody Screen Negative Crossmatch See Detail 09/24/16 09/24/16 03:50 03:50 WBC 11.2 D RBC 3.12 L Hgb 9.2 L D Hct 27.6 L MCV 88.5 MCH 30 MCHC 33.3 RDW 16.4 Plt Count 148 MPV 10.0 Neut % (Auto) 79.2 H Lymph % (Auto) 8.7 L [place] % (Auto) 8.0 Eos % (Auto) 3.3 Baso % (Auto) 0.3 Neut # (Auto) 8.9 H Lymph # (Auto) 1.0 L [place] # (Auto) 0.9 H Eos # (Auto) 0.4 Baso # (Auto) 0.0 Total Counted 100 Immature Gran % 0.5 Nucleated RBC % 0.0 Immature Gran # 0.06 Segmented Neutrophils 80 Lymphocytes 9 L Monocytes 9 Eosinophils 2 Nucleated RBCs # 0.00 Platelet Estimate Adequate Hypochromasia 2+ Ovalocytes 1+ ABG pH ABG pCO2 ABG pO2 ABG HCO3 ABG Total CO2 ABG O2 Saturation ABG Base Excess Sodium 143 Potassium 3.8 Chloride 108 H Carbon Dioxide 27 Anion Gap 11.8 BUN 13 Creatinine 0.70 GFR Calculation 121 BUN/Creatinine Ratio 18.00 Glucose 129 H POC Glucose Calculated Osmolality 286.0 Calcium 7.6 L Phosphorus 2.9 Magnesium 1.9 Blood Type Antibody Screen Crossmatch Quality Measures - VTE Contraindication to Pharmacological VTE Prophylaxis: Active Bleeding Specialty Discharge - Follow Up or Referrals
--- NOTE | 2016-09-24 07:39 | Pulmonology Progress Note ---
Pulmonary - PN: Subj Interval history: This 66-year-old white male had bleeding complications following her cardiac catheterization yesterday. He required surgery to control the bleeding. He is on the ventilator. He has a persistent metabolic acidosis although it is not quite as bad as last night. His creatinine has come up to 2.5. Chest x-ray looks good. His urine output is low. We need renal to see him. He is not ready for weaning until acidosis can be controlled. He is getting sodium acetate in IV fluids, the hospital does not have bicarb. 09/22/2016 patient is responsive when propofol is held. ABGs are better. PH up to 7.30. Will start weaning trials. His hematocrit was reported as 21. That is being rechecked. He may require some old blood. 09/23/2016 patient did a CPAP yesterday but became tachycardic and they were stopped. Will resume weaning trials today. 09/24/2016 patient's ABGs look better with acidosis corrected. Will reduce IV acetate. Will try again on CPAP today. Patient does get anxious. I will try changing him to Precedex instead of propofol so that we can continue that while he is completing his trials. Has been slight interstitial infiltrate on x-ray. Afebrile no other new problems. Hematocrit is 27 Exam (Progress Note) - Constitutional Vitals: Period Temp Pulse Resp BP Sys/Go Pulse Ox Last 24 Hr 97.2 F-98.4 F 60-93 15-26 127-206/56-77 96-100 Exam: Patient sedated. Vital signs normal. Pupils react to light. Orotracheal tube in place. Neck is supple. Hear minimal bruits over both carotids. Chest sounds clear equal breath sounds. Heart normal rate and rhythm no murmurs. Abdomen soft no masses. Extremities no clubbing cyanosis edema. Left foot is warm. He has a brace on his right leg. Bandage over the left inguinal area. Results - Labs CBC & BMP: 09/24/16 03:50 09/24/16 03:50 Lab Results: I have reviewed the past 24 hour labs - Diagnostic Findings Procedure: Chest x-ray: image reviewed by me (Bibasilar infiltrates, ET tube in good position. Little change from yesterday.) Assessment and Plan (1) Left femoral artery bleed Status: Acute Assessment and plan: Patient had bleeding from the arterial puncture site in his left femoral region. Dr. Alvarez has repaired this. He had significant blood loss and transfusions. Presently sedated and on the ventilator and somewhat hypotensive. 09/21/2016 hematocrit is stable. 09/22/2016 hematocrit 21. Lab being rechecked to decide if he needs transfusion. 09/23/2016 hematocrit 23 after transfusion yesterday. Does not appear to be actively bleeding. 09/24/2016 no further bleeding. Hematocrit is 27. Current Visit: Yes (2) Metabolic acidosis Status: Acute Assessment and plan: We will give him some bicarbonate infusion to try to get his pH up to about 7.25. 09/21/2016 his metabolic acidosis is partially corrected. However his creatinine is up to 2.5. Urine output is low. We need nephrology to assist. 09/22/2016 pH is up to 7.3. Creatinine slightly low. Hopefully we can start weaning. 09/23/2016 metabolic acidosis is improved with bicarb level of 24 on chemistries. 09/24/2016 metabolic acidosis has been corrected. Hopefully can tolerate weaning trials. Current Visit: Yes (3) COPD (chronic obstructive pulmonary disease) Status: Acute Assessment and plan: He is not actively wheezing. We will not add bronchodilators as yet. May need to do this as time goes on. He has been given a good bit of fluid with this hypotension associated with the bleed. 09/21/2016 no active wheezing. Has slightly prolonged expiratory phase at most. Not able to wean until acidosis is improving. 09/22/2016 continuing bronchodilators. 09/23/2016 minimal rhonchi. Continuing bronchodilators. 09/24/2016 continuing bronchodilators. Will give short course of steroids. Current Visit: Yes (4) Acute respiratory failure Status: Acute Assessment and plan: ABGs acceptable except for metabolic acidosis. Adjusting vent settings. Will ventilate until stable enough to get off. 09/21/2016 continuing mechanical ventilation. Can start weaning until metabolic acidosis corrected. 09/22/2016 metabolic acidosis is at least partially corrected. Will start weaning trials. 09/23/2016 ABGs improved. Resume CPAP today as tolerated. Had episode of tachycardia during CPAP yesterday. 09/24/2016 this appears improved. Hopefully we can get him weaned over the next day or 2. Current Visit: Yes (5) Tobacco abuse Status: Acute Assessment and plan: This will course lead to increased risk atelectasis or pneumonia Current Visit: No (6) CAD (coronary artery disease) Status: Chronic Assessment and plan: Status post coronary stenting. 09/23/2016 no signs of heart failure. No complaints of pain when awake. Current Visit: No Qualifiers: Coronary Disease-Associated Artery/Lesion type: [place] artery [place] vs. transplanted heart: [place] heart Associated angina: without angina Qualified Code(s): I25.10 - Atherosclerotic heart disease of [place] coronary artery without angina pectoris Specialty Discharge - Follow Up or Referrals
[2016-09-24] MEDS: GABAPENTIN 600 MG TABLET PO SCH ×3 (08:17→20:05)
[2016-09-24] MEDS: DILTIAZEM 60 MG TABLET PO SCH ×4 (08:17→20:06)
[2016-09-24] MEDS: ASPIRIN CHEW 81 MG TABLET PO SCH (08:17)
--- NOTE | 2016-09-24 08:17 | XRay Report ---
XR chest 1V portable Indication: Ventilator Comparison: Chest x-ray 09/23/2016 Technique: Portable AP chest was performed. Findings: Multiple tubes and medical support devices appear stable. Improved visualization of the left hemidiaphragm is noted. Stranding opacities in each cardiophrenic angle remain present. Chest is otherwise unchanged. Impression: 1. Some improvement in aeration of the left lung base is suggested. Stranding present bilaterally within the cardiophrenic angles is favored to reflect atelectasis. 09/24/2016 8:13 AM PROCEDURE INTERPRETED AT [facility] DEPARTMENT OF RADIOLOGY Final Report Signed by: Dr. Braeden Chaney
[2016-09-24] MEDS: CARVEDILOL 25 MG TABLET PO SCH ×2 (08:21→20:06)
[2016-09-24] MEDS: DESITIN 4OZ/NYSTATIN 15 GRAM MIXTURE PASTE TOP SCH ×2 (08:25→20:06)
[2016-09-24] MEDS: TAMSULOSIN 0.4 MG CAPSULE PO SCH (08:25)
[2016-09-24] MEDS: methylPREDNISolone SOD SUC 40 MG/1 ML VIAL IV SCH ×2 (08:34→20:05)
[2016-09-24] MEDS: AMIODARONE 200 MG TABLET PO SCH ×2 (08:34→20:06)
[2016-09-24] MEDS: PIPERACILLIN/TAZOBACTAM 3,375 MG in SODIUM CHLORIDE 0.9% 100 ML IV SCH ×2 (08:34→16:05)
[2016-09-24 09:54] LABS: ABG Base Excess 4.3 MMOL/L (-2.5-2.5); ABG HCO3 28.3 MMOL/L (20-26); ABG Oxygen Saturation 98.1 % (95-100); ABG PH 7.452 (7.35-7.45); ABG PO2 93.3 MM HG (80-95); ABG TCO2 26.2 MMOL/L (23-27)
--- NOTE | 2016-09-24 11:02 | Event Note ---
General Surgery Progress Note Chief complaint This patient is a 66-year-old man who developed a tear in his external iliac artery after cardiac catheterization that was treated with exploration of his retroperitoneum through groin incision by Dr. العراقي with repair of arterial tear on 09/20/2016 Interval history The patient is waking up and he is weaning off the ventilator. He is tolerating tube feeds. His OZ drain has minimal output around 60 cc and it is serosanguineous. His hemoglobin did drop from 11.2-9.2 today. Physical exam The patient is afebrile with normal vital signs The left groin incision is clean with no infection. The OZ drain has serosanguineous output Chest is clear Heart is regular Labs Reviewed, as above Imaging Reviewed Assessment and plan Continue OZ drainage. Follow hemoglobin. No indications for transfusion today. Repeat labs tomorrow I will continue to follow the patient
[2016-09-24] MEDS: DEXMEDETOMIDINE 200 MCG in SODIUM CHLORIDE 0.9% 48 ML IV SCH (12:00)
[2016-09-24 13:22] LABS: ABG Base Excess 3.6 MMOL/L (-2.5-2.5); ABG HCO3 27.6 MMOL/L (20-26); ABG Oxygen Saturation 99.3 % (95-100); ABG PCO2 41.4 MM HG (35-48); ABG PH 7.439 (7.35-7.45); ABG TCO2 25.1 MMOL/L (23-27)
[2016-09-24] MEDS: PHENYLEPHRINE DRIP 40 MG/250 ML PREMIX IV SCH (19:09)
[2016-09-24] MEDS: LORazepam 2 MG/1 ML VIAL IV PRN ×2 (19:15→21:54)
[2016-09-24] MEDS: ZALEPLON 5 MG CAPSULE PO PRN (20:06)
[2016-09-24] MEDS: ROSUVASTATIN 20 MG TABLET PO SCH (20:06)
[2016-09-25] MEDS: SODIUM ACETATE 50 MEQ in DEXTROSE 5% NACL 0.45% 1,000 ML IV SCH ×2 (00:41→05:14)
[2016-09-25] MEDS: INSULIN REGULAR 100 UNIT/ML SUBCUT SCH ×4 (00:41→18:17)
[2016-09-25] MEDS: PIPERACILLIN/TAZOBACTAM 3,375 MG in SODIUM CHLORIDE 0.9% 100 ML IV SCH ×3 (00:41→15:14)
[2016-09-25] MEDS: LORazepam 2 MG/1 ML VIAL IV PRN ×3 (05:14→19:38)
[2016-09-25 06:50] LABS: Basophils % 0.1 % (0.0-0.8); Hematocrit 29.3 VOL% (42.0-52.0); Hemoglobin 9.9 GM/DL (14.0-18.0); Immature Granulocytes % 0.8 %; Lymphocytes # 0.5 10*3/uL (1.4-4.0); Lymphocytes % 3.6 % (21.2-54.2); Mean Corpuscular HGB Conc 33.8 GM/DL (32-36); Mean Corpuscular Hemoglobin 30 PG (27-34); Mean Corpuscular Volume 87.2 FL (87-102); Mean Platelet Volume 9.6 FL (9.6-12.0); Monocytes # 0.7 10*3/uL (0.11-0.8); Monocytes % 5.6 % (1.7-12.7); Neutrophils # 11.6 10*3/uL (1.4-7.4); Neutrophils % 89.9 % (38.7-73.9); Platelet Count 200 T/CUMM (130-400); Red Blood Count 3.36 MC/CUMM (3.8-5.5); Red Cell Distribution Width 15.4 % (9.3-17.3); White Blood Count 12.9 T/CUMM (4-12)
[2016-09-25 07:17] LABS: Band Neutrophils 3 % (0-10); Hypochromasia 1+; Lymphocytes 2 % (20-55); Microcytosis 1+; Segmented Neutrophils 91 % (50-85); Total Cells Counted 100
[2016-09-25 07:27] LABS: Calcium 7.9 MG/DL (8.5-10.1); Magnesium 2.1 MG/DL (1.8-2.4); Potassium 3.6 MMOL/L (3.5-5.1)
--- NOTE | 2016-09-25 08:04 | Pulmonology Progress Note ---
Pulmonary - PN: Subj Interval history: This 66-year-old white male had bleeding complications following her cardiac catheterization yesterday. He required surgery to control the bleeding. He is on the ventilator. He has a persistent metabolic acidosis although it is not quite as bad as last night. His creatinine has come up to 2.5. Chest x-ray looks good. His urine output is low. We need renal to see him. He is not ready for weaning until acidosis can be controlled. He is getting sodium acetate in IV fluids, the hospital does not have bicarb. 09/22/2016 patient is responsive when propofol is held. ABGs are better. PH up to 7.30. Will start weaning trials. His hematocrit was reported as 21. That is being rechecked. He may require some old blood. 09/23/2016 patient did a CPAP yesterday but became tachycardic and they were stopped. Will resume weaning trials today. 09/24/2016 patient's ABGs look better with acidosis corrected. Will reduce IV acetate. Will try again on CPAP today. Patient does get anxious. I will try changing him to Precedex instead of propofol so that we can continue that while he is completing his trials. Has been slight interstitial infiltrate on x-ray. Afebrile no other new problems. Hematocrit is 27 09/25/2016 we were able to get him extubated yesterday. His speech is a little slow today. We are reviewing his medications and he is getting a good bit of [place]. We will reduce that dose. Apparently he was on that 3 times a day prior to admission. His ABGs have looked good post extubation. Exam (Progress Note) - Constitutional Vitals: Period Temp Pulse Resp BP Sys/Go Pulse Ox Last 24 Hr 97.8 F-98.3 F 69-92 15-21 161-201/60-76 94-100 Exam: Patient responsive but his speech is slow. Vital signs normal. Pupils react to light. Now on nasal oxygen. Neck is supple. Hear minimal bruits over both carotids. Chest sounds clear equal breath sounds. Heart normal rate and rhythm no murmurs. Abdomen soft no masses. Extremities no clubbing cyanosis edema. Left foot is warm. He has a brace on his right leg. Bandage over the left inguinal area. Results - Labs CBC & BMP: 09/25/16 06:32 09/25/16 06:32 Lab Results: I have reviewed the past 24 hour labs Assessment and Plan (1) Left femoral artery bleed Status: Acute Assessment and plan: Patient had bleeding from the arterial puncture site in his left femoral region. Dr. Alvarez has repaired this. He had significant blood loss and transfusions. Presently sedated and on the ventilator and somewhat hypotensive. 09/21/2016 hematocrit is stable. 09/22/2016 hematocrit 21. Lab being rechecked to decide if he needs transfusion. 09/23/2016 hematocrit 23 after transfusion yesterday. Does not appear to be actively bleeding. 09/24/2016 no further bleeding. Hematocrit is 27. 09/25/2016 hematocrit 29 and stable. Current Visit: Yes (2) Metabolic acidosis Status: Acute Assessment and plan: We will give him some bicarbonate infusion to try to get his pH up to about 7.25. 09/21/2016 his metabolic acidosis is partially corrected. However his creatinine is up to 2.5. Urine output is low. We need nephrology to assist. 09/22/2016 pH is up to 7.3. Creatinine slightly low. Hopefully we can start weaning. 09/23/2016 metabolic acidosis is improved with bicarb level of 24 on chemistries. 09/24/2016 metabolic acidosis has been corrected. Hopefully can tolerate weaning trials. 09/25/2016 acidosis has been corrected. Current Visit: Yes (3) COPD (chronic obstructive pulmonary disease) Status: Acute Assessment and plan: He is not actively wheezing. We will not add bronchodilators as yet. May need to do this as time goes on. He has been given a good bit of fluid with this hypotension associated with the bleed. 09/21/2016 no active wheezing. Has slightly prolonged expiratory phase at most. Not able to wean until acidosis is improving. 09/22/2016 continuing bronchodilators. 09/23/2016 minimal rhonchi. Continuing bronchodilators. 09/24/2016 continuing bronchodilators. Will give short course of steroids. 09/25/2016 continuing bronchodilators. Brief dose of steroids. Current Visit: Yes (4) Acute respiratory failure Status: Acute Assessment and plan: ABGs acceptable except for metabolic acidosis. Adjusting vent settings. Will ventilate until stable enough to get off. 09/21/2016 continuing mechanical ventilation. Can start weaning until metabolic acidosis corrected. 09/22/2016 metabolic acidosis is at least partially corrected. Will start weaning trials. 09/23/2016 ABGs improved. Resume CPAP today as tolerated. Had episode of tachycardia during CPAP yesterday. 09/24/2016 this appears improved. Hopefully we can get him weaned over the next day or 2. 09/25/2016 patient was able to be extubated yesterday. Doing well off the ventilator. I am concerned a bit that his speech is a little slow. It may be due to his [place] dosing. We will reduce that to every 8 hours now Current Visit: Yes (5) Tobacco abuse Status: Acute Assessment and plan: This will course lead to increased risk atelectasis or pneumonia Current Visit: No (6) CAD (coronary artery disease) Status: Chronic Assessment and plan: Status post coronary stenting. 09/23/2016 no signs of heart failure. No complaints of pain when awake. 09/25/2016 does not appear to be in heart failure. Current Visit: No Qualifiers: Coronary Disease-Associated Artery/Lesion type: jamul artery [place] vs. transplanted heart: jamul heart Associated angina: without angina Qualified Code(s): I25.10 - Atherosclerotic heart disease of jamul coronary artery without angina pectoris Specialty Discharge - Follow Up or Referrals
--- NOTE | 2016-09-25 08:52 | Event Note ---
General Surgery Progress Note Chief complaint This patient is a 66-year-old man who developed a tear in his external iliac artery after cardiac catheterization that was treated with exploration of his retroperitoneum through groin incision by Dr. العراقي with repair of arterial tear on 09/20/2016 Interval history The patient has been extubated. His hemoglobin went up to 9.9 from 9.2 yesterday. White blood cell count is up a little bit as well. No complaints this morning but fairly sleepy. Physical exam The patient is afebrile with normal vital signs The left groin incision is clean with no infection. The OZ drain has serosanguineous output. There is no left flank hematoma or bruising Chest is clear Heart is regular Labs Reviewed, as above Imaging Reviewed Assessment and plan Continue OZ drainage.
[2016-09-25] MEDS: methylPREDNISolone SOD SUC 40 MG/1 ML VIAL IV SCH ×2 (08:56→19:52)
[2016-09-25] MEDS: ASPIRIN CHEW 81 MG TABLET PO SCH (08:58)
[2016-09-25] MEDS: GABAPENTIN 600 MG TABLET PO SCH ×3 (08:59→20:01)
[2016-09-25] MEDS: AMIODARONE 200 MG TABLET PO SCH ×2 (08:59→20:02)
[2016-09-25] MEDS: CARVEDILOL 25 MG TABLET PO SCH ×2 (08:59→20:02)
[2016-09-25] MEDS: TAMSULOSIN 0.4 MG CAPSULE PO SCH (08:59)
[2016-09-25] MEDS: DILTIAZEM 60 MG TABLET PO SCH ×4 (08:59→20:00)
[2016-09-25] MEDS: DESITIN 4OZ/NYSTATIN 15 GRAM MIXTURE PASTE TOP SCH ×2 (09:00→20:02)
[2016-09-25] MEDS: DEXMEDETOMIDINE 200 MCG in SODIUM CHLORIDE 0.9% 48 ML IV SCH (09:00)
--- NOTE | 2016-09-25 09:38 | Cardiology Progress Note ---
Cardiology - PN: Subj Interval history: Cardiology note Day 5 status post circumflex stent complicated by retroperitoneal bleed Status post repair bleeding left external iliac artery and evacuation hematoma Dr. العراقي Recurrent paroxysmal atrial fibrillation converted with IV amiodarone Extubated Lethargic but responsive. Has been on [place]. Patient is mentally challenged Telemetry shows sinus rhythm in the 90s O2 sat 98% 2 L Blood pressure 170/80 Regular rhythm no gallop Decreased breath sounds fairly clear Bilateral carotid bruits Abdomen soft benign No leg edema Lab data today White count 12.9 hemoglobin 9.9 hematocrit 29.3 Sodium 143 potassium 3.6 chloride 106 CO2 29 BUN 12 creatinine 0.60 Glucose 176 magnesium 2.1 Impression Status post circumflex stent with occluded mid right coronary and EF 45% with inferobasal akinesis Status post retroperitoneal bleed with emergent surgery and repair of bleeding left external iliac artery Status post endovascular AAA repair [address] Norberto Black Status post repair type III endoleak with extension of bilateral iliac artery stents by Dr. Alvarez 1 month ago Active smoker Recurrent paroxysmal atrial fibrillation COPD Severe bilateral carotid artery stenosis by recent CTA Plan Continue amiodarone 200 mg twice daily Coreg 25 mg twice daily Continue Cardizem 60 mg 4 times daily Losartan 50 mg daily Labs in a.m. Exam (Progress Note) - Constitutional Vitals: Period Temp Pulse Resp BP Sys/Go Pulse Ox Last 24 Hr 97.8 F-98.3 F 69-92 15-21 161-188/60-76 94-100 Result/EKG - Labs CBC & BMP: 09/25/16 06:32 09/25/16 06:32 Labs: Laboratory Results - last 24 hr 09/24/16 09/24/16 09/24/16 08:50 11:30 12:35 WBC RBC Hgb Hct MCV MCH MCHC RDW Plt Count MPV Neut % (Auto) Lymph % (Auto) [place] % (Auto) Eos % (Auto) Baso % (Auto) Neut # (Auto) Lymph # (Auto) [place] # (Auto) Eos # (Auto) Baso # (Auto) Total Counted Immature Gran % Nucleated RBC % Immature Gran # Segmented Neutrophils Band Neutrophils Lymphocytes Monocytes Nucleated RBCs # Hypochromasia Microcytosis Morphology Comment ABG pH 7.452 H 7.439 ABG pCO2 41.0 41.4 ABG pO2 93.3 128.0 H ABG HCO3 28.3 H 27.6 H ABG Total CO2 26.2 25.1 ABG O2 Saturation 98.1 99.3 ABG Base Excess 4.3 H 3.6 H Sodium Potassium Chloride Carbon Dioxide Anion Gap BUN Creatinine GFR Calculation BUN/Creatinine Ratio Glucose POC Glucose 154 H Calculated Osmolality Calcium Magnesium 09/24/16 09/25/16 09/25/16 17:53 00:24 05:30 WBC RBC Hgb Hct MCV MCH MCHC RDW Plt Count MPV Neut % (Auto) Lymph % (Auto) [place] % (Auto) Eos % (Auto) Baso % (Auto) Neut # (Auto) Lymph # (Auto) [place] # (Auto) Eos # (Auto) Baso # (Auto) Total Counted Immature Gran % Nucleated RBC % Immature Gran # Segmented Neutrophils Band Neutrophils Lymphocytes Monocytes Nucleated RBCs # Hypochromasia Microcytosis Morphology Comment ABG pH ABG pCO2 ABG pO2 ABG HCO3 ABG Total CO2 ABG O2 Saturation ABG Base Excess Sodium Potassium Chloride Carbon Dioxide Anion Gap BUN Creatinine GFR Calculation BUN/Creatinine Ratio Glucose POC Glucose 157 H 189 H 176 H Calculated Osmolality Calcium Magnesium 09/25/16 09/25/16 06:32 06:32 WBC 12.9 H RBC 3.36 L Hgb 9.9 L Hct 29.3 L MCV 87.2 MCH 30 MCHC 33.8 RDW 15.4 Plt Count 200 D MPV 9.6 Neut % (Auto) 89.9 H Lymph % (Auto) 3.6 L [place] % (Auto) 5.6 Eos % (Auto) 0.0 Baso % (Auto) 0.1 Neut # (Auto) 11.6 H Lymph # (Auto) 0.5 L [place] # (Auto) 0.7 Eos # (Auto) 0.0 Baso # (Auto) 0.0 Total Counted 100 Immature Gran % 0.8 Nucleated RBC % 0.0 Immature Gran # 0.10 Segmented Neutrophils 91 H Band Neutrophils 3 Lymphocytes 2 L Monocytes 4 Nucleated RBCs # 0.00 Hypochromasia 1+ Microcytosis 1+ Morphology Comment ABG pH ABG pCO2 ABG pO2 ABG HCO3 ABG Total CO2 ABG O2 Saturation ABG Base Excess Sodium 143 Potassium 3.6 Chloride 106 Carbon Dioxide 29 Anion Gap 11.6 BUN 12 Creatinine 0.60 L GFR Calculation 128 BUN/Creatinine Ratio 20.00 Glucose 147 H POC Glucose Calculated Osmolality 287.0 Calcium 7.9 L Magnesium 2.1 Quality Measures - VTE Contraindication to Pharmacological VTE Prophylaxis: Active Bleeding Specialty Discharge - Follow Up or Referrals
[2016-09-25] MEDS ORDERED: HEPARIN/NACL 0.9% 2 UNITS/ML 500 ML IV ONE (10:07)
[2016-09-25] MEDS: LOSARTAN 50 MG TABLET PO SCH (12:31)
[2016-09-25] MEDS: cloNIDine 0.1 MG TABLET PO PRN (15:17)
[2016-09-25] MEDS: ACETAMINOPHEN/CODEINE 300-30 MG TABLET PO PRN (17:57)
[2016-09-25] MEDS: PHENYLEPHRINE DRIP 40 MG/250 ML PREMIX IV SCH (19:04)
[2016-09-25] MEDS: ROSUVASTATIN 20 MG TABLET PO SCH (20:02)
[2016-09-26] MEDS: INSULIN REGULAR 100 UNIT/ML SUBCUT SCH ×4 (00:42→18:29)
[2016-09-26] MEDS: PIPERACILLIN/TAZOBACTAM 3,375 MG in SODIUM CHLORIDE 0.9% 100 ML IV SCH ×3 (00:55→16:24)
[2016-09-26] MEDS: LORazepam 2 MG/1 ML VIAL IV PRN ×2 (02:08→10:05)
[2016-09-26 05:06] LABS: Basophils % 0.1 % (0.0-0.8); Hematocrit 29.2 VOL% (42.0-52.0); Hemoglobin 9.9 GM/DL (14.0-18.0); Immature Granulocytes % 0.9 %; Immature Granulocytes Absolute 0.13 #; Lymphocytes # 0.5 10*3/uL (1.4-4.0); Lymphocytes % 3.5 % (21.2-54.2); Mean Corpuscular HGB Conc 33.9 GM/DL (32-36); Mean Corpuscular Hemoglobin 30 PG (27-34); Mean Platelet Volume 9.2 FL (9.6-12.0); Monocytes # 1.3 10*3/uL (0.11-0.8); Monocytes % 8.3 % (1.7-12.7); NRBC # 0.02 10*3/uL; Neutrophils # 13.2 10*3/uL (1.4-7.4); Neutrophils % 87.2 % (38.7-73.9); Platelet Count 227 T/CUMM (130-400); Red Blood Count 3.32 MC/CUMM (3.8-5.5); Red Cell Distribution Width 15.3 % (9.3-17.3); White Blood Count 15.1 T/CUMM (4-12)
[2016-09-26] MEDS: SODIUM ACETATE 50 MEQ in DEXTROSE 5% NACL 0.45% 1,000 ML IV SCH (05:15)
[2016-09-26 05:59] LABS: Calcium 7.7 MG/DL (8.5-10.1); Magnesium 2.1 MG/DL (1.8-2.4); Osmolality,Calculated 286.3 MOS/KG (273-304); Potassium 3.9 MMOL/L (3.5-5.1); Prealbumin 13.1 MG/DL (20-40)
[2016-09-26 06:40] LABS: Hypochromasia Slight; Lymphocytes 3 % (20-55); Microcytosis 1+; Platelet Estimate Adequate; Segmented Neutrophils 90 % (50-85); Total Cells Counted 100
--- NOTE | 2016-09-26 09:03 | Pulmonology Progress Note ---
Pulmonary - PN: Subj Interval history: This 66-year-old white male had bleeding complications following her cardiac catheterization yesterday. He required surgery to control the bleeding. He is on the ventilator. He has a persistent metabolic acidosis although it is not quite as bad as last night. His creatinine has come up to 2.5. Chest x-ray looks good. His urine output is low. We need renal to see him. He is not ready for weaning until acidosis can be controlled. He is getting sodium acetate in IV fluids, the hospital does not have bicarb. 09/22/2016 patient is responsive when propofol is held. ABGs are better. PH up to 7.30. Will start weaning trials. His hematocrit was reported as 21. That is being rechecked. He may require some old blood. 09/23/2016 patient did a CPAP yesterday but became tachycardic and they were stopped. Will resume weaning trials today. 09/24/2016 patient's ABGs look better with acidosis corrected. Will reduce IV acetate. Will try again on CPAP today. Patient does get anxious. I will try changing him to Precedex instead of propofol so that we can continue that while he is completing his trials. Has been slight interstitial infiltrate on x-ray. Afebrile no other new problems. Hematocrit is 27 09/25/2016 we were able to get him extubated yesterday. His speech is a little slow today. We are reviewing his medications and he is getting a good bit of [place]. We will reduce that dose. Apparently he was on that 3 times a day prior to admission. His ABGs have looked good post extubation. 09/26/2016 patient is talking and making sense. He is wanting to go home. He is a bit confused still. O2 sat 98% on 3 L. Hematocrit stable at 29. Probably could be moved to the floor. Stable from pulmonary standpoint Exam (Progress Note) - Constitutional Vitals: Period Temp Pulse Resp BP Sys/Go Pulse Ox Last 24 Hr 98.2 F-99.1 F 73-125 14-24 137-192/61-80 97-100 Exam: Patient responsive but his speech is slow. Vital signs normal. Pupils react to light. Now on nasal oxygen. Neck is supple. Hear minimal bruits over both carotids. Chest sounds clear equal breath sounds. He does have prolonged expiratory phase. Heart normal rate and rhythm no murmurs. Abdomen soft no masses. Extremities no clubbing cyanosis edema. Left foot is warm. He has a brace on his right leg. Bandage over the left inguinal area. Results - Labs CBC & BMP: 09/26/16 04:53 09/26/16 04:53 Lab Results: I have reviewed the past 24 hour labs Assessment and Plan (1) Left femoral artery bleed Status: Acute Assessment and plan: Patient had bleeding from the arterial puncture site in his left femoral region. Dr. Alvarez has repaired this. He had significant blood loss and transfusions. Presently sedated and on the ventilator and somewhat hypotensive. 09/21/2016 hematocrit is stable. 09/22/2016 hematocrit 21. Lab being rechecked to decide if he needs transfusion. 09/23/2016 hematocrit 23 after transfusion yesterday. Does not appear to be actively bleeding. 09/24/2016 no further bleeding. Hematocrit is 27. 09/25/2016 hematocrit 29 and stable. 09/26/2016 this was controlled with surgery. He has been transfused. Hematocrit has been stable for 3 days now. Current Visit: Yes (2) Metabolic acidosis Status: Acute Assessment and plan: We will give him some bicarbonate infusion to try to get his pH up to about 7.25. 09/21/2016 his metabolic acidosis is partially corrected. However his creatinine is up to 2.5. Urine output is low. We need nephrology to assist. 09/22/2016 pH is up to 7.3. Creatinine slightly low. Hopefully we can start weaning. 09/23/2016 metabolic acidosis is improved with bicarb level of 24 on chemistries. 09/24/2016 metabolic acidosis has been corrected. Hopefully can tolerate weaning trials. 09/25/2016 acidosis has been corrected. CO2 is 30 Current Visit: Yes (3) COPD (chronic obstructive pulmonary disease) Status: Acute Assessment and plan: He is not actively wheezing. We will not add bronchodilators as yet. May need to do this as time goes on. He has been given a good bit of fluid with this hypotension associated with the bleed. 09/21/2016 no active wheezing. Has slightly prolonged expiratory phase at most. Not able to wean until acidosis is improving. 09/22/2016 continuing bronchodilators. 09/23/2016 minimal rhonchi. Continuing bronchodilators. 09/24/2016 continuing bronchodilators. Will give short course of steroids. 09/25/2016 continuing bronchodilators. Brief dose of steroids. 09/26/2016 patient getting oxygen and bronchodilators. Will stop steroids. Current Visit: Yes (4) Acute respiratory failure Status: Acute Assessment and plan: ABGs acceptable except for metabolic acidosis. Adjusting vent settings. Will ventilate until stable enough to get off. 09/21/2016 continuing mechanical ventilation. Can start weaning until metabolic acidosis corrected. 09/22/2016 metabolic acidosis is at least partially corrected. Will start weaning trials. 09/23/2016 ABGs improved. Resume CPAP today as tolerated. Had episode of tachycardia during CPAP yesterday. 09/24/2016 this appears improved. Hopefully we can get him weaned over the next day or 2. 09/25/2016 patient was able to be extubated yesterday. Doing well off the ventilator. I am concerned a bit that his speech is a little slow. It may be due to his [place] dosing. We will reduce that to every 8 hours now Current Visit: Yes (5) Tobacco abuse Status: Acute Assessment and plan: This will course lead to increased risk atelectasis or pneumonia Current Visit: No (6) CAD (coronary artery disease) Status: Chronic Assessment and plan: Status post coronary stenting. 09/23/2016 no signs of heart failure. No complaints of pain when awake. 09/25/2016 does not appear to be in heart failure. Current Visit: No Qualifiers: Coronary Disease-Associated Artery/Lesion type: [place] artery [place] vs. transplanted heart: [place] heart Associated angina: without angina Qualified Code(s): I25.10 - Atherosclerotic heart disease of [place] coronary artery without angina pectoris Specialty Discharge - Follow Up or Referrals
[2016-09-26] MEDS: ASPIRIN CHEW 81 MG TABLET PO SCH (10:06)
[2016-09-26] MEDS: TAMSULOSIN 0.4 MG CAPSULE PO SCH (10:06)
[2016-09-26] MEDS: DILTIAZEM 60 MG TABLET PO SCH ×4 (10:06→21:09)
[2016-09-26] MEDS: GABAPENTIN 600 MG TABLET PO SCH ×3 (10:06→21:09)
[2016-09-26] MEDS: DESITIN 4OZ/NYSTATIN 15 GRAM MIXTURE PASTE TOP SCH ×2 (10:07→21:09)
[2016-09-26] MEDS: AMIODARONE 200 MG TABLET PO SCH ×2 (10:07→21:09)
[2016-09-26] MEDS: CARVEDILOL 25 MG TABLET PO SCH ×2 (10:07→21:10)
[2016-09-26] MEDS: LOSARTAN 50 MG TABLET PO SCH (10:08)
--- NOTE | 2016-09-26 10:33 | Cardiology Progress Note ---
Assessment and Plan - Time spent with patient Time spent with patient: Greater than 30 minutes Time spent discussing smoking cessation with patient: 3 to 10 minutes (1) Paroxysmal a-fib Status: Chronic Assessment and plan: SEE PLAN OF CARE LISTED BELOW Current Visit: Yes (2) Anemia Status: Acute Assessment and plan: SEE PLAN OF CARE LISTED BELOW Current Visit: Yes (3) PVD (peripheral vascular disease) Status: Chronic Assessment and plan: SEE PLAN OF CARE LISTED BELOW Current Visit: Yes (4) Presence of drug coated stent in left circumflex coronary artery Status: Chronic Assessment and plan: SEE PLAN OF CARE LISTED BELOW Current Visit: Yes (5) Dyslipidemia Status: Chronic Assessment and plan: SEE PLAN OF CARE LISTED BELOW Current Visit: Yes (6) COPD (chronic obstructive pulmonary disease) Status: Chronic Assessment and plan: SEE PLAN OF CARE LISTED BELOW Current Visit: Yes (7) Tobacco abuse Status: Acute Current Visit: No (8) CAD (coronary artery disease) Status: Chronic Assessment and plan: SEE PLAN OF CARE LISTED BELOW Current Visit: No Qualifiers: Coronary Disease-Associated Artery/Lesion type: [place] artery [place] vs. transplanted heart: [place] heart Associated angina: without angina Qualified Code(s): I25.10 - Atherosclerotic heart disease of [place] coronary artery without angina pectoris (9) History of AAA (abdominal aortic aneurysm) repair Status: Chronic Assessment and plan: SEE PLAN OF CARE LISTED BELOW Current Visit: No (10) Hypertension Status: Chronic Assessment and plan: SEE PLAN OF CARE LISTED BELOW Current Visit: No Cardiology - PN: Subj Interval history: `[employer] SAL[employer]: DR. GARZA SUMMARY: Mr. Adam, 66WM, was admitted for elective cardiac catheterization with a history of abnormal stress test. Patient was being risk stratified for upcoming carotid endarterectomy to be performed by Dr. العراقي. September 20, 2016 patient underwent cardiac catheterization requiring PCI to proximal circumflex ( RAMÍREZ), occluded RCA noted. EF 45% with basal mid inferior akinesis. Postoperatively, he developed large retro-peritoneal hematoma and was taken emergently to surgery by Dr. العراقي requiring repair left external iliac artery. He required pressors for several days and was extubated over the weekend. He has required several units of packed red blood cells. evening, September, patient began to have frothy pink colored stools in abundance. Monday morning his anemia worsened and he required additional transfusions of packed red blood cells at that time. His Effient was discontinued (last dose , September 22, 2016), and aspirin 81 mg orally daily continued. It was thought that his pink-colored stools may be related to an ischemic colitis due to hypoperfusion. He experienced atrial fibrillation with rapid ventricular response and required IV Amiodarone and is currently taking 200mg orally BID. He has remained in normal sinus rhythm all weekend. SEPTEMBER 26, 2016: Over the weekend, patient has been extubated, no additional rectal bleeding since early Monday morning. Anemia stable. Will introduce Plavix 75mg orally daily starting this morning and monitor anemia closely. Will introduce liquids today and potentially transfer to telemetry. Patient may need SWB at discharge and we will ask Case Management to assess for needs. WBCs increased to 43K immediately post surgery but then normalized. This morning, WBCs 15 K. Will check UA, add incentive spirometry, aggressive pulmonary toilet and BC x 2. Will further discuss with Dr. Billy and await additional recommendations. Assessing the patient, he does have symptoms of sleep apnea, holding his breath while sleeping. ASSESSMENT/PLAN: 1. CAD S/P PCI PROXIMAL CX - will start Plavix 75 mg orally daily starting today and monitor anemia. 2. RETROPERITONEAL HEMORRHAGE - stable status post emergent repair of left external iliac artery 3. ANEMIA - stable 4. HYPERTENSION -suboptimally controlled. Will increase ARB. Tolerating beta -yeimi, ARB, and lipid-lowering agent. Soon, will transition to long-acting calcium channel yeimi 5. DYSLIPIDEMIA - continue Crestor. Recent fasting lipid profile in clinic. 6. PAROXYSMAL ATRIAL FIBRILLATION WITH RVR - resolved. Currently taking Amiodarone 200 mg orally twice daily. Remains in normal sinus rhythm. 7. PVD -history of known bilateral carotid artery stenosis by recent CTA. Status post repair type III endoleak with extension of bilateral iliac artery stents by Dr. العراقي approximately 1 month ago. History of endovascular AAA repair [address] Norberto Black. 8. TOBACCOISM -the merits of tobacco cessation was thoroughly discussed for greater than 5 minutes 9. SLEEP DISORDER - concerning for sleep apnea. Will consider consult of Sleep Medicine at discharge. Exam (Progress Note) - Constitutional Vitals: Period Temp Pulse Resp BP Sys/Go Pulse Ox Last 24 Hr 98.2 F-99.1 F 73-125 14-24 137-195/61-84 97-100 Exam: General: [Awakes easily and cooperates. ] [Appears uncomfortable at times .] HEENT: [PERRL, normocephalic, atraumatic. Mucous membranes moist. No jaundice noted. Conjunctiva moist and clear, sclerae anicteric] Neck: No JVD/HJR, no thyromegaly or lymphadenopathy noted. No carotid bruit appreciated Cardiac: [Regular rate and rhythm.] [No obvious murmur, rub or gallop.] Lungs: [Relatively clear to auscultation without accessory muscle use to assist the respiratory pattern.] Oxygen in use via nasal cannula Abdomen: Soft, bowel sounds normoactive. Nontender and nondistended. No abdominal bruit or thrill noted. No masses noted. Left lower abdominal incision healing well without dehiscence or drainage. Musculoskeletal: No fluid collection. Decreased range of motion is noted. Extremities: No clubbing, cyanosis noted. [ No edema noted.] Upper extremity pulses 2+. Lower extremity pulses 2+. Capillary refill less than 3 seconds. Skin: No unusual lesions or rashes. No skin breakdown appreciated. Neuro: Awake, alert. Moves all extremities well without hemiparesis or paralysis. No essential tremor is appreciated. Result/EKG - Labs CBC & BMP: 09/26/16 04:53 09/26/16 04:53 Lab Results: I have reviewed the past 24 hour labs Labs: Laboratory Results - last 24 hr 09/25/16 09/25/16 09/26/16 11:15 18:13 00:29 WBC RBC Hgb Hct MCV MCH MCHC RDW Plt Count MPV Neut % (Auto) Lymph % (Auto) Petroleum % (Auto) Eos % (Auto) Baso % (Auto) Neut # (Auto) Lymph # (Auto) Petroleum # (Auto) Eos # (Auto) Baso # (Auto) Total Counted Immature Gran % Nucleated RBC % Immature Gran # Segmented Neutrophils Lymphocytes Monocytes Nucleated RBCs # Platelet Estimate Hypochromasia Microcytosis Sodium Potassium Chloride Carbon Dioxide Anion Gap BUN Creatinine GFR Calculation BUN/Creatinine Ratio Glucose POC Glucose 144 H 181 H 192 H Calculated Osmolality Calcium Magnesium Prealbumin 09/26/16 09/26/16 04:53 04:53 WBC 15.1 H RBC 3.32 L Hgb 9.9 L Hct 29.2 L MCV 88.0 MCH 30 MCHC 33.9 RDW 15.3 Plt Count 227 MPV 9.2 L Neut % (Auto) 87.2 H Lymph % (Auto) 3.5 L Petroleum % (Auto) 8.3 Eos % (Auto) 0.0 Baso % (Auto) 0.1 Neut # (Auto) 13.2 H Lymph # (Auto) 0.5 L Petroleum # (Auto) 1.3 H Eos # (Auto) 0.0 Baso # (Auto) 0.0 Total Counted 100 Immature Gran % 0.9 Nucleated RBC % 0.1 Immature Gran # 0.13 Segmented Neutrophils 90 H Lymphocytes 3 L Monocytes 7 Nucleated RBCs # 0.02 Platelet Estimate Adequate Hypochromasia Slight Microcytosis 1+ Sodium 141 Potassium 3.9 Chloride 105 Carbon Dioxide 30 Anion Gap 9.9 BUN 18 Creatinine 0.70 GFR Calculation 115 BUN/Creatinine Ratio 25.00 H Glucose 169 H POC Glucose Calculated Osmolality 286.3 Calcium 7.7 L Magnesium 2.1 Prealbumin 13.1 L - EKG EKG results: interpreted by me EKG shows: sinus rhythm Quality Measures - VTE Contraindication to Pharmacological VTE Prophylaxis: Active Bleeding Specialty Discharge - Follow Up or Referrals
[2016-09-26] MEDS: DEXMEDETOMIDINE 200 MCG in SODIUM CHLORIDE 0.9% 48 ML IV SCH (10:35)
[2016-09-26] MEDS: methylPREDNISolone SOD SUC 40 MG/1 ML VIAL IV SCH (10:35)
[2016-09-26] MEDS ORDERED: LOSARTAN 50 MG TABLET PO ONE (11:00)
--- NOTE | 2016-09-26 11:56 | Orthopedic Progress Note ---
Orthopedics - Subjective Interval history: Awake seems confused knee immobilizer had loosened and had to be refitted if there is a problem with the hinge nasal hinged knee brace staying in place and he can be fitted with a static knee immobilizer. With respect to PT mobilizing bed to chair is acceptable he is still essentially nonweightbearing on the right Exam - Constitutional Vitals: Period Temp Pulse Resp BP Sys/Go Pulse Ox Last 24 Hr 98.2 F-99.1 F 73-125 14-24 137-195/61-84 97-100 Results - Labs CBC & BMP: 09/26/16 04:53 09/26/16 04:53 Quality Measures - VTE Contraindication to Pharmacological VTE Prophylaxis: Active Bleeding Specialty Discharge - Follow Up or Referrals
[2016-09-26 12:10] LABS: Apearance,Urine CLEAR (Clear); Bilirubin,Urine Negative (Negative); Blood, Urine Moderate mg/dL (Negative); Glucose,Urine (UA) Negative (Negative); Ketones,Urine Negative (Negative); Mucus,Urine Occasional /LPF (Occasional); Nitrite,Urine Negative (Negative); Protein,Urine Negative; RBC,Urine 54 /HPF (0-4); Urine Color Straw (Yellow); Urine Specific Gravity 1.005 (1.001-1.035); Urine Urobilinogen < 2.0 EU/DL (0.2-1.0); WBC,Urine 1 /HPF (0-6)
[2016-09-26] MEDS: CLOPIDOGREL 75 MG TABLET PO SCH (13:23)
[2016-09-26] MEDS: ALBUTEROL 1.25 MG/3 ML NEB RESP TX SCH ×2 (15:35→19:28)
[2016-09-26] MEDS: cloNIDine 0.1 MG TABLET PO PRN (16:24)
--- NOTE | 2016-09-26 16:49 | Event Note ---
Mr. Spear is doing generally well with a stable hemoglobin and hematocrit his left side is without further hematoma good flow in the femoral artery the OZ is still putting out some fairly dark or bloody fluid and I would like to leave it at least 1 more day. I do note that is mentally intact but some slower and less animated than normal. Overall I think that we should consider left carotid endarterectomy perhaps in a month or 6 weeks when he has had better opportunity to more fully recover from this acute event
[2016-09-26] MEDS: ROSUVASTATIN 20 MG TABLET PO SCH (21:09)
[2016-09-27] MEDS: PIPERACILLIN/TAZOBACTAM 3,375 MG in SODIUM CHLORIDE 0.9% 100 ML IV SCH ×4 (00:01→23:58)
[2016-09-27] MEDS: ALBUTEROL 1.25 MG/3 ML NEB RESP TX SCH ×6 (00:05→19:55)
[2016-09-27] MEDS: INSULIN REGULAR 100 UNIT/ML SUBCUT SCH ×2 (00:08→06:31)
[2016-09-27 05:58] LABS: Basophils % 0.1 % (0.0-0.8); Eosinophils # 0.1 10*3/uL (0.0-0.87); Eosinophils % 0.5 % (0.00-10.9); Hematocrit 34.2 VOL% (42.0-52.0); Hemoglobin 11.2 GM/DL (14.0-18.0); Immature Granulocytes % 0.7 %; Lymphocytes # 1.6 10*3/uL (1.4-4.0); Lymphocytes % 10.5 % (21.2-54.2); Mean Corpuscular HGB Conc 32.7 GM/DL (32-36); Mean Corpuscular Hemoglobin 29 PG (27-34); Mean Corpuscular Volume 87.7 FL (87-102); Mean Platelet Volume 9.5 FL (9.6-12.0); Monocytes # 2.2 10*3/uL (0.11-0.8); Monocytes % 14.8 % (1.7-12.7); Neutrophils # 10.9 10*3/uL (1.4-7.4); Neutrophils % 73.4 % (38.7-73.9); Platelet Count 275 T/CUMM (130-400); Red Cell Distribution Width 15.5 % (9.3-17.3); White Blood Count 14.9 T/CUMM (4-12)
[2016-09-27 06:37] LABS: Calcium 8.1 MG/DL (8.5-10.1); Magnesium 2.4 MG/DL (1.8-2.4); Osmolality,Calculated 283.3 MOS/KG (273-304); Potassium 3.9 MMOL/L (3.5-5.1)
--- NOTE | 2016-09-27 07:03 | Pulmonology Progress Note ---
Pulmonary - PN: Subj Interval history: This 66-year-old white male had bleeding complications following her cardiac catheterization yesterday. He required surgery to control the bleeding. He is on the ventilator. He has a persistent metabolic acidosis although it is not quite as bad as last night. His creatinine has come up to 2.5. Chest x-ray looks good. His urine output is low. We need renal to see him. He is not ready for weaning until acidosis can be controlled. He is getting sodium acetate in IV fluids, the hospital does not have bicarb. 09/22/2016 patient is responsive when propofol is held. ABGs are better. PH up to 7.30. Will start weaning trials. His hematocrit was reported as 21. That is being rechecked. He may require some old blood. 09/23/2016 patient did a CPAP yesterday but became tachycardic and they were stopped. Will resume weaning trials today. 09/24/2016 patient's ABGs look better with acidosis corrected. Will reduce IV acetate. Will try again on CPAP today. Patient does get anxious. I will try changing him to Precedex instead of propofol so that we can continue that while he is completing his trials. Has been slight interstitial infiltrate on x-ray. Afebrile no other new problems. Hematocrit is 27 09/25/2016 we were able to get him extubated yesterday. His speech is a little slow today. We are reviewing his medications and he is getting a good bit of [place]. We will reduce that dose. Apparently he was on that 3 times a day prior to admission. His ABGs have looked good post extubation. 09/26/2016 patient is talking and making sense. He is wanting to go home. He is a bit confused still. O2 sat 98% on 3 L. Hematocrit stable at 29. Probably could be moved to the floor. Stable from pulmonary standpoint 09/27/2016 patient doing well with nasal oxygen. Renal function and hematocrit stable. Could go to the floor. Dr. العراقي has seen him and wants to consider left carotid surgery in 4-6 weeks. Exam (Progress Note) - Constitutional Vitals: Period Temp Pulse Resp BP Sys/Go Pulse Ox Last 24 Hr 96.7 F-98.9 F 63-97 13-25 138-195/57-90 94-100 Exam: Patient responsive but his speech is slow. Vital signs normal. Pupils react to light. Now on nasal oxygen. Neck is supple. Hear minimal bruits over both carotids. Chest sounds clear equal breath sounds. He does have prolonged expiratory phase. Heart normal rate and rhythm no murmurs. Abdomen soft no masses. Extremities no clubbing cyanosis edema. Left foot is warm. He has a brace on his right leg. Bandage over the left inguinal area. Little change from yesterday, but perhaps he is a little bit more with it mentally. Results - Labs CBC & BMP: 09/27/16 05:37 09/27/16 05:37 Lab Results: I have reviewed the past 24 hour labs Assessment and Plan (1) Left femoral artery bleed Status: Acute Assessment and plan: Patient had bleeding from the arterial puncture site in his left femoral region. Dr. Alvarez has repaired this. He had significant blood loss and transfusions. Presently sedated and on the ventilator and somewhat hypotensive. 09/21/2016 hematocrit is stable. 09/22/2016 hematocrit 21. Lab being rechecked to decide if he needs transfusion. 09/23/2016 hematocrit 23 after transfusion yesterday. Does not appear to be actively bleeding. 09/24/2016 no further bleeding. Hematocrit is 27. 09/25/2016 hematocrit 29 and stable. 09/26/2016 this was controlled with surgery. He has been transfused. Hematocrit has been stable for 3 days now. 09/27/2016 no further bleeding. Being followed by Dr. العراقي. Current Visit: Yes (2) Metabolic acidosis Status: Acute Assessment and plan: We will give him some bicarbonate infusion to try to get his pH up to about 7.25. 09/21/2016 his metabolic acidosis is partially corrected. However his creatinine is up to 2.5. Urine output is low. We need nephrology to assist. 09/22/2016 pH is up to 7.3. Creatinine slightly low. Hopefully we can start weaning. 09/23/2016 metabolic acidosis is improved with bicarb level of 24 on chemistries. 09/24/2016 metabolic acidosis has been corrected. Hopefully can tolerate weaning trials. 09/25/2016 acidosis has been corrected. CO2 is 30 09/27/2016 CO2 is 27. Acidosis corrected. Current Visit: Yes (3) COPD (chronic obstructive pulmonary disease) Status: Chronic Assessment and plan: He is not actively wheezing. We will not add bronchodilators as yet. May need to do this as time goes on. He has been given a good bit of fluid with this hypotension associated with the bleed. 09/21/2016 no active wheezing. Has slightly prolonged expiratory phase at most. Not able to wean until acidosis is improving. 09/22/2016 continuing bronchodilators. 09/23/2016 minimal rhonchi. Continuing bronchodilators. 09/24/2016 continuing bronchodilators. Will give short course of steroids. 09/25/2016 continuing bronchodilators. Brief dose of steroids. 09/26/2016 patient getting oxygen and bronchodilators. Will stop steroids. 09/27/2016 chest sounds good. Stable off steroids. Continuing to get bronchodilators as needed. Current Visit: Yes (4) Acute respiratory failure Status: Resolved Assessment and plan: ABGs acceptable except for metabolic acidosis. Adjusting vent settings. Will ventilate until stable enough to get off. 09/21/2016 continuing mechanical ventilation. Can start weaning until metabolic acidosis corrected. 09/22/2016 metabolic acidosis is at least partially corrected. Will start weaning trials. 09/23/2016 ABGs improved. Resume CPAP today as tolerated. Had episode of tachycardia during CPAP yesterday. 09/24/2016 this appears improved. Hopefully we can get him weaned over the next day or 2. 09/25/2016 patient was able to be extubated yesterday. Doing well off the ventilator. I am concerned a bit that his speech is a little slow. It may be due to his Craw[place] dosing. We will reduce that to every 8 hours now 09/27/2016 this has resolved except for still requiring some oxygen. Current Visit: Yes (5) Tobacco abuse Status: Chronic Assessment and plan: This will course lead to increased risk atelectasis or pneumonia 09/27/2016 this needs to be addressed long-term. Current Visit: No (6) CAD (coronary artery disease) Status: Chronic Assessment and plan: Status post coronary stenting. 09/23/2016 no signs of heart failure. No complaints of pain when awake. 09/25/2016 does not appear to be in heart failure. Current Visit: No Qualifiers: Coronary Disease-Associated Artery/Lesion type: [place] artery [place] vs. transplanted heart: [place] heart Associated angina: without angina Qualified Code(s): I25.10 - Atherosclerotic heart disease of [place] coronary artery without angina pectoris Specialty Discharge - Follow Up or Referrals
[2016-09-27] MEDS: LORazepam 2 MG/1 ML VIAL IV PRN (07:55)
[2016-09-27] MEDS: TAMSULOSIN 0.4 MG CAPSULE PO SCH (08:01)
[2016-09-27] MEDS: ASPIRIN CHEW 81 MG TABLET PO SCH (08:01)
[2016-09-27] MEDS: GABAPENTIN 600 MG TABLET PO SCH ×3 (08:01→21:49)
[2016-09-27] MEDS: LOSARTAN 50 MG TABLET PO SCH (08:01)
[2016-09-27] MEDS: CLOPIDOGREL 75 MG TABLET PO SCH (08:01)
[2016-09-27] MEDS: DILTIAZEM 60 MG TABLET PO SCH ×4 (08:02→21:49)
[2016-09-27] MEDS: CARVEDILOL 25 MG TABLET PO SCH ×2 (08:02→21:49)
[2016-09-27] MEDS: AMIODARONE 200 MG TABLET PO SCH ×2 (08:03→21:49)
[2016-09-27] MEDS: DESITIN 4OZ/NYSTATIN 15 GRAM MIXTURE PASTE TOP SCH ×2 (08:04→21:49)
--- NOTE | 2016-09-27 08:27 | Event Note ---
Mr. Spear is close to baseline mentally he is does speak smoke more slowly than normal though. Still got good bit of old dark bloody fluid I think I will leave the OZ in for a while longer otherwise he can be up out of the bed moving about and could be transferred upstairs from my standpoint
--- NOTE | 2016-09-27 08:39 | Cardiology Progress Note ---
Assessment and Plan - Time spent with patient Time spent with patient: Greater than 30 minutes Time spent discussing smoking cessation with patient: 3 to 10 minutes (1) Paroxysmal a-fib Status: Chronic Assessment and plan: SEE PLAN OF CARE LISTED BELOW Current Visit: Yes (2) Anemia Status: Acute Assessment and plan: SEE PLAN OF CARE LISTED BELOW Current Visit: Yes (3) PVD (peripheral vascular disease) Status: Chronic Assessment and plan: SEE PLAN OF CARE LISTED BELOW Current Visit: Yes (4) Presence of drug coated stent in left circumflex coronary artery Status: Chronic Assessment and plan: SEE PLAN OF CARE LISTED BELOW Current Visit: Yes (5) Dyslipidemia Status: Chronic Assessment and plan: SEE PLAN OF CARE LISTED BELOW Current Visit: Yes (6) COPD (chronic obstructive pulmonary disease) Status: Chronic Assessment and plan: SEE PLAN OF CARE LISTED BELOW Current Visit: Yes (7) Tobacco abuse Status: Chronic Current Visit: No (8) CAD (coronary artery disease) Status: Chronic Assessment and plan: SEE PLAN OF CARE LISTED BELOW Current Visit: No Qualifiers: Coronary Disease-Associated Artery/Lesion type: [place] artery [place] vs. transplanted heart: [place] heart Associated angina: without angina Qualified Code(s): I25.10 - Atherosclerotic heart disease of [place] coronary artery without angina pectoris (9) History of AAA (abdominal aortic aneurysm) repair Status: Chronic Assessment and plan: SEE PLAN OF CARE LISTED BELOW Current Visit: No (10) Hypertension Status: Chronic Assessment and plan: SEE PLAN OF CARE LISTED BELOW Current Visit: No Cardiology - PN: Subj Interval history: TURNER IN: DR. GARZA SUMMARY: Mr. Adam, 66WM, was admitted for elective cardiac catheterization with a history of abnormal stress test. Patient was being risk stratified for upcoming carotid endarterectomy to be performed by Dr. العراقي. September 20, 2016 patient underwent cardiac catheterization requiring PCI to proximal circumflex ( RAMÍREZ), occluded RCA noted. EF 45% with basal mid inferior akinesis. Postoperatively, he developed large retro-peritoneal hematoma and was taken emergently to surgery by Dr. العراقي requiring repair left external iliac artery. He required pressors for several days and was extubated over the weekend. He has required several units of packed red blood cells. evening, September, patient began to have frothy pink colored stools in abundance. Monday morning his anemia worsened and he required additional transfusions of packed red blood cells at that time. His Effient was discontinued (last dose , September 22, 2016), and aspirin 81 mg orally daily continued. It was thought that his pink-colored stools may be related to an ischemic colitis due to hypoperfusion. He experienced atrial fibrillation with rapid ventricular response and required IV Amiodarone and is currently taking 200mg orally BID. He has remained in normal sinus rhythm all weekend. SEPTEMBER 26, 2016: Over the weekend, patient has been extubated, no additional rectal bleeding since early Monday morning. Anemia stable. Will introduce Plavix 75mg orally daily starting this morning and monitor anemia closely. Will introduce liquids today and potentially transfer to telemetry. Patient may need SWB at discharge and we will ask Case Management to assess for needs. WBCs increased to 43K immediately post surgery but then normalized. This morning, WBCs 15 K. Will check UA, add incentive spirometry, aggressive pulmonary toilet and BC x 2. Will further discuss with Dr. Billy and await additional recommendations. Assessing the patient, he does have symptoms of sleep apnea, holding his breath while sleeping. SEPTEMBER 27, 2016: Overnight, Mr. Spear looks much better. He wakes easily, is pleasant and not confused. He remains in normal sinus rhythm. Blood pressure is elevated and this morning he will receive a higher dose of Cozaar. I will follow back this afternoon and check his blood pressure. May need additional adjustments in antihypertensives for better blood pressure control. Today, transfer to telemetry. We will ask case management to verify that he is being evaluated for swing bed or LTAC. Physical therapy and occupational therapy have been asked to evaluate and make additional recommendations. We will continue amiodarone 200 mg orally twice daily until October 01, 2016. If he remains in normal sinus rhythm at that time, will decrease to once daily. Labs are stable. Plavix has been initiated and will continue to follow his hemoglobin hematocrit daily. ASSESSMENT/PLAN: 1. CAD S/P PCI PROXIMAL CX - continue Plavix, monitoring labs daily. 2. RETROPERITONEAL HEMORRHAGE - stable status post emergent repair of left external iliac artery 3. ANEMIA - stable. We will continue to follow 4. HYPERTENSION - suboptimally controlled. Will increase ARB. Tolerating beta-yeimi, ARB, and lipid-lowering agent. Soon, will transition to long- acting calcium channel yeimi. Will reevaluate blood pressure this afternoon after he receives a higher ARB this morning. 5. DYSLIPIDEMIA - continue Crestor. Recent fasting lipid profile in clinic. 6. PAROXYSMAL ATRIAL FIBRILLATION WITH RVR - resolved. Currently taking Amiodarone 200 mg orally twice daily. Remains in normal sinus rhythm. Decrease Amiodarone to 200 mg orally daily October 01, 2016. 7. PVD - history of known bilateral carotid artery stenosis by recent CTA. Status post repair type III endoleak with extension of bilateral iliac artery stents by Dr. العراقي approximately 1 month ago. History of endovascular AAA repair [address] Norberto Black. Will need carotid endarterectomy eventually. Plan to move him to a swing bed facility and let him recover from these recent events. He may be considered a better candidate in approximately 4-6 weeks. 8. TOBACCOISM - the merits of tobacco cessation was thoroughly discussed for greater than 5 minutes 9. SLEEP DISORDER - concerning for sleep apnea. Will consider consult of Sleep Medicine at discharge. Exam (Progress Note) - Constitutional Vitals: Period Temp Pulse Resp BP Sys/Go Pulse Ox Last 24 Hr 96.7 F-98.9 F 63-97 13-25 138-195/57-90 94-100 Exam: General: [Awakes easily and cooperates. ] [Appears uncomfortable at times .] HEENT: [PERRL, normocephalic, atraumatic. Mucous membranes moist. No jaundice noted. Conjunctiva moist and clear, sclerae anicteric] Neck: No JVD/HJR, no thyromegaly or lymphadenopathy noted. No carotid bruit appreciated Cardiac: [Regular rate and rhythm.] [No obvious murmur, rub or gallop.] Lungs: [Relatively clear to auscultation without accessory muscle use to assist the respiratory pattern.] Not requiring oxygen. Abdomen: Soft, bowel sounds normoactive. Nontender and nondistended. No abdominal bruit or thrill noted. No masses noted. Left lower abdominal incision healing well without dehiscence or drainage. Musculoskeletal: No fluid collection. Decreased range of motion is noted. Extremities: No clubbing, cyanosis noted. [ No edema noted.] Upper extremity pulses 2+. Lower extremity pulses 2+. Capillary refill less than 3 seconds. Skin: No unusual lesions or rashes. No skin breakdown appreciated. Neuro: Awake, alert. Moves all extremities well without hemiparesis or paralysis. No essential tremor is appreciated. Result/EKG - Labs CBC & BMP: 09/27/16 05:37 09/27/16 05:37 Lab Results: I have reviewed the past 24 hour labs Labs: Laboratory Results - last 24 hr 09/26/16 09/26/16 09/26/16 11:55 11:56 17:53 WBC RBC Hgb Hct MCV MCH MCHC RDW Plt Count MPV Neut % (Auto) Lymph % (Auto) [place] % (Auto) Eos % (Auto) Baso % (Auto) Neut # (Auto) Lymph # (Auto) [place] # (Auto) Eos # (Auto) Baso # (Auto) Immature Gran % Nucleated RBC % Immature Gran # Nucleated RBCs # Sodium Potassium Chloride Carbon Dioxide Anion Gap BUN Creatinine GFR Calculation BUN/Creatinine Ratio Glucose POC Glucose 145 H 149 H Calculated Osmolality Calcium Magnesium Urine Color Straw Urine Appearance Clear Urine pH 8.0 Ur Specific [place] 1.005 Urine Protein Negative Urine Glucose (UA) Negative Urine Ketones Negative Urine Blood Moderate Urine Nitrate Negative Urine Bilirubin Negative Urine Urobilinogen < 2.0 H Urine Leukocytes Negative Urine RBC 54 Urine WBC 1 Urine Mucus Occasional Ur Culture Indicated? Not indicated 09/27/16 09/27/16 09/27/16 00:06 05:37 05:37 WBC 14.9 H RBC 3.90 Hgb 11.2 L Hct 34.2 L MCV 87.7 MCH 29 MCHC 32.7 RDW 15.5 Plt Count 275 D MPV 9.5 L Neut % (Auto) 73.4 Lymph % (Auto) 10.5 L [place] % (Auto) 14.8 H Eos % (Auto) 0.5 Baso % (Auto) 0.1 Neut # (Auto) 10.9 H Lymph # (Auto) 1.6 [place] # (Auto) 2.2 H Eos # (Auto) 0.1 Baso # (Auto) 0.0 Immature Gran % 0.7 Nucleated RBC % 0.0 Immature Gran # 0.10 Nucleated RBCs # 0.00 Sodium 141 Potassium 3.9 Chloride 104 Carbon Dioxide 27 Anion Gap 13.9 BUN 20 H Creatinine 0.70 GFR Calculation 114 BUN/Creatinine Ratio 28.00 H Glucose 92 POC Glucose 116 H Calculated Osmolality 283.3 Calcium 8.1 L Magnesium 2.4 Urine Color Urine Appearance Urine pH Ur Specific [place] Urine Protein Urine Glucose (UA) Urine Ketones Urine Blood Urine Nitrate Urine Bilirubin Urine Urobilinogen Urine Leukocytes Urine RBC Urine WBC Urine Mucus Ur Culture Indicated? 09/27/16 06:18 WBC RBC Hgb Hct MCV MCH MCHC RDW Plt Count MPV Neut % (Auto) Lymph % (Auto) [place] % (Auto) Eos % (Auto) Baso % (Auto) Neut # (Auto) Lymph # (Auto) [place] # (Auto) Eos # (Auto) Baso # (Auto) Immature Gran % Nucleated RBC % Immature Gran # Nucleated RBCs # Sodium Potassium Chloride Carbon Dioxide Anion Gap BUN Creatinine GFR Calculation BUN/Creatinine Ratio Glucose POC Glucose 98 Calculated Osmolality Calcium Magnesium Urine Color Urine Appearance Urine pH Ur Specific [place] Urine Protein Urine Glucose (UA) Urine Ketones Urine Blood Urine Nitrate Urine Bilirubin Urine Urobilinogen Urine Leukocytes Urine RBC Urine WBC Urine Mucus Ur Culture Indicated? - EKG EKG results: interpreted by me EKG shows: sinus rhythm Quality Measures - VTE Contraindication to Pharmacological VTE Prophylaxis: Active Bleeding Specialty Discharge - Follow Up or Referrals
--- NOTE | 2016-09-27 11:26 | Orthopedic Progress Note ---
Orthopedics - Subjective Interval history: No real change still confused I believe simply normal knee immobilizer will be better for him at this point given his confusion and weakness. We can then transition back to the hinged brace. Exam - Constitutional Vitals: Period Temp Pulse Resp BP Sys/Go Pulse Ox Last 24 Hr 96.7 F-98.9 F 63-86 13-25 138-189/57-90 94-100 Results - Labs CBC & BMP: 09/27/16 05:37 09/27/16 05:37 Quality Measures - VTE Contraindication to Pharmacological VTE Prophylaxis: Active Bleeding Specialty Discharge - Follow Up or Referrals
--- NOTE | 2016-09-27 13:20 | XRay Report ---
XR knee 2V RT Indication: Fracture follow-up Comparison: Right knee x-ray dated September 22, 2016 Technique: Frontal and lateral views of the right knee. Findings: Interval increased sclerosis within the known proximal tibial fracture with previously demonstrated lateral articular extension suggesting at least some healing. Fracture lines remain visible. Overall alignment appears similar to comparison study considering change in technique. Fracture remains mildly displaced with some mild foreshortening. IMPRESSION: As above. PROCEDURE INTERPRETED AT [facility] DEPARTMENT OF RADIOLOGY Final Report Signed by: Dr Jose D Abernathy
[2016-09-27] MEDS: ACETAMINOPHEN/CODEINE 300-30 MG TABLET PO PRN (21:48)
[2016-09-27] MEDS: ROSUVASTATIN 20 MG TABLET PO SCH (21:48)
[2016-09-28] MEDS: ALBUTEROL 1.25 MG/3 ML NEB RESP TX SCH ×7 (01:23→23:39)
--- NOTE | 2016-09-28 08:43 | Pulmonology Progress Note ---
Pulmonary - PN: Subj Interval history: This 66-year-old white male had bleeding complications following her cardiac catheterization yesterday. He required surgery to control the bleeding. He is on the ventilator. He has a persistent metabolic acidosis although it is not quite as bad as last night. His creatinine has come up to 2.5. Chest x-ray looks good. His urine output is low. We need renal to see him. He is not ready for weaning until acidosis can be controlled. He is getting sodium acetate in IV fluids, the hospital does not have bicarb. 09/22/2016 patient is responsive when propofol is held. ABGs are better. PH up to 7.30. Will start weaning trials. His hematocrit was reported as 21. That is being rechecked. He may require some old blood. 09/23/2016 patient did a CPAP yesterday but became tachycardic and they were stopped. Will resume weaning trials today. 09/24/2016 patient's ABGs look better with acidosis corrected. Will reduce IV acetate. Will try again on CPAP today. Patient does get anxious. I will try changing him to Precedex instead of propofol so that we can continue that while he is completing his trials. Has been slight interstitial infiltrate on x-ray. Afebrile no other new problems. Hematocrit is 27 09/25/2016 we were able to get him extubated yesterday. His speech is a little slow today. We are reviewing his medications and he is getting a good bit of Karth[place]. We will reduce that dose. Apparently he was on that 3 times a day prior to admission. His ABGs have looked good post extubation. 09/26/2016 patient is talking and making sense. He is wanting to go home. He is a bit confused still. O2 sat 98% on 3 L. Hematocrit stable at 29. Probably could be moved to the floor. Stable from pulmonary standpoint 09/27/2016 patient doing well with nasal oxygen. Renal function and hematocrit stable. Could go to the floor. Dr. العراقي has seen him and wants to consider left carotid surgery in 4-6 weeks. 09/28/2016 patient not wearing his oxygen much. Check room air oxygen. Probably can do without it. Stable from pulmonary standpoint although he probably does have some COPD. I will sign off. Please call if needed further. Exam (Progress Note) - Constitutional Vitals: Period Temp Pulse Resp BP Sys/Go Pulse Ox Last 24 Hr 97.2 F-101.1 F 65-84 16-22 114-160/59-84 92-100 Exam: Patient responsive. Vital signs normal. Pupils react to light. Neck is supple. Hear minimal bruits over both carotids. Chest sounds clear equal breath sounds. He does have prolonged expiratory phase. Heart normal rate and rhythm no murmurs. Abdomen soft no masses. Extremities no clubbing cyanosis edema. Left foot is warm. He has a brace on his right leg. Results - Labs CBC & BMP: 09/27/16 05:37 09/27/16 05:37 Lab Results: I have reviewed the past 24 hour labs Assessment and Plan (1) Left femoral artery bleed Status: Resolved Assessment and plan: Patient had bleeding from the arterial puncture site in his left femoral region. Dr. Alvarez has repaired this. He had significant blood loss and transfusions. Presently sedated and on the ventilator and somewhat hypotensive. 09/21/2016 hematocrit is stable. 09/22/2016 hematocrit 21. Lab being rechecked to decide if he needs transfusion. 09/23/2016 hematocrit 23 after transfusion yesterday. Does not appear to be actively bleeding. 09/24/2016 no further bleeding. Hematocrit is 27. 09/25/2016 hematocrit 29 and stable. 09/26/2016 this was controlled with surgery. He has been transfused. Hematocrit has been stable for 3 days now. 09/27/2016 no further bleeding. Being followed by Dr. العراقي. Current Visit: Yes (2) Metabolic acidosis Status: Resolved Assessment and plan: We will give him some bicarbonate infusion to try to get his pH up to about 7.25. 09/21/2016 his metabolic acidosis is partially corrected. However his creatinine is up to 2.5. Urine output is low. We need nephrology to assist. 09/22/2016 pH is up to 7.3. Creatinine slightly low. Hopefully we can start weaning. 09/23/2016 metabolic acidosis is improved with bicarb level of 24 on chemistries. 09/24/2016 metabolic acidosis has been corrected. Hopefully can tolerate weaning trials. 09/25/2016 acidosis has been corrected. CO2 is 30 09/27/2016 CO2 is 27. Acidosis corrected. 09/28/2016 this is corrected. Current Visit: Yes (3) COPD (chronic obstructive pulmonary disease) Status: Chronic Assessment and plan: He is not actively wheezing. We will not add bronchodilators as yet. May need to do this as time goes on. He has been given a good bit of fluid with this hypotension associated with the bleed. 09/21/2016 no active wheezing. Has slightly prolonged expiratory phase at most. Not able to wean until acidosis is improving. 09/22/2016 continuing bronchodilators. 09/23/2016 minimal rhonchi. Continuing bronchodilators. 09/24/2016 continuing bronchodilators. Will give short course of steroids. 09/25/2016 continuing bronchodilators. Brief dose of steroids. 09/26/2016 patient getting oxygen and bronchodilators. Will stop steroids. 09/27/2016 chest sounds good. Stable off steroids. Continuing to get bronchodilators as needed. 09/28/2016 can treat with as needed bronchodilators post discharge. Needs to stop smoking. Current Visit: Yes (4) Acute respiratory failure Status: Resolved Assessment and plan: ABGs acceptable except for metabolic acidosis. Adjusting vent settings. Will ventilate until stable enough to get off. 09/21/2016 continuing mechanical ventilation. Can start weaning until metabolic acidosis corrected. 09/22/2016 metabolic acidosis is at least partially corrected. Will start weaning trials. 09/23/2016 ABGs improved. Resume CPAP today as tolerated. Had episode of tachycardia during CPAP yesterday. 09/24/2016 this appears improved. Hopefully we can get him weaned over the next day or 2. 09/25/2016 patient was able to be extubated yesterday. Doing well off the ventilator. I am concerned a bit that his speech is a little slow. It may be due to his Karthaus dosing. We will reduce that to every 8 hours now 09/27/2016 this has resolved except for still requiring some oxygen. 09/28/2016 resolved. Current Visit: Yes (5) Tobacco abuse Status: Chronic Assessment and plan: This will course lead to increased risk atelectasis or pneumonia 09/27/2016 this needs to be addressed long-term. 09/28/2016 again advised to stop smoking. Current Visit: No (6) CAD (coronary artery disease) Status: Chronic Assessment and plan: Status post coronary stenting. 09/23/2016 no signs of heart failure. No complaints of pain when awake. 09/25/2016 does not appear to be in heart failure. Current Visit: No Qualifiers: Coronary Disease-Associated Artery/Lesion type: [place] artery [place] vs. transplanted heart: [place] heart Associated angina: without angina Qualified Code(s): I25.10 - Atherosclerotic heart disease of [place] coronary artery without angina pectoris Specialty Discharge - Follow Up or Referrals
--- NOTE | 2016-09-28 08:59 | Orthopedic Progress Note ---
Orthopedics - Subjective Interval history: X-rays satisfactory interval healing position satisfactory given nonoperative management. Will order knee immobilizer to be removed while in bed would use it while at mobilizing with therapy also can do some touchdown weightbearing if comfortable Exam - Constitutional Vitals: Period Temp Pulse Resp BP Sys/Go Pulse Ox Last 24 Hr 97.2 F-101.1 F 65-84 16-22 114-160/59-84 92-100 Results - Labs CBC & BMP: 09/27/16 05:37 09/27/16 05:37 Quality Measures - VTE Contraindication to Pharmacological VTE Prophylaxis: Active Bleeding Specialty Discharge - Follow Up or Referrals
[2016-09-28] MEDS: TAMSULOSIN 0.4 MG CAPSULE PO SCH (10:02)
[2016-09-28] MEDS: GABAPENTIN 600 MG TABLET PO SCH ×3 (10:02→21:08)
[2016-09-28] MEDS: DILTIAZEM 60 MG TABLET PO SCH ×4 (10:03→21:08)
[2016-09-28] MEDS: ASPIRIN CHEW 81 MG TABLET PO SCH (10:03)
[2016-09-28] MEDS: CLOPIDOGREL 75 MG TABLET PO SCH (10:03)
[2016-09-28] MEDS: AMIODARONE 200 MG TABLET PO SCH ×2 (10:03→21:08)
[2016-09-28] MEDS: LOSARTAN 50 MG TABLET PO SCH (10:03)
[2016-09-28] MEDS: CARVEDILOL 25 MG TABLET PO SCH ×2 (10:03→21:08)
[2016-09-28] MEDS: PIPERACILLIN/TAZOBACTAM 3,375 MG in SODIUM CHLORIDE 0.9% 100 ML IV SCH ×2 (10:04→17:18)
--- NOTE | 2016-09-28 11:32 | Event Note ---
Mr. Rainer jean is getting back toward his normal baseline still somewhat weak and vital signs look good his left inguinal incision is healing with no sign of infection the OZ drain still has a moderate amount of old dark bloody fluid and I think it would be best that we keep the drain in for now. From my standpoint he can be up and out of the bed and we could consider him moving to rehabilitation or swing bed appropriate my thoughts are that he can resume anticoagulant therapy as necessary for his coronary stenting and I would like to see him in approximately a month to discuss a left carotid endarterectomy
[2016-09-28] MEDS: DESITIN 4OZ/NYSTATIN 15 GRAM MIXTURE PASTE TOP SCH ×2 (14:29→21:09)
--- NOTE | 2016-09-28 15:03 | Cardiology Progress Note ---
Assessment and Plan (1) Atrial fibrillation with rapid ventricular response Status: Acute Assessment and plan: 66-year-old male, PAD, CAD, status post reflective circumflex PCI, complicated with retroperitoneal hematoma. PAF. R knee Fx. -Continue aspirin, Plavix, had recent PCI. Monitor for bleeding closely. -A. fib. Now in SR. Continue amiodarone. Currently, he is not a candidate for anticoagulation. -CAD, PAD. Continue statin. -Hypertension. BP well controlled. Continue beta-yeimi, ARB -Mental status improved. He was quite delirious -He will need to follow-up with Dr. العراقي, for the planned carotid surgery -LTAC placement is planned. Current Visit: No (2) History of AAA (abdominal aortic aneurysm) repair Status: Chronic Current Visit: No (3) Bilateral iliac artery stent placement Status: Acute Current Visit: No (4) Tobacco abuse Status: Chronic Current Visit: No (5) Elevated blood pressure reading Status: Acute Current Visit: No (6) Tibial plateau fracture, right Status: Acute Current Visit: No (7) Peripheral vascular disease Status: Acute Current Visit: No (8) Left carotid bruit Status: Acute Current Visit: No (9) Hypertension Status: Chronic Current Visit: No (10) Carotid artery bruit Status: Chronic Current Visit: No Cardiology - PN: Subj Interval history: Hematocrit was stable. He is afebrile. Blood pressure heart rate but the condyle. No recent atrial fibrillation. His mental status is clearing up. Exam (Progress Note) - Constitutional Vitals: Period Temp Pulse Resp BP Sys/Go Pulse Ox Last 24 Hr 99.0 F-101.1 F 65-90 16-22 114-160/59-84 90-99 General appearance: normal weight, no acute distress - Head Head exam: Present: normal inspection, normocephalic - Eye Eye exam: Absent: conjunctival injection Pupils: Absent: dilated - ENT ENT exam: Present: normal external ear exam - Neck Neck exam: Present: normal inspection - Respiratory Respiratory exam: Present: decreased breath sounds - Cardiovascular Cardiovascular exam: Present: regular rate and rhythm, systolic murmur - GI/Abdominal GI/Abdominal exam: Present: normal bowel sounds. Absent: distended - Extremities Exam Extremities exam: Present: normal inspection, normal capillary refill, edema (1+ ) - Neurological Exam Neurological exam: Present: alert - Psychiatric Psychiatric exam: Present: normal affect - Skin Skin exam: Present: normal color, warm, other (knee splint) Result/EKG - Labs CBC & BMP: 09/27/16 05:37 09/27/16 05:37 Lab Results: I have reviewed the past 24 hour labs - EKG EKG results: interpreted by me Quality Measures - VTE Contraindication to Pharmacological VTE Prophylaxis: Active Bleeding Specialty Discharge - Follow Up or Referrals
[2016-09-28] MEDS: ROSUVASTATIN 20 MG TABLET PO SCH (21:11)
[2016-09-29] MEDS: PIPERACILLIN/TAZOBACTAM 3,375 MG in SODIUM CHLORIDE 0.9% 100 ML IV SCH ×3 (00:30→16:10)
[2016-09-29] MEDS: ALBUTEROL 1.25 MG/3 ML NEB RESP TX SCH ×5 (04:15→20:27)
[2016-09-29] MEDS: DILTIAZEM 60 MG TABLET PO SCH ×4 (08:35→22:49)
[2016-09-29] MEDS: ASPIRIN CHEW 81 MG TABLET PO SCH (08:35)
[2016-09-29] MEDS: AMIODARONE 200 MG TABLET PO SCH (08:35)
[2016-09-29] MEDS: CARVEDILOL 25 MG TABLET PO SCH ×2 (08:35→22:49)
[2016-09-29] MEDS: LOSARTAN 50 MG TABLET PO SCH (08:35)
[2016-09-29] MEDS: DESITIN 4OZ/NYSTATIN 15 GRAM MIXTURE PASTE TOP SCH ×2 (08:36→22:49)
[2016-09-29] MEDS: GABAPENTIN 600 MG TABLET PO SCH ×3 (08:36→22:48)
[2016-09-29] MEDS: CLOPIDOGREL 75 MG TABLET PO SCH (08:36)
[2016-09-29] MEDS: TAMSULOSIN 0.4 MG CAPSULE PO SCH (08:36)
--- NOTE | 2016-09-29 12:17 | Orthopedic Progress Note ---
Orthopedics - Subjective Interval history: Much more alert tolerating knee immobilizer continue working towards mobilizing can even do some touchdown weightbearing Exam - Constitutional Vitals: Period Temp Pulse Resp BP Sys/Go Pulse Ox Last 24 Hr 97.6 F-99.6 F 64-98 17-21 92-121/53-67 90-99 Results - Labs CBC & BMP: 09/27/16 05:37 09/27/16 05:37 Quality Measures - VTE Contraindication to Pharmacological VTE Prophylaxis: Active Bleeding Specialty Discharge - Follow Up or Referrals
--- NOTE | 2016-09-29 14:04 | Event Note ---
Mr. Spear leg and foot are doing well his OZ drainage is essentially ceased and is leaking a bit around it. Will take the OZ out he can go ahead to swing bed which would be my preference to continue rehabilitation at any time. I would like to see him in office in approximately 3-4 weeks to consider setting up a left carotid endarterectomy
--- NOTE | 2016-09-29 14:35 | Event Note ---
Hopefully, patient will be transferring to a facility for continued rehabilitation today. No complaints. His vital signs are stable.
--- NOTE | 2016-09-29 16:10 | Cardiology Progress Note ---
Assessment and Plan - Time spent with patient Time spent with patient: Greater than 30 minutes (1) Paroxysmal a-fib Status: Chronic Assessment and plan: SEE PLAN OF CARE LISTED BELOW Current Visit: Yes (2) Anemia Status: Acute Assessment and plan: SEE PLAN OF CARE LISTED BELOW Current Visit: Yes (3) PVD (peripheral vascular disease) Status: Chronic Assessment and plan: SEE PLAN OF CARE LISTED BELOW Current Visit: Yes (4) Presence of drug coated stent in left circumflex coronary artery Status: Chronic Assessment and plan: SEE PLAN OF CARE LISTED BELOW Current Visit: Yes (5) Dyslipidemia Status: Chronic Assessment and plan: SEE PLAN OF CARE LISTED BELOW Current Visit: Yes (6) COPD (chronic obstructive pulmonary disease) Status: Chronic Assessment and plan: SEE PLAN OF CARE LISTED BELOW Current Visit: Yes (7) Tobacco abuse Status: Chronic Current Visit: No (8) CAD (coronary artery disease) Status: Chronic Assessment and plan: SEE PLAN OF CARE LISTED BELOW Current Visit: No Qualifiers: Coronary Disease-Associated Artery/Lesion type: [place] artery [place] vs. transplanted heart: [place] heart Associated angina: without angina Qualified Code(s): I25.10 - Atherosclerotic heart disease of [place] coronary artery without angina pectoris (9) History of AAA (abdominal aortic aneurysm) repair Status: Chronic Assessment and plan: SEE PLAN OF CARE LISTED BELOW Current Visit: No (10) Hypertension Status: Chronic Assessment and plan: SEE PLAN OF CARE LISTED BELOW Current Visit: No Cardiology - PN: Subj Interval history: AUCTION CLERK: DR. GARZA SUMMARY: Mr. Adam, 66WM, was admitted for elective cardiac catheterization with a history of abnormal stress test. Patient was being risk stratified for upcoming carotid endarterectomy to be performed by Dr. العراقي. September 20, 2016 patient underwent cardiac catheterization requiring PCI to proximal circumflex ( RAMÍREZ), occluded RCA noted. EF 45% with basal mid inferior akinesis. Postoperatively, he developed large retro-peritoneal hematoma and was taken emergently to surgery by Dr. العراقي requiring repair left external iliac artery. He required pressors for several days and was extubated over the weekend. He has required several units of packed red blood cells. evening, September, patient began to have frothy pink colored stools in abundance. Monday morning his anemia worsened and he required additional transfusions of packed red blood cells at that time. His Effient was discontinued (last dose September 22, 2016), and aspirin 81 mg orally daily continued. It was thought that his pink-colored stools may be related to an ischemic colitis due to hypoperfusion. He experienced atrial fibrillation with rapid ventricular response and required IV Amiodarone and is currently taking 200mg orally BID. He has remained in normal sinus rhythm all weekend. SEPTEMBER 26, 2016: Over the weekend, patient has been extubated, no additional rectal bleeding since early Monday morning. Anemia stable. Will introduce Plavix 75mg orally daily starting this morning and monitor anemia closely. Will introduce liquids today and potentially transfer to telemetry. Patient may need SWB at discharge and we will ask Case Management to assess for needs. WBCs increased to 43K immediately post surgery but then normalized. This morning, WBCs 15 K. Will check UA, add incentive spirometry, aggressive pulmonary toilet and BC x 2. Will further discuss with Dr. Billy and await additional recommendations. Assessing the patient, he does have symptoms of sleep apnea, holding his breath while sleeping. SEPTEMBER 27, 2016: Overnight, Mr. Spear looks much better. He wakes easily, is pleasant and not confused. He remains in normal sinus rhythm. Blood pressure is elevated and this morning he will receive a higher dose of Cozaar. I will follow back this afternoon and check his blood pressure. May need additional adjustments in antihypertensives for better blood pressure control. Today, transfer to telemetry. We will ask case management to verify that he is being evaluated for swing bed or LTAC. Physical therapy and occupational therapy have been asked to evaluate and make additional recommendations. We will continue amiodarone 200 mg orally twice daily until October 01, 2016. If he remains in normal sinus rhythm at that time, will decrease to once daily. Labs are stable. Plavix has been initiated and will continue to follow his hemoglobin hematocrit daily. SEPTEMBER 29, 2016: Mr. Spear continues to improve. He remains in normal sinus rhythm. Blood pressure better controlled today with a higher dose of Cozaar yesterday. He continues to take aspirin, beta-yeimi, ARB, Diltiazem, ARB and lipid-lowering agent. ASSESSMENT/PLAN: 1. CAD S/P PCI PROXIMAL CX - continue Plavix, monitoring labs daily. 2. RETROPERITONEAL HEMORRHAGE - stable status post emergent repair of left external iliac artery 3. ANEMIA - stable. We will continue to follow 4. HYPERTENSION -good control attained. Starting tomorrow, will transition to long-acting calcium channel yeimi. 5. DYSLIPIDEMIA - continue Crestor. Recent fasting lipid profile in clinic. 6. PAROXYSMAL ATRIAL FIBRILLATION WITH RVR - resolved. Currently taking Amiodarone 200 mg orally twice daily. Remains in normal sinus rhythm. Amiodarone has been scheduled to decrease to 200 mg daily beginning October 01, 2016. 7. PVD - history of known bilateral carotid artery stenosis by recent CTA. Status post repair type III endoleak with extension of bilateral iliac artery stents by Dr. العراقي approximately 1 month ago. History of endovascular AAA repair [address] Norberto Black. Will need carotid endarterectomy eventually. Plan to move him to a swing bed facility and let him recover from these recent events. He may be considered a better candidate in approximately 4-6 weeks. 8. TOBACCOISM - the merits of tobacco cessation was thoroughly discussed for greater than 5 minutes 9. SLEEP DISORDER - concerning for sleep apnea. Will consider consult of Sleep Medicine at discharge. Exam (Progress Note) - Constitutional Vitals: Period Temp Pulse Resp BP Sys/Go Pulse Ox Last 24 Hr 97.6 F-99.2 F 64-98 18-21 96-124/53-70 90-99 Exam: General: [Awakes easily and cooperates. ] [Appears uncomfortable at times .] HEENT: [PERRL, normocephalic, atraumatic. Mucous membranes moist. No jaundice noted. Conjunctiva moist and clear, sclerae anicteric] Neck: No JVD/HJR, no thyromegaly or lymphadenopathy noted. No carotid bruit appreciated Cardiac: [Regular rate and rhythm.] [No obvious murmur, rub or gallop.] Lungs: [Relatively clear to auscultation without accessory muscle use to assist the respiratory pattern.] Not requiring oxygen. Abdomen: Soft, bowel sounds normoactive. Nontender and nondistended. No abdominal bruit or thrill noted. No masses noted. Left lower abdominal incision healing well without dehiscence or drainage. Musculoskeletal: No fluid collection. Decreased range of motion is noted. Extremities: No clubbing, cyanosis noted. [ No edema noted.] Upper extremity pulses 2+. Lower extremity pulses 2+. Capillary refill less than 3 seconds. Skin: No unusual lesions or rashes. No skin breakdown appreciated. Neuro: Awake, alert. Moves all extremities well without hemiparesis or paralysis. No essential tremor is appreciated. Result/EKG - Labs CBC & BMP: 09/27/16 05:37 09/27/16 05:37 Lab Results: I have reviewed the past 24 hour labs - EKG EKG results: interpreted by me EKG shows: sinus rhythm Quality Measures - VTE Contraindication to Pharmacological VTE Prophylaxis: Active Bleeding Specialty Discharge - Follow Up or Referrals Follow up with: Ramon العراقي MD [Physician] - 10/31/16 2:15 pm (4weeks)
[2016-09-29] MEDS: ZALEPLON 5 MG CAPSULE PO PRN (22:48)
[2016-09-29] MEDS: ACETAMINOPHEN/CODEINE 300-30 MG TABLET PO PRN (22:49)
[2016-09-29] MEDS: ROSUVASTATIN 20 MG TABLET PO SCH (22:49)
[2016-09-30] MEDS: ALBUTEROL 1.25 MG/3 ML NEB RESP TX SCH ×4 (01:32→11:07)
[2016-09-30] MEDS: TAMSULOSIN 0.4 MG CAPSULE PO SCH (08:48)
[2016-09-30] MEDS: GABAPENTIN 600 MG TABLET PO SCH (08:48)
[2016-09-30] MEDS: CLOPIDOGREL 75 MG TABLET PO SCH (08:48)
[2016-09-30] MEDS: LOSARTAN 50 MG TABLET PO SCH (08:48)
[2016-09-30] MEDS: ASPIRIN CHEW 81 MG TABLET PO SCH (08:48)
[2016-09-30] MEDS: CARVEDILOL 25 MG TABLET PO SCH (08:49)
[2016-09-30] MEDS: DESITIN 4OZ/NYSTATIN 15 GRAM MIXTURE PASTE TOP SCH (08:50)
[2016-09-30] MEDS ORDERED: DILTIAZEM CD 240 MG CAPSULE PO SCH (09:00)
--- NOTE | 2016-09-30 11:03 | Case Mgmt Physician Query Form ---
TB Signs and Symptoms Screening ([place]) INSTRUCTIONS: To be completed annually on residents/staff with a significant Tuberculin Skin Test (TST) upon admission/hire or a prior significant TST. To be completed on all staff at hire. Please respond to each listed symptom with an (X) in either the "YES" or "NO" box. Do you currently have any of the following symptoms: YES NO (x ) ( ) A cough If yes, is it: ( ) Productive ( ) Non- productive (x ) ( ) Hemoptysis (spitting up blood) ( x) ( ) Chest pains ( x) ( ) Weight Loss (x ) ( ) Fever (x ) ( ) Night Sweats (x ) ( ) Weakness (x ) ( ) Loss of Appetite ( ) ( x) Difficulty Breathing If you answered YES" to any of the above questions, how long have symptoms been present? Comments: If you have any questions, please contact me. thank you, George Clemens RN Case Manager O:[phone] P: [phone] F: [phone] [email or web address]
[2016-09-30 11:52] VITALS: BP 91/56
[2016-09-30] MEDS ORDERED: TUBERCULIN SKIN TEST 0.1 ML SYRINGE INTRADERM ONE (12:00)
--- NOTE | 2016-09-30 12:53 | Discharge Summary ---
Hospital Course - Hospital Course Hospital Course: KNITTING DEMONSTRATOR: DR. CARR SUMMARY: Mr. Adam, 66WM, was admitted for elective cardiac catheterization with a history of abnormal stress test. Patient was being risk stratified for upcoming carotid endarterectomy to be performed by Dr. Burrell. September 20, 2016 patient underwent cardiac catheterization requiring PCI to proximal circumflex ( RAMÍREZ), occluded RCA noted. EF 45% with basal mid inferior akinesis. Postoperatively, he developed large retro-peritoneal hematoma and was taken emergently to surgery by Dr. Burrell requiring repair left external iliac artery. He required pressors for several days and was extubated over the weekend. He has required several units of packed red blood cells. evening, September, patient began to have frothy pink colored stools in abundance. Monday morning his anemia worsened and he required additional transfusions of packed red blood cells at that time. His Effient was discontinued (last dose , September 22, 2016), and aspirin 81 mg orally daily continued. It was thought that his pink-colored stools may be related to an ischemic colitis due to hypoperfusion. He experienced atrial fibrillation with rapid ventricular response and required IV Amiodarone and is currently taking 200mg orally BID. He has remained in normal sinus rhythm all weekend. SEPTEMBER 26, 2016: Over the weekend, patient has been extubated, no additional rectal bleeding since early Monday morning. Anemia stable. Will introduce Plavix 75mg orally daily starting this morning and monitor anemia closely. Will introduce liquids today and potentially transfer to telemetry. Patient may need SWB at discharge and we will ask Case Management to assess for needs. WBCs increased to 43K immediately post surgery but then normalized. This morning, WBCs 15 K. Will check UA, add incentive spirometry, aggressive pulmonary toilet and BC x 2. Will further discuss with Dr. Billy and await additional recommendations. Assessing the patient, he does have symptoms of sleep apnea, holding his breath while sleeping. SEPTEMBER 27, 2016: Overnight, Mr. Spear looks much better. He wakes easily, is pleasant and not confused. He remains in normal sinus rhythm. Blood pressure is elevated and this morning he will receive a higher dose of Cozaar. I will follow back this afternoon and check his blood pressure. May need additional adjustments in antihypertensives for better blood pressure control. Today, transfer to telemetry. We will ask case management to verify that he is being evaluated for swing bed or LTAC. Physical therapy and occupational therapy have been asked to evaluate and make additional recommendations. We will continue amiodarone 200 mg orally twice daily until October 01, 2016. If he remains in normal sinus rhythm at that time, will decrease to once daily. Labs are stable. Plavix has been initiated and will continue to follow his hemoglobin hematocrit daily. SEPTEMBER 29, 2016: Mr. Spear continues to improve. He remains in normal sinus rhythm. Blood pressure better controlled today with a higher dose of Cozaar yesterday. He continues to take aspirin, beta-yeimi, ARB, Diltiazem, ARB and lipid-lowering agent. SEPTEMBER 30, 2016: Overnight, patient continues to improve. Transferring to swing bed facility today. Awaiting swing bed placement. Extensively debilitated and will need aggressive physical therapy. Vital signs are stable. Patient will be given a one-month follow-up with Dr. waggoner. Patient will be given a 1 month follow-up with Dr. Burrell as he will eventually need carotid endarterectomy. Discharge medications include the following: Amiodarone 200 mg 1 p.o. daily Aspirin 81 mg 1 p.o. daily Coreg 25 mg 1 p.o. twice daily Plavix 75 mg 1 p.o. daily Diltiazem 240 mg 1 p.o. daily Gabapentin 600 mg 1 p.o. 3 times daily Losartan 100 mg 1 p.o. daily Crestor 20 mg 1 p.o. nightly Flomax 0.4 mg 1 p.o. every morning - Time spent with patient Time with patient DS: Greater than 30 minutes Diagnosis - Discharge Diagnosis (1) Paroxysmal a-fib Status: Chronic (2) Anemia Status: Acute (3) PVD (peripheral vascular disease) Status: Chronic (4) Presence of drug coated stent in left circumflex coronary artery Status: Chronic (5) Dyslipidemia Status: Chronic (6) COPD (chronic obstructive pulmonary disease) Status: Chronic (7) Tobacco abuse Status: Chronic (8) CAD (coronary artery disease) Status: Chronic (9) History of AAA (abdominal aortic aneurysm) repair Status: Chronic (10) Hypertension Status: Chronic Specialty Discharge - Follow Up or Referrals Follow up with: Ramon Burrell MD [Physician] - 10/31/16 2:15 pm (4weeks) Aamir Carr MD [Physician] - (3-4 WEEKS. BMP, Mg, CBC. EKG) Discharge Plan - Discharge Data Disposition: Disch/Xfer to Snf Condition at Discharge: Stable Discharge Diet: heart healthy Activity: other (per PT recommendations) Hygiene: no restrictions Weight Bearing at Discharge: other (Per physical therapy recommendations) Driving: not until seen by doctor Contact your physician if you experience:: fever over 101, Difficulty voiding, Redness or swelling, Nausea/Vomiting, Shortness of breath, Bleeding, pain uncontrolled by pain medications - Discharge Medications New Amiodarone Tab [Cordarone Tab] 200 mg PO DAILY tablet Carvedilol [Coreg] 25 mg PO BID tablet Gabapentin Cap/Tab [Neurontin Cap/Tab] 600 mg PO TID tablet Losartan [Cozaar] 100 mg PO DAILY tablet Clopidogrel [Plavix] 75 mg PO DAILY tablet Continue Baclofen Tab [Lioresal] 10 mg PO TID PRN PRN Reason: muscle relaxant HYDROcodone/ACETAMIN 10-325 [[place] 10-325] 1 tablet PO Q4H Rosuvastatin Calcium 20 mg PO BEDTIME Tamsulosin [Flomax] 0.4 mg PO QAM Diltiazem Cd Cap [Cardizem CD] 240 mg PO QAM Aspirin EC Tab 81 mg PO DAILY Discontinued Gabapentin Cap/Tab [Neurontin Cap/Tab] 600 mg PO TID - Follow Up or Referral Follow Up: Ramon Burrell MD [Physician] - 10/31/16 2:15 pm (4weeks) - Forms/Instructions Instructions: Left Heart Catheterization (DC), How to Stop Smoking (GEN), Heart Healthy Diet (GEN), Cigarette Smoking and Your Health (GEN), Coronary Intravascular Stent Placement, Ad Operations Coordinator (GEN) Exam - Constitutional Vitals: Period Temp Pulse Resp BP Sys/Go Pulse Ox Last 24 Hr 98 F-101.0 F 67-87 18-20 88-120/52-76 92-99 Exam: General: [Awakes easily and cooperates. ] [Appears uncomfortable at times .] HEENT: [PERRL, normocephalic, atraumatic. Mucous membranes moist. No jaundice noted. Conjunctiva moist and clear, sclerae anicteric] Neck: No JVD/HJR, no thyromegaly or lymphadenopathy noted. No carotid bruit appreciated Cardiac: [Regular rate and rhythm.] [No obvious murmur, rub or gallop.] Lungs: [Relatively clear to auscultation without accessory muscle use to assist the respiratory pattern.] Not requiring oxygen. Abdomen: Soft, bowel sounds normoactive. Nontender and nondistended. No abdominal bruit or thrill noted. No masses noted. Left lower abdominal incision healing well without dehiscence or drainage. Musculoskeletal: No fluid collection. Decreased range of motion is noted. Extremities: No clubbing, cyanosis noted. [ No edema noted.] Upper extremity pulses 2+. Lower extremity pulses 2+. Capillary refill less than 3 seconds. Skin: No unusual lesions or rashes. No skin breakdown appreciated. Neuro: Awake, alert. Moves all extremities well without hemiparesis or paralysis. No essential tremor is appreciated. Discharge Results Procedures and tests throughout hospitalization: Pending Orders 09/22/16 05:05 Occult Blood, Stool Stat 09/26/16 12:27 Blood Culture Routine Labs on day of discharge: Preliminary micro results at discharge 09/26/16 12:27 Blood Culture - Preliminary Blood No growth at 3 days 09/26/16 12:27 Blood Culture - Preliminary Blood No growth at 3 days - Imaging and Cardiology Cardiology Procedure: report reviewed by me Procedure: Chest x-ray: report reviewed by me DS: Provider Date of admission: 09/20/16 13:54 Primary care physician: . No PCP Attending physician on admission: Aamir Carr MD Consults: 09/20/16 08:27 Consult to Cardiac Rehabilitation [CONS] Routine Reason for Cardiac Rehabilitation: Risk Factor Modification 09/20/16 12:02 Consult to Physician [CONS] Routine Comment: Consulting Provider: Ramon Burrell Consult to Specialist Group: Surgery Person Notified: sid Date Notified: 09/20/16 Time Notified: 11:50 Consult Notification Comment: initiially consulted dr brizuela then changed to dr burrell 09/20/16 15:50 Consult to Physician [CONS] Routine Comment: vent settings & abg reported Consulting Provider: Mayo Nolen Person Notified: luz Date Notified: 09/20/16 Time Notified: 15:45 09/21/16 07:43 Consult to Physician [CONS] Routine Comment: Acute kidney injury following blood loss Consulting Provider: Consult to Specialist Group: Nephrology When should Consulting Provider be notified: Now Person Notified: oliver Date Notified: 09/21/16 Time Notified: 09:36 09/22/16 09:57 Consult to Physician [CONS] Routine Comment: following patient outpatient for fx tibia Consulting Provider: Russell Atkins Jr. Person Notified: ortho clinic Date Notified: 09/22/16 Time Notified: 10:47 Consult Notification Comment: reconsult done on 09/26 due to pt off vent -- spoke w/ rhonda @ clinic 09/23/16 08:26 Consult to Dietitian [CONS] Routine Reason for Dietitian: TF-Initiate/Manage 09/26/16 10:56 Consult to Physical Therapy [CONS] Routine Reason for Physical Therapy: Weakness Start Therapy: Today Consult Comment: DC needs as well. 09/26/16 10:59 Consult to Case Mgmt/Social Srvs [CONS] Routine Reason for Case Mgmt/Social Srvs: Discharge Planning Consult Comment: SWB candidate? 09/26/16 11:56 Consult to Physical Therapy [CONS] Routine Reason for Physical Therapy: Evaluate and Treat Consult Comment: Nonweightbearing on right with knee brace Discharging clinician: Radha Dangelo NP Expected date of discharge: 09/30/16
--- NOTE | 2016-09-30 13:15 | Physician Query Form ---
CLICK EDIT DOCUMENT TO SELECT QUERY ANSWER --> OK --> SIGN Yuko Chaney RN, CCDS Certified Clinical Mold Dumper W) [phone] (f) [phone] [email or web address] PROVIDERS: Make your selection(s) from the choices in EACH section by typing an "x" and enter comments in the comment section. Please use your independent medical judgment in providing your response. This request does not imply that any particular answer is desired or expected. CLINICAL INDICATORS: (Providers should not edit this section) "It was thought that his pink-colored stools may be related to an ischemic colitis due to hypoperfusion " ISCHEMIC COLITIS Clarify which of the following accurately represents the acuity of the above diagnosis. (x )x Acute ( ) Acute on chronic ( ) Chronic stable condition ( ) Remission ( ) Other, please specify: ( ) Clinically unable to determine COMMENTS: PLEASE ALSO DOCUMENT RESPONSE IN PROGRESS NOTES AND/OR DISCHARGE SUMMARY Use of terms such as suspected, likely, or probable (associated with a specific diagnosis that is being evaluated, monitored, or treated as if it exists) are acceptable and can be restated in the discharge summary if not ruled out. [facility]
[2016-10-01] MEDS ORDERED: AMIODARONE 200 MG TABLET PO SCH (09:00)
== END 2016-09-30 14:23 | disposition swing bed (61) | DRG 246 ==
LOC: N.CL 04:54 → N.TELEN 08:47 → N.CC 11:41 → N.TELES 09-27 12:30 → UNDODISIN 09-27 14:28
PROVIDERS: ADMIT Internal Medicine Cardiovascular Disease; ATTEND Internal Medicine Cardiovascular Disease
PROC: CLCCHCL (ICD-10-PCS; 2016-09-20 07:45)

== ENCOUNTER 2016-12-06 06:22 | Inpatient (IN) ==
--- NOTE | 2016-11-29 15:17 | EKG Report ---
Stationary ECG Study [facility] Test Date: 11/29/2016 3:18:44 PM Pat Name: RONDA GREER Department: Room: Gender: M Court Abstractor: GINO 12/06/16 TONO : 1950 Requested by: Ramon العراقي Order Number: [id number] Reading MD: RED CARLISLE Intervals [place] Rate: 58 P: 64 CA: 179 QRS: 84 QRSD: 89 T: 77 QT: 401 QTc: 398 Interpretive Statements SINUS RHYTHM Electronically Signed On 11-30-16 12:18:16 CDT by RED CARLISLE [email or web address]
[2016-11-29 15:57] LABS: Basophils # 0.1 10*3/uL (0.0-0.2); Basophils % 0.5 % (0.0-0.8); Eosinophils # 1.2 10*3/uL (0.0-0.87); Eosinophils % 12.5 % (0.00-10.9); Hematocrit 41.1 VOL% (42.0-52.0); Hemoglobin 13.7 GM/DL (14.0-18.0); Immature Granulocytes % 0.4 %; Immature Granulocytes Absolute 0.04 #; Lymphocytes % 21.7 % (21.2-54.2); Mean Corpuscular HGB Conc 33.3 GM/DL (32-36); Mean Corpuscular Hemoglobin 31 PG (27-34); Mean Corpuscular Volume 92.2 FL (87-102); Mean Platelet Volume 9.5 FL (9.6-12.0); Monocytes # 0.9 10*3/uL (0.11-0.8); Monocytes % 9.6 % (1.7-12.7); Neutrophils # 5.2 10*3/uL (1.4-7.4); Neutrophils % 55.3 % (38.7-73.9); Platelet Count 245 T/CUMM (130-400); Red Blood Count 4.46 MC/CUMM (3.8-5.5); Red Cell Distribution Width 15.7 % (9.3-17.3); White Blood Count 9.4 T/CUMM (4-12)
[2016-11-29 16:23] LABS: Eosinophils 9 % (0-10); Lymphocytes 28 % (20-55); Segmented Neutrophils 60 % (50-85); Total Cells Counted 100
[2016-11-29 16:24] LABS: Platelet Estimate Adequate; Poikilocytosis Slight
[2016-11-29 16:31] LABS: Calcium 8.6 MG/DL (8.5-10.1); Potassium 4.7 MMOL/L (3.5-5.1)
[2016-12-06] MEDS ORDERED: IPRATROPIUM 500 MCG/2.5 ML NEB RESP TX ONE (06:56)
[2016-12-06] MEDS ORDERED: ceFAZolin 1,000 MG VIAL ONE (07:50)
[2016-12-06] MEDS ORDERED: SODIUM CHLORIDE 0.9% 100 ML IV ONE (07:50)
[2016-12-06] MEDS ORDERED: HEPARIN 5,000 UNIT/1 ML VIAL ONE (07:55)
[2016-12-06] MEDS ORDERED: VANCOMYCIN 1,000 MG VIAL ONE (07:55)
[2016-12-06] MEDS ORDERED: LACTATED RINGERS 1,000 ML IV SCH (08:00)
--- NOTE | 2016-12-06 08:00 | History and Physical Update ---
History and Physical Update - History and Physical H&P was reviewed, the patient examined and there: are no changes in the patients condition since last H&P was completed.
[2016-12-06] MEDS ORDERED: GLYCOPYRROLATE 0.4 MG/2 ML VIAL ONE (08:26)
[2016-12-06] MEDS ORDERED: ONDANSETRON 4 MG/2 ML VIAL ONE (08:26)
[2016-12-06] MEDS ORDERED: PROPOFOL 200 MG/20 ML VIAL IV ONE (08:26)
[2016-12-06] MEDS ORDERED: ROCURONIUM 100 MG/10 ML VIAL IV ONE (08:26)
[2016-12-06] MEDS ORDERED: LIDOCAINE 1% 5 ML VIAL ONE (08:26)
[2016-12-06] MEDS ORDERED: HEPARIN 10,000 UNIT/10 ML VIAL ONE (08:26)
[2016-12-06] MEDS ORDERED: NEOSTIGMINE 10 MG/10 ML VIAL ONE (08:26)
[2016-12-06] MEDS ORDERED: ONDANSETRON 4 MG/2 ML VIAL IV PRN ×2 (10:07→10:38)
[2016-12-06] MEDS ORDERED: PROMETHAZINE 25 MG/1 ML VIAL IM PRN (10:07)
[2016-12-06] MEDS ORDERED: NALOXONE 0.4 MG/ML VIAL IV PRN (10:07)
[2016-12-06] MEDS ORDERED: DOPamine 800 MG/250 ML PREMIX IV PRN (10:07)
[2016-12-06] MEDS ORDERED: HYDROmorphone 2 MG/1 ML VIAL IV PRN ×3 (10:07→10:38)
[2016-12-06] MEDS ORDERED: GLUCAGON 1 MG VIAL IM PRN (10:07)
[2016-12-06] MEDS ORDERED: DEXTROSE 50% 25 GM/50 ML VIAL IV PRN (10:07)
[2016-12-06] MEDS ORDERED: BACLOFEN 10 MG TABLET PO PRN (10:09)
--- NOTE | 2016-12-06 10:17 | Operative Note ---
Date of procedure: 12/06/16 Procedure: Dr. العراقي operative report Aamir Spear. Surgeon: Dulce Maria Anesthesia: Workup oh general endotracheal Preoperative diagnosis: High-grade stenosis left internal carotid artery Postoperative diagnosis: Same Procedure: Left carotid endarterectomy with a bovine pericardial patch Indications for the procedure: Mr. Spear is a 66-year-old man with extensive vascular history has been found to have an extremely high-grade stenosis of the left internal carotid artery underwent cardiac catheterization and stenting earlier this year and is being maintained on Plavix I have offered and recommended a left carotid endarterectomy have explained the alternatives risks and complications which he understands fully and accepts Description of the procedure: After the induction of general endotracheal anesthesia the patient was placed in supine position his neck modestly extended and turned to the right. Left neck is prepped with ChloraPrep and draped in usual fashion. Incision is made in a skin crease below the angle of the mandible and carried into the subplatysmal space with cautery. I then dissected along the anterior border of the sternocleidomastoid muscle identifying the internal jugular vein and anterior facial vein. Anterior facial vein is ligated hemoclipped and divided I then dissected anterior to the jugular vein locating the common carotid artery and I note that the bifurcation is relatively low the superior thyroid artery is actually coming off somewhat anteriorly and is in the in the way of dissection of the carotid bifurcation. I control the common carotid artery with a maxi vessel loop and the patient received 5000 units of intravenous heparin. The superior thyroid artery is ligated hemoclipped and divided I then dissected along the carotid bifurcation separately controlling the external and internal carotid arteries the hypoglossal nerve was identified and protected. With adequate anticoagulation Vesseloops were brought up to control the artery and a longitudinal arteriotomy was made from the common carotid through the diseased bifurcation to the more normal distal internal carotid artery this is back flushed in an in-line Rushing- [place] shunt was placed backflushing and placing into the common carotid to reestablish flow. Notably there is a high the ulcerated plaque involving the carotid bifurcation. Standard endarterectomy was carried out removing the diseased intima and media from the bifurcation it feathered out nicely on both the internal and external carotid arteries loose flaps of medial or removed from the bifurcation of the loupe magnification and the endarterectomized segment was flushed with heparinized saline. Bovine pericardial patch is then used to close the arteriotomy with a running 6-0 Prolene suture the shunt was removed and appropriate time backflushing internal/external carotid arteries and flushing again with heparinized saline. With the arteriotomy closed flow was initiated from the common carotid into the external and then restored into the internal carotid artery. Hemostasis is fair although there is a good bit of oozing as might be expected with the non-reversal of his Plavix there is excellent flow in both the external and internal carotid arteries by Doppler protamine is partially reversed with 25 mg of protamine pledget of Surgicel was placed over the arteriotomy extra time was spent holding light pressure and then sprayed the area thoroughly with Tisseel spray to get much better hemostasis. Neck is irrigated with vancomycin is closed over quarter inch Yuliet drain with a running 3-0 Vicryl in the platysma and skin clips on the skin. Blood loss is estimated at 150 cc sponge needle and his counts are correct and the patient is taken to recovery in stable condition Surgeon / Physician: Ramon العراقي Results - Labs CBC & BMP: 11/29/16 15:50 11/29/16 15:50 Discharge Plan - Discharge Medications No Action Baclofen Tab [Lioresal] 10 mg PO TID PRN PRN Reason: muscle relaxant HYDROcodone/ACETAMIN 10-325 [[place] 10-325] 1 tablet PO Q4H Rosuvastatin Calcium 20 mg PO BEDTIME Amiodarone Tab [Cordarone Tab] 200 mg PO DAILY tablet Carvedilol [Coreg] 25 mg PO BID tablet Gabapentin Cap/Tab [Neurontin Cap/Tab] 600 mg PO TID tablet Losartan [Cozaar] 100 mg PO DAILY tablet Tamsulosin [Flomax] 0.4 mg PO QAM Diltiazem Cd Cap [Cardizem CD] 240 mg PO QAM Aspirin EC Tab 81 mg PO DAILY Clopidogrel [Plavix] 75 mg PO DAILY tablet - Follow Up or Referral - Forms/Instructions
[2016-12-06] MEDS ORDERED: SEVOFLURANE 1 UNIT/15 MINUTE INH ONE (10:23)
[2016-12-06] MEDS ORDERED: MIDAZOLAM 2 MG/2 ML VIAL ONE (10:24)
[2016-12-06] MEDS ORDERED: fentaNYL 100 MCG/2 ML VIAL ONE (10:24)
[2016-12-06] MEDS ORDERED: ePHEDrine 50 MG/ML AMP ONE (10:25)
[2016-12-06] MEDS ORDERED: SODIUM CHLORIDE 0.9% 1,000 ML IV ONE (10:25)
[2016-12-06] MEDS: LACTATED RINGERS 1,000 ML IV SCH ×2 (11:05→19:53)
[2016-12-06] MEDS: DILTIAZEM CD 240 MG CAPSULE PO SCH (12:04)
[2016-12-06] MEDS: LOSARTAN 50 MG TABLET PO SCH (12:05)
--- NOTE | 2016-12-06 12:25 | Anesthesia Post-Op ---
Anesthesia Post OP - Post Ansesthetic Evaluation Patient seen in post op: Yes Resp: within normal limits CV: within normal limits Mental: within normal limits Temp: within normal limits Hujf-Ls-Haddjzawi: within normal limits Nausea and Vomiting: within normal limits Pain: within normal limits
[2016-12-06] MEDS: oxyCODONE/ACETAMINOPHEN 5-325 MG TABLET PO PRN ×2 (15:00→20:06)
[2016-12-06] MEDS: TAMSULOSIN 0.4 MG CAPSULE PO SCH (15:04)
[2016-12-06] MEDS: ASPIRIN EC 81 MG TABLET PO SCH (15:04)
[2016-12-06] MEDS: GABAPENTIN 600 MG TABLET PO SCH ×2 (15:06→20:06)
--- NOTE | 2016-12-06 17:57 | Event Note ---
Mr. Spera is awake alert oriented good handgrip tongue midline no facial asymmetry neck looks good with no hematoma he is doing quite well
[2016-12-06] MEDS ORDERED: diphenhydrAMINE CAP 50 MG CAPSULE PO ONE (19:44)
[2016-12-06] MEDS: CARVEDILOL 25 MG TABLET PO SCH (20:07)
[2016-12-06] MEDS ORDERED: ROSUVASTATIN 20 MG TABLET PO SCH (21:00)
[2016-12-07] MEDS: oxyCODONE/ACETAMINOPHEN 5-325 MG TABLET PO PRN ×3 (05:06→12:24)
[2016-12-07] MEDS: LOSARTAN 50 MG TABLET PO SCH (08:49)
--- NOTE | 2016-12-07 08:49 | Event Note ---
Mr. Spear is fully awake alert oriented doing well his neck looks good drain is been removed he is neurologically intact vital signs are good. Will get a breakfast moved to a room upstairs and likely be discharged this afternoon
[2016-12-07] MEDS: ASPIRIN EC 81 MG TABLET PO SCH (08:50)
[2016-12-07] MEDS: TAMSULOSIN 0.4 MG CAPSULE PO SCH (08:50)
[2016-12-07] MEDS: CARVEDILOL 25 MG TABLET PO SCH (08:50)
[2016-12-07] MEDS: DILTIAZEM CD 240 MG CAPSULE PO SCH (08:50)
[2016-12-07] MEDS: GABAPENTIN 600 MG TABLET PO SCH ×2 (08:50→14:16)
[2016-12-07] MEDS ORDERED: AMIODARONE 200 MG TABLET PO SCH (09:00)
[2016-12-07] MEDS ORDERED: CLOPIDOGREL 75 MG TABLET PO SCH ×2 (09:00)
[2016-12-07] MEDS ORDERED: ASPIRIN EC 81 MG TABLET PO SCH (12:10)
[2016-12-07 12:28] VITALS: BP 120/71
--- NOTE | 2016-12-07 13:19 | Pathology Report from [facility] ---
[facility] ACCESSION # : [id number] PATIENT NAME : Aamir Greer ORDERING DR : ELLIOTT POWER MD CLINICAL HX: LT carotid stenosis POST-OP DX: Same SPECIMEN INFO: LT cartoid plaque GROSS DESCRIPTION: Received in formalin labeled AAMIR GREER are fragments of hyperemic [place] endarterectomy tissue measuring collectively 0.7 x 0.6 cm. Calcification is present within the lumen. Rn Lpn Lvn sections are submitted in one cassette following decalcification. DIAGNOSIS FOR AAMIR GREER: LEFT CAROTID ARTERY, ENDARTERECTOMY: Calcified atheromatous plaque. COLLECTED DATE: 12/06/2016 [facility] REPORT DATE: 12/07/2016 ELECTRONICALLY SIGNED BY: Xiang Crews M.D. 12/07/2016 - 10:10:07 [facility]
--- NOTE | 2016-12-07 15:27 | Discharge Summary ---
Hospital Course - Hospital Course Hospital Course: Aamir Spear 66-year-old man with a high-grade left internal carotid artery stenosis underwent a left carotid endarterectomy yesterday he has fully awake alert oriented with no difficulties postoperatively neck looks good with no hematoma drain is removed neurologically he is intact he will be discharged home to continue 81 mg aspirin Plavix as well as a number of other medications wound care diet exercise expected recovery possible complications I will see him in office next week for staple removal Specialty Discharge - Follow Up or Referrals Follow up with: Ramon العراقي MD [Physician] - 12/13/16 2:30 pm (appt.with IN ONE WK. DECEMBER 13 @ 2:30) Discharge Plan - Discharge Data Disposition: Disch To Home/Self Care Condition at Discharge: Stable Discharge Diet: advance to your usual diet Activity: resume usual activities as tolerated Hygiene: may shower Weight Bearing at Discharge: weight bear as tolerated Driving: not until seen by doctor Contact your physician if you experience:: fever over 101, Nausea/Vomiting, Bleeding - Discharge Medications New Hydrocodone/Acetaminophen [[place] 10-325 Tablet] 1 each PO Q6HR PRN #20 tablet PRN Reason: pain Continue Baclofen Tab [Lioresal] 10 mg PO TID PRN PRN Reason: muscle relaxant HYDROcodone/ACETAMIN 10-325 [[place] 10-325] 1 tablet PO Q4H Rosuvastatin Calcium 20 mg PO BEDTIME Amiodarone Tab [Cordarone Tab] 200 mg PO DAILY tablet Carvedilol [Coreg] 25 mg PO BID tablet Gabapentin Cap/Tab [Neurontin Cap/Tab] 600 mg PO TID tablet Losartan [Cozaar] 100 mg PO DAILY tablet Clopidogrel [Plavix] 75 mg PO DAILY #60 tablet Tamsulosin [Flomax] 0.4 mg PO QAM Diltiazem Cd Cap [Cardizem CD] 240 mg PO QAM Aspirin EC Tab 81 mg PO DAILY - Follow Up or Referral Follow Up: Ramon العراقي MD [Physician] - 12/13/16 2:30 pm (appt.with IN ONE WK. DECEMBER 13 @ 2:30) - Forms/Instructions Exam - Constitutional Vitals: Period Temp Pulse Resp BP Sys/Go Pulse Ox Last 24 Hr 97.9 F-100.2 F 48-69 15-24 94-149/44-71 92-98 Discharge Results Procedures and tests throughout hospitalization: Pending Orders 12/06/16 11:09 MRSA Surveillence, Inf Control Routine Labs on day of discharge: Preliminary micro results at discharge 12/06/16 11:09 MRSA Surveillance Culture - Preliminary Nasal Passage No MRSA isolated. DS: Provider Date of admission: 12/06/16 06:22 Primary care physician: . No PCP Attending physician on admission: Ramon العراقي MD Consults: 12/06/16 10:11 Consult to Physician [CONS] Routine Comment: patient known to you Consulting Provider: Aamir Carr Consulting Provider Notified: Yes Consult to Specialist Group: Cardiology Person Notified: ERIN Date Notified: 12/06/16 Time Notified: 11:15 Discharging clinician: Ramon العراقي MD
--- NOTE | 2016-12-07 15:55 | Cardiology Progress Note ---
Juwan Mclain Vanessa, RN, am scribing for, and in the presence of, Sona Jacobsen MD 15:54. Assessment and Plan - Time spent with patient Time spent with patient: Greater than 30 minutes (1) Status post carotid endarterectomy Status: Acute Assessment and plan: SEE PLAN OF CARE LISTED BELOW. Current Visit: Yes (2) Peripheral vascular disease Status: Chronic Assessment and plan: SEE PLAN OF CARE LISTED BELOW. Current Visit: No (3) CAD (coronary artery disease) Status: Chronic Assessment and plan: SEE PLAN OF CARE LISTED BELOW. Current Visit: No Qualifiers: Coronary Disease-Associated Artery/Lesion type: [place] artery [place] vs. transplanted heart: [place] heart Associated angina: without angina Qualified Code(s): I25.10 - Atherosclerotic heart disease of [place] coronary artery without angina pectoris (4) COPD (chronic obstructive pulmonary disease) Status: Chronic Assessment and plan: SEE PLAN OF CARE LISTED BELOW. Current Visit: No (5) Dyslipidemia Status: Chronic Assessment and plan: SEE PLAN OF CARE LISTED BELOW. Current Visit: No (6) History of AAA (abdominal aortic aneurysm) repair Status: Chronic Assessment and plan: SEE PLAN OF CARE LISTED BELOW. Current Visit: No (7) Hypertension Status: Chronic Assessment and plan: SEE PLAN OF CARE LISTED BELOW. Current Visit: No (8) Paroxysmal a-fib Status: Chronic Assessment and plan: SEE PLAN OF CARE LISTED BELOW. Current Visit: No (9) Smoker Status: Chronic Assessment and plan: SEE PLAN OF CARE LISTED BELOW. Current Visit: Yes Cardiology - PN: Subj Interval history: PRIMARY BIG MACHINE CONSULTANT: DR. CARR SUMMARY: Mr. Adam is a 66 year old white male with risk factor significant for: hypertension, personal history of CAD, chronic tobaccoism. Past medical history includes paroxysmal atrial fibrillation, PVD with neuropathy, and COPD. Past surgical history includes endovascular AAA repair by Dr. Black in July 2010. He developed type III endoleak with subsequent bilateral iliac artery stenting and graft placement by Dr. العراقي in July 2016. Postoperatively, he developed atrial fibrillation but converted with IV Cardizem. He is maintained with PO Cardizem daily. In September 2016, patient was admitted for elective cardiac catheterization after abnormal stress test. He required PCI of the proximal circumflex with drug-eluting stent, and RCA occlusion was noted, EF 45% with basal mid inferior akinesis. Post cath, he developed large retroperitoneal hematoma and required emergency repair of left external iliac artery per Dr. العراقي. Course of admission was also complicated by lower GI bleeding which was contributed to ischemic colitis due to hyperperfusion, and he also experienced atrial fibrillation with RVR, requiring IV amiodarone and then transitioning to PO amiodarone. Anemia improved after multiple blood transfusions, and patient was able to be discharged home with Plavix and low- dose ASA. He was discharged to swing bed for aggressive physical therapy prior to seeing Dr. العراقي for carotid endarterectomy. Patient presented to [facility] on 12/[facility] for elective left carotid endarterectomy of asymptomatic 99% carotid artery stenosis. Procedure was uneventful, and patient was monitored closely in ICU overnight. Cardiology was consulted for postoperative cardiac medical management. December: Mr. Adam is awake, alert, and pleasant this morning in ICU. Reports he "slept like a baby" last night. No chest pain, dyspnea, anginal complaint. Reports his throat is still a little sore. Surgical incision to left side of neck with carlos intact and no redness, drainage, bleed. Afebrile, vitals stable. Regular rhythm, pulse 60s per tele monitoring. Patient is tentatively planned for discharge home later today. He has an appointment already scheduled with Dr. Carr on December 14. He can keep this appointment for follow up ASSESSMENT/PLAN: 1. S/P LEFT CEA - Patient had asymptomatic high grade stenosis of left ICA now s /p repair. POD #1, he continues to do well from a cardiac standpoint. Cardiac monitoring is without ischemic changes. No anginal complaint. 2. HYPERTENSION - Fairly well controlled this morning. Continue current medication regimen. 3. BRADYCARDIA - Immediately postop, had some asymptomatic bradycardia in the 40s-50s and overnight as well. He did take his routine home medications yesterday morning prior to surgery including amiodarone, diltiazem CD, carvediolol, losartan. Suspect this is baseline for him. 4. CAD - Status post drug eluting stent placement in September 2016. Continue Plavix, low dose ASA, beta yeimi, statin, ARB. 5. COPD - Stable. Continue current plan of care. 6. CHRONIC TOBACCOISM - Discussed merits of tobacco cessation and stressed importance of quitting. 7. DYSLIPIDEMIA - Continue statin. 8. PAROXYSMAL ATRIAL FIBRILLATION - Maintained with amiodarone and diltiazem CD. He is not formally anticoagulated for stroke prevention due to previous bleeding and anemia. He is also high risk for falls. Patient has been in sinus rhythm since admission. 9. PVD / NEUROPATHY - Previous iliac stenting and also endovascular AAA repair. He also has probable peroneal nerve injury with footdrop. Neurontin continued. Exam (Progress Note) - Constitutional Vitals: Period Temp Pulse Resp BP Sys/Go Pulse Ox Last 24 Hr 97.2 F-100.2 F 47-68 14-24 96-149/41-67 92-100 Exam: General: Present: No Apparent Distress HEENT: Present: PERRL, Normocephaly, Other (poor dentition and oral hygiene). Absent: Jaundice, pallor Neck: Present: Supple Neck, Midline Trachea, No JVD/HJR, No Masses, Bruit ( bilateral), Other (surgical incision left neck with carlos intact, dressing in place s/p CEA) Cardiac: Present: Regular Rhythm and rate, Systolic Murmur. Lungs: Present: Clear Ascult./Percussion, No Wheeze, Rales, Rhonchi. Not requiring supplemental oxygen this morning. Neuro: Present: Grossly Intact. Absent: Numbness, Tingling, Resting Tremor, Essential Tremor Abdomen: Present: Soft, Active Bowel Sounds, No Pulsations/Bruits. Absent: Ascites, Tender, Firm Skin: Present: Clear. Absent: Rash, Suspicious Lesions, Moist, Bruising Musculoskeletal: Present: No Fluid Collection, Normal Range of Motion Extremities: Present: No Clubbing, No Cyanosis, No Edema, Normal Upper Extr. Pulses (3+ bilaterally), Normal Lower Extr. Pulses (2+ bilaterally), Capillary Refill (normal), Other (warm, dry). Absent: Mottled Result/EKG - Labs CBC & BMP: 11/29/16 15:50 11/29/16 15:50 Lab Results: I have reviewed the past 24 hour labs - EKG EKG results: interpreted by me, no acute changes EKG shows: sinus rhythm Quality Measures - VTE Contraindication to Pharmacological VTE Prophylaxis: High Risk of Bleeding Specialty Discharge - Follow Up or Referrals Follow up with: Ramon العراقي MD [Physician] - 12/13/16 2:30 pm (appt.with IN ONE WK. DECEMBER 13 @ 2:30) I, Sona Jacobsen MD, personally performed the services described in this documentation, ascribed by Mary Echeverria RN in my presence, and it is both accurate and complete .
--- NOTE | 2016-12-07 15:59 | Cardiology Consult Note ---
Juwan Mclain Vanessa, RN, am scribing for, and in the presence of, Sona Jacobsen MD 15:57. Assessment and Plan - Time spent with patient Time spent with patient: Greater than 30 minutes (Due to assessment, planning, documentation, and medication review) Time spent discussing smoking cessation with patient: more than 10 minutes (1) Status post carotid endarterectomy Status: Acute Assessment and plan: SEE PLAN OF CARE LISTED BELOW. Current Visit: Yes (2) Peripheral vascular disease Status: Chronic Assessment and plan: SEE PLAN OF CARE LISTED BELOW. Current Visit: No (3) CAD (coronary artery disease) Status: Chronic Assessment and plan: SEE PLAN OF CARE LISTED BELOW. Current Visit: No Qualifiers: Coronary Disease-Associated Artery/Lesion type: [place] artery [place] vs. transplanted heart: [place] heart Associated angina: without angina Qualified Code(s): I25.10 - Atherosclerotic heart disease of [place] coronary artery without angina pectoris (4) COPD (chronic obstructive pulmonary disease) Status: Chronic Assessment and plan: SEE PLAN OF CARE LISTED BELOW. Current Visit: No (5) Dyslipidemia Status: Chronic Assessment and plan: SEE PLAN OF CARE LISTED BELOW. Current Visit: No (6) History of AAA (abdominal aortic aneurysm) repair Status: Chronic Assessment and plan: SEE PLAN OF CARE LISTED BELOW. Current Visit: No (7) Hypertension Status: Chronic Assessment and plan: SEE PLAN OF CARE LISTED BELOW. Current Visit: No (8) Paroxysmal a-fib Status: Chronic Assessment and plan: SEE PLAN OF CARE LISTED BELOW. Current Visit: No (9) Smoker Status: Chronic Assessment and plan: SEE PLAN OF CARE LISTED BELOW. Current Visit: Yes History of Present Illness - Data of Consult Patient: known to practice within the last 3 years Consult date: 12/06/16 Requesting Physician: Ramon العراقي - Consult Narrative Reason for consult: s/p left CEA; cardiac medical management History of present illness: PRIMARY GOLF STUD RIVETER: DR. GARZA Mr. Adam is a 66 year old white male with risk factor significant for: hypertension, personal history of CAD, chronic tobaccoism. Past medical history includes paroxysmal atrial fibrillation, PVD with neuropathy, and COPD. Past surgical history includes endovascular AAA repair by Dr. Black in July 2010. He developed type III endoleak with subsequent bilateral iliac artery stenting and graft placement by Dr. العراقي in July 2016. Postoperatively, he developed atrial fibrillation but converted with IV Cardizem. He is maintained with PO Cardizem daily. In September 2016, patient was admitted for elective cardiac catheterization after abnormal stress test. He required PCI of the proximal circumflex with drug-eluting stent, and RCA occlusion was noted, EF 45% with basal mid inferior akinesis. Post cath, he developed large retroperitoneal hematoma and required emergency repair of left external iliac artery per Dr. العراقي. Course of admission was also complicated by lower GI bleeding which was contributed to ischemic colitis due to hyperperfusion, and he also experienced atrial fibrillation with RVR, requiring IV amiodarone and then transitioning to PO amiodarone. Anemia improved after multiple blood transfusions, and patient was able to be discharged home with Plavix and low- dose ASA. He was discharged to swing bed for aggressive physical therapy prior to seeing Dr. العراقي for carotid endarterectomy. Patient is now admitted to [facility] after presenting this morning for elective left carotid endarterectomy for asymptomatic 99% left internal carotid artery stenosis. Procedure was uneventful, and he is being monitored closely overnight in the ICU. He is awake this afternoon but is drowsy. He is not having any chest pain, dyspnea, or other anginal complaint. Reports he has a bit of a sore throat at this time, and that is his biggest complaint. BP 109/ 74. He has slightly bradycardic with pulse rate no lower than 45 bpm during exam. According to chart, patient took his own Cardizem CD, carvedilol, and amiodarone this morning. Cardiology was asked to see for postoperative cardiac medical management. ASSESSMENT/PLAN: 1. S/P LEFT CEA - Patient had asymptomatic high grade stenosis of left ICA now s /p repair. Perioperatively, he is doing well from a cardiac standpoint. EKG in the morning. 2. HYPERTENSION - Well controlled with borderline hypotension at times. Adjust antihypertensive medications as medical condition indicates. 3. BRADYCARDIA - Asymptomatic. May be slightly exacerbated in immediate postoperative period due to anesthesia. Monitor closely. 4. CAD - Status post drug eluting stent placement in September 2016. Continue Plavix, low dose ASA, beta yeimi, statin, ARB. 5. COPD - Stable. Continue current plan of care. 6. CHRONIC TOBACCOISM - Discussed merits of tobacco cessation and stressed importance of quitting. 7. DYSLIPIDEMIA - Continue statin. 8. PAROXYSMAL ATRIAL FIBRILLATION - Maintained with amiodarone and diltiazem CD. He is not formally anticoagulated for stroke prevention due to previous bleeding and anemia. He is also high risk for falls. 9. PVD / NEUROPATHY - Previous iliac stenting and also endovascular AAA repair. He also has probable peroneal nerve injury with footdrop. Neurontin continued. CC: Ramon العراقي MD - Home Medications and Allergies Home Medications: Home Medications Medication Instructions Recorded Confirmed Type Baclofen Tab [Lioresal] 10 mg PO TID PRN 07/06/16 12/06/16 History HYDROcodone/ACETAMIN 10-325 [Valentine 1 tablet PO Q4H 07/06/16 12/06/16 History 10-325] Tamsulosin [Flomax] 0.4 mg PO QAM 07/06/16 12/06/16 History Diltiazem Cd Cap [Cardizem CD] 240 mg PO QAM 07/14/16 12/06/16 History Rosuvastatin Calcium 20 mg PO BEDTIME 08/28/16 12/06/16 History Aspirin EC Tab 81 mg PO DAILY 09/20/16 12/06/16 History Amiodarone Tab [Cordarone Tab] 200 mg PO DAILY tablet 09/30/16 12/06/16 Rx Carvedilol [Coreg] 25 mg PO BID tablet 09/30/16 12/06/16 Rx Gabapentin Cap/Tab [Neurontin 600 mg PO TID tablet 09/30/16 12/06/16 Rx Cap/Tab] Losartan [Cozaar] 100 mg PO DAILY tablet 09/30/16 12/06/16 Rx Clopidogrel [Plavix] 75 mg PO DAILY #60 tablet 12/07/16 Rx Hydrocodone/Acetaminophen [Valentine 1 each PO Q6HR PRN #20 tablet 12/07/16 Rx 10-325 Tablet] Allergies/Adverse Reactions: Allergies Allergy/AdvReac Type Severity Reaction Status Date / Time Sulfa (Sulfonamide Allergy Severe RASH Verified 11/29/16 15:01 Antibiotics) - Constitutional Constitutional: Absent: anorexia, fatigue, fever(s), stops breathing during sleep, weakness, weight gain, weight loss - EENT Eyes: Present: requires corrective lense Ears: Absent: ear pain Nose, mouth and throat: Present: hoarseness, sore throat. Absent: dysphagia, epistaxis, nasal congestion, neck pain, sinus pressure, throat swelling, tongue swelling, vertigo - Cardiovascular Cardiovascular: Absent: chest pain at rest, chest pain with activity, dyspnea, dyspnea on exertion, edema, orthopnea, palpitations, PND - Respiratory Respiratory: Absent: cough, dyspnea on exertion - Gastrointestinal Gastrointestinal: Absent: abdominal pain, constipation, diarrhea, dysphagia, early satiety, hematemesis, hematochezia, melena, nausea, vomiting - Genitourinary Genitourinary: Absent: dysuria, flank pain, hematuria, nocturia - Musculoskeletal Musculoskeletal: Present: arthralgias, limited range of motion - Neurological Neurological: Absent: confusion, dizziness, frequent falls, syncope, tremor(s) - Psychiatric Psychiatric: Absent: anxiety, confusion, depression - Endocrine Endocrine: Absent: cold intolerance, heat intolerance - Hematologic/Lymphatic Hematologic/Lymphatic: Present: easy bruising. Absent: easy bleeding Medical,Surgical,& Family Hx - Medical History Cardio: History of: Cardiac Dysrhythmia (AFIB), CAD, Hypertension, Cardiovascular Problems (aneurysm, DR GARZA.) No history of: CHF, Pacemaker Psychological: No history of: Anxiety Disorders, Depression Neurology: No history of: Dementia, Seizures, TIA HEENT: History of: Ear Problem (hearing loss), Eye Problem Endocrine: History of: Dyslipidemia No history of: Diabetes Mellitus (NIDDM), Thyroid Disorder Rheumatology: No history of;: Fibromyalgia, Rheumatoid Arthritis Respiratory: History of: COPD, Respiratory Problems (FLU VAC-YES; PNEU VAC- YES. ) No history of: Obstructive Sleep Apnea Renal: History of: Renal Problems (URINARY RETENTION) Genitourinary: No history of: Kidney Stones Gastrointestinal: History of: Gastrointestinal Bleed No history of: GERD Musculoskeletal: History of: Herniated Disk (4 was givern injections in [place] does not remember dr or clinic), Musculoskeletal Problems (RT LEG FX.) Hematology: History of: Anemia, Bleeding Problems No history of: Blood Transfusion Reaction, Clotting Problems Other: History of: Miscellaneous Medical Problems No history of: Anesthesia Reactions, Cancer, HIV - Surgical History Cardiac Surgeries: Sugical HX of: Cardiac Catheterization (STENT) Abdominal Surgeries: Surgical HX of: Abdominal Surgery (aneurysm) Orthopedic Surgeries: Surgical HX of;: Orthopedic Surgery (injections) - Family History Family History: Reports;: Family Cancer (mom), Family Heart Disease (dad) - Social History Smoking Status: Current every day smoker Time spent discussing smoking cessation with patient: more than 10 minutes Frequency of Alcohol Use: None Type of Drug Use: None Functional capacity: uses cane/walker Physical Examination Vital Signs Temp Pulse Resp BP Pulse Ox 98.1 F 57 L 20 134/70 97 12/06/16 07:07 12/06/16 07:07 12/06/16 07:07 12/06/16 07:07 12/06/16 07:07 General: Present: No Apparent Distress HEENT: Present: PERRL, Normocephaly, Other (poor dentition and oral hygiene). Absent: Jaundice Neck: Present: Supple Neck, Midline Trachea, No JVD/HJR, No Masses, Bruit ( bilateral), Other (surgical dressing dry/intact left neck s/p CEA) Cardiac: Present: Regular Rhythm, Systolic Murmur, Bradycardia Lungs: Present: Clear Ascult./Percussion, Oxygen (supplemental; 2L/NC), No Wheeze, Rales, Rhonchi Neuro: Present: Grossly Intact. Absent: Numbness, Tingling, Resting Tremor, Essential Tremor Abdomen: Present: Soft, Active Bowel Sounds, No Pulsations/Bruits. Absent: Ascites, Tender, Firm Skin: Present: Clear. Absent: Rash, Suspicious Lesions, Moist, Bruising Musculoskeletal: Present: No Fluid Collection, Normal Range of Motion Extremities: Present: No Clubbing, No Cyanosis, No Edema, Normal Upper Extr. Pulses (3+ bilaterally), Normal Lower Extr. Pulses (2+ bilaterally), Capillary Refill (normal), Other (warm, dry). Absent: Mottled Result/EKG - Labs CBC & BMP: 11/29/16 15:50 11/29/16 15:50 Lab Results: I have reviewed the past 24 hour labs - Diagnostic Findings Procedure: Chest x-ray: image reviewed by me, report reviewed by me - EKG EKG results: interpreted by me, no acute changes EKG shows: bradycardia (sinus reza) Quality Measures - VTE Contraindication to Pharmacological VTE Prophylaxis: High Risk of Bleeding Specialty Discharge - Follow Up or Referrals Follow up with: Ramon العراقي MD [Physician] - 12/13/16 2:30 pm (appt.with IN ONE WK. DECEMBER 13 @ 2:30) IDelmar Jennifer, MD, personally performed the services described in this documentation, ascribed by Mary Echeverria RN in my presence, and it is both accurate and complete [id number] .
== END 2016-12-07 17:36 | disposition home or self-care (01) | DRG 39 ==
LOC: N.SDSINP 06:22 → N.ICU 10:17 → N.3E 12-07 12:08
PROVIDERS: ADMIT Surgery; ATTEND Surgery